=== PATIENT | female | born 1940 | race Caucasian/White ===

== ENCOUNTER 2020-02-19 06:33 | Emergency (ER) | payer MEDICARE, SELFPAY ==
[2020-02-19 06:40] VITALS: BP 156/68; PULSE 92; RESP 18; TEMP 37.4; O2SAT 95
[2020-02-19 07:46] LABS: Add Urine Microscopic? YES; Appearance Urine Cloudy (Clear); Bilirubin Urine Negative (Negative); Blood Urine 2+ (Negative); Color Urine Yellow (Yellow); Glucose Urine UA Negative (Negative); Ketones Urine Trace (Negative); Leukocyte Esterase Ur 3+ LEU/UL (Negative); Nitrate Urine Positive (Negative); Protein Urine 2+ (Negative); Urobilinogen Urine 0.2 mg/dL (0.2-1.0); pH Urine 5.5 (5.0-8.0)
[2020-02-19 07:52] LABS: Bacteria Urine 1+ /hpf; Squamous Epithelial Cell Urine Occasional /hpf (Few); WBC Urine 31-50 /hpf (0-3)
[2020-02-19] MEDS: cefTRIAXone 1 GM VIAL IM (08:19)
[2020-02-19] MEDS: LIDOCAINE HCL 1% LOCAL INJ 20 ML VIAL 2.1 ML INFILTRATE (08:19)
--- NOTE | 2020-02-19 08:55 | ED.FEMALEGU ---
HPI - Female Genitourinary General Chief complaint: Urogenital-Female Stated complaint: Bladder infection since tuesday Time Seen by Provider: 02/19/20 07:30 Source: patient Mode of arrival: ambulatory Limitations: no limitations History of Present Illness HPI Narrative: She comes in after having complaints of dysuria for the past 5 days. Two days ago she had a fever. Today she comes in because she is not feeling well with muscle aches as well. MD elicited complaint: dysuria and UTI Pertinent past history: recurrent UTIs Quality of pain: burning Consistency: intermittent Urinary symptoms: Dysuria Exacerbating factors: urination Relieving factors: other (not urinating) Associated symptoms: denies other symptoms Treatment prior to arrival: none Related Data Allergies Allergy/AdvReac Type Severity Reaction Status Date / Time No Known Allergies Allergy Verified 06/25/19 13:12 Review of Systems Review of Systems: Narrative: Headache, body aches, feeling run down All systems reviewed & are unremarkable except as noted in HPI and below Genitourinary: Comments: dysuria, and increased frequency PMFSH Past Medical History Medical History (Updated 02/19/20 @ 09:09 by Saul Barraza MD) Hypertension Surgical History Surgical History History of appendectomy Social History Social History Smoking status: Never smoker Exam Const: General: no acute distress HENMT: Head: normal to inspection Eyes: General: appearance normal, both eyes and all related structures Neck: Other: supple, negative Kernig's Negative Brudzinski's sign. Resp: Effort & Inspection: normal respiratory effort Auscultation: clear to auscultation bilaterally Cardio: Rate: regular rate Rhythm: regular rhythm GI: GI Palp: Yes Soft to palpation Course Course Emergency Course: She was given ceftriaxone 1gm IM. We did a urine and sent a Covid test, which she will be called with results. Vital Signs Vital signs: Vital Signs Temperature 37.4 C 02/19/20 06:40 Pulse Rate 92 02/19/20 06:40 Respiratory Rate 18 02/19/20 06:40 Blood Pressure 156/68 H 02/19/20 06:40 Pulse Oximetry 95 02/19/20 06:40 Temperature 37.4 C 02/19/20 06:40 Pulse Rate 92 02/19/20 06:40 Respiratory Rate 18 02/19/20 06:40 Blood Pressure 156/68 H 02/19/20 06:40 Pulse Oximetry 95 02/19/20 06:40 MDM - Female Genitourinary Lab Data Attestation: I reviewed the patient's lab results. Labs: Lab Results 02/19/20 02/19/20 Range/Units 07:26 07:32 Urine Color Yellow (Yellow) Urine Appearance Cloudy A (Clear) Urine pH 5.5 (5.0-8.0) Ur Specific [place] 1.020 (1.010-1.020) Urine Protein 2+ H (Negative) Urine Glucose (UA) Negative (Negative) Urine Ketones Trace H (Negative) Ur Blood (Man) 2+ H (Negative) Urine Nitrate Positive H (Negative) Urine Bilirubin Negative (Negative) Urine Urobilinogen 0.2 (0.2-1.0) mg/dL Leukocyte Esterase Rfl 3+ H (Negative) ARACELIS/UL Urine RBC 6-10 H (0-2) /hpf Urine WBC 31-50 H (0-3) /hpf Ur Squamous Epith Cells Occasional (Few) /hpf Urine Bacteria 1+ H (None) /hpf SARS-CoV-2 RNA (RT-PCR) Pending Urine Characteristics Cloudy Discharge Plan Discharge Clinical Impression: Pyelonephritis Patient Disposition: Home, Self-Care Condition: Stable Instructions: Antibiotic Form Prescriptions: New levofloxacin 250 mg tablet 250 mg PO DAILY Qty: 30 RF: 0 No Action hydrochlorothiazide 25 mg tablet 25 mg PO DAILY Qty: 30 RF: 5 losartan 25 mg tablet 25 mg PO DAILY Qty: 30 RF: 5 Follow-up/Referrals: Duke Mejia MD [Primary Care Provider] - Time of Disposition: 09:19
[2020-02-19 09:20] VITALS: BP 150/75; PULSE 84; RESP 18; TEMP 37.2; O2SAT 99
[2020-02-20 18:20] LABS: SARS-CoV-2 RNA PCR Negative
== END 2020-02-19 09:28 | disposition home or self-care (01) ==
PROVIDERS: Emergency Provider Emergency Medicine; PCP Family Medicine
DX: N12 Tubulo-interstitial nephritis, not specified as acute or chronic (principal); I10 Essential (primary) hypertension; Z20.828 Contact with and (suspected) exposure to other viral communicable diseases
CPT/HCPCS: 81001; 87077; 87086; 87088; 87186; 87635; 96372; 99283; C9803; J0696; U0003

== ENCOUNTER 2020-07-30 09:37 | Outpatient (CLI) | payer MEDICARE, SELFPAY ==
[2020-07-30 09:50] LABS: Basophils Absolute Auto 0.03 K/mm3 (0.00-0.10); Basophils Percent Auto 0.7 % (0.0-1.0); Eosinophils Absolute Auto 0.13 K/mm3 (0.02-0.50); Hematocrit 44.6 % (35.0-42.0); Hemoglobin 15.1 g/dL (11.7-13.8); Immature Granulocyte Absolute 0.01 K/mm3 (0.00-0.00); Immature Granulocyte Percent A 0.2 % (0.0-0.0); Lymphocytes Absolute Auto 1.09 K/mm3 (1.10-4.50); Mean Corpuscular HGB Conc 33.9 g/dL (32.0-36.0); Mean Corpuscular Hemoglobin 29.3 pg (27.0-31.0); Mean Corpuscular Volume 86.6 fL (78.0-102.0); Mean Platelet Volume 9.8 fl (9.2-11.8); Monocytes Absolute Auto 0.39 K/mm3 (0.10-0.90); Monocytes Percent Auto 8.9 % (2.0-11.0); Neutrophils Absolute Auto 2.7 K/mm3 (1.7-7.2); Neutrophils Percent Auto 62.2 % (50.0-70.0); Platelet Count Result 198 K/mm3 (150-420); Red Blood Count 5.15 M/mm3 (4.20-5.40); Red Cell Distribution Width 13.4 % (11.6-14.4); White Blood Count 4.4 K/mm3 (4.8-10.8)
[2020-07-30 10:42] LABS: Alanine Aminotransferase 35 U/L (14-59); Albumin Level 4.1 g/dL (3.4-5.0); Alkaline Phosphatase 68 U/L (46-116); Anion Gap 7 mmol/L (8-16); Aspartate Amino Transferase 14 U/L (15-37); Bilirubin,Total 0.8 mg/dL (0.00-1.00); Blood Urea Nitrogen 20 mg/dL (7-18); Calcium 9.5 mg/dL (8.5-10.1); Carbon Dioxide 32 mmol/L (21-32); Chloride 99 mmol/L (98-108); Cholesterol 189 mg/dL (0-200); Estimated Glomerular Filt Rate 53; Glucose 94 mg/dL (70-99); HDL Direct 58 mg/dL (40-60); LDL Cholesterol Calculated 112 mg/dL (<130); Osmolality Calculated 288 mOsm/kg (285-295); Potassium 4.1 mmol/L (3.5-5.1); Sodium 138 mmol/L (136-145); Total Protein 7.7 g/dL (6.4-8.2); Triglycerides 95 mg/dL (0-150)
[2020-07-30 10:48] LABS: Thyroid Stimulating Hormone Reflex 1.64 u/IU/mL (0.36-3.74)
== END 2020-07-30 09:38 | disposition home or self-care (01) ==
LOC: CHSLAB 09:39
PROVIDERS: PCP Family Medicine; Visit Provider Family Medicine
DX: I10 Essential (primary) hypertension (principal)
CPT/HCPCS: 36415; 80053; 80061; 84443; 85025

== ENCOUNTER 2021-08-13 13:06 | Outpatient (CLI) | payer MEDICARE, SELFPAY ==
--- NOTE | ~2021-08-13 | DEXA_ITS ---
Bone Density Report Name: RAFA FIELDS Age: 81 Sex: Female Ethnicity: White Date of : 1940 Indication: postmenopausal; screening for osteoporosis; parental hip fracture; height loss; rheumatoid arthritis; Referring Provider: Kuldip Watt Study: Bone densitometry was performed. Exam Date: August 13, 2021 Accession number: [id number] Bone Density: Region BMD T-score Z-score Classification AP Spine(L1-L4) 0.978 -0.6 2.0 Normal Femoral Neck (Left) 0.708 -1.3 1.0 Osteopenia Total Hip (Left) 0.833 -0.9 1.1 Normal Femoral Neck (Right) 0.696 -1.4 0.9 Osteopenia Total Hip (Right) 0.818 -1.0 1.0 Normal Femoral Neck Mean 0.702 -1.3 0.9 Osteopenia Total Hip Mean 0.826 -1.0 1.1 Normal World Health Organization criteria for BMD impression classify patients as: Normal (T-score at or above -1.0), Osteopenia (T-score between -1.0 and -2.5), or Osteoporosis (T-score at or below -2.5). 10-year Fracture Risk(1): Major Osteoporotic Fracture 26% Hip Fracture 15% Reported Risk Factors: [place] (), Neck BMD=0.696, BMI=30.7, parental fracture, rheumatoid arthritis (1) FRAX(R) Version 3.08. Fracture probability calculated for an untreated patient. Fracture probability may be lower if the patient has received treatment. Clinical Information Provided by Patient: Parent has had a hip fracture Has rheumatoid arthritis Has used the following medications: Vitamin D, Calcium, multi vit Patient maximum height was 63 Menopause Age: 52 No regular weight bearing exercise Drinks caffeinated beverages Onset of menses at age 13 Number of children 3 Impression: The patient has low bone mass, based on the Right Femoral Neck T-score. The patient has risk factors, including: parental hip fracture. Discussion: BONE DENSITY IS LOW AT ONE OR MORE SKELETAL SITES. This patient's lowest T-score is low at one or more skeletal sites. It meets the World Health Organization's (WHO) criteria for ?low bone mass? (T-score between -1.0 and -2.5). The patient's 10-year risk of fracture as calculated by FRAX is less than the threshold where pharmacological therapy is recommended by the National Osteoporosis Foundation (NOF). However, all treatment decisions require clinical judgment and consideration of individual patient factors, including patient preferences, comorbidities, previous drug use, risk factors not captured in the FRAX model (e.g., frailty, falls, vitamin D deficiency, increased bone turnover, interval significant decline in bone density) and possible under or overestimation of fracture risk by FRAX. The patient should follow a healthful lifestyle (good nutrition with adequate calcium and vitamin D, and appropriate weight-bearing exercise). Follow-Up: Consider repeating th
== END 2021-08-13 13:07 | disposition home or self-care (01) ==
LOC: CHSIMG 13:08
PROVIDERS: PCP Family Medicine; Visit Provider Family Medicine
DX: Z78.0 Asymptomatic menopausal state (principal)
CPT/HCPCS: 77080

== ENCOUNTER 2022-02-26 10:51 | Outpatient (CLI) | payer MEDICARE, SELFPAY ==
--- NOTE | 2022-02-26 10:52 | ECG_ITS ---
Measurements Intervals [place] Rate: 88 P: 67 MN: 157 QRS: 68 QRSD: 129 T: 73 QT: 375 QTc: 456 Interpretive Statements SINUS RHYTHM ATRIAL PREMATURE COMPLEX RIGHT BUNDLE BRANCH BLOCK ABNORMAL ECG NO PREVIOUS ECG AVAILABLE FOR COMPARISON Electronically Signed On 02-26-2022 11:57:01 CLIPPING MARKER by Mohan Garrison D.O.
== END 2022-02-26 10:52 | disposition home or self-care (01) ==
LOC: CHSCARD 10:52
PROVIDERS: PCP Family Medicine; Visit Provider Family Medicine
DX: Z01.810 Encounter for preprocedural cardiovascular examination (principal)
CPT/HCPCS: 93005

== ENCOUNTER 2022-03-03 12:19 | Outpatient (CLI) | payer MEDICARE, SELFPAY ==
--- NOTE | 2022-03-03 12:37 | ECHO_ITS ---
Patient Info Name: Christy Taylor Age: 81 years : 1940 Gender: Female Ht: 59 in Wt: 142 lbs BSA: 1.66 m2 HR: 66 bpm BP: 158 / 86 mmHg Technical Quality: Good Exam Date: 03/03/2022 12:58 PM Exam Location: [facility] Patient Status: Outpatient Admit Date: 03/03/2022 Staff Ordering Physician: Kuldip Watt DO Termite Control Technician: Marie Suh RCS Attending Provider: Kuldip Watt DO Referring Physician: Alysa BRUMFIELD; Exam Type: CA echo doppler color flow Study Info Indications I10 - Essential (primary) hypertension Complete two-dimensional, color flow and Doppler transthoracic echocardiogram is performed. Summary 1. Complete two-dimensional, color flow and Doppler transthoracic echocardiogram is performed. 2. Left ventricular chamber dimension is normal. 3. Left ventricular systolic function is normal, estimated at 60-65%. 4. The left ventricular diastolic function is grade I diastolic dysfunction. 5. E/e' 11 is mildly elevated. 6. Global longitudinal strain is normal at -23.7%. 7. Left atrial chamber dimension is mildly enlarged. 8. Right atrial chamber dimension is mildly enlarged. 9. There is mild mitral valve regurgitation. 10. There is mild tricuspid valve regurgitation. 11. Mild pulmonary hypertension, estimated pulmonary arterial systolic pressure is 43 mmHg. 12. There is trace pulmonic regurgitation. 13. Dilated inferior vena cava with >50% collapse upon inspiration consistent with elevated right atrial pressure, 10 mmHg. Left Ventricle E/e' 11 is mildly elevated. Global longitudinal strain is normal at -23.7%. Left ventricular chamber dimension is normal. Left ventricular systolic function is normal, estimated at 60-65%. The left ventricular diastolic function is grade I diastolic dysfunction. Right Ventricle Right ventricular chamber dimension is normal. Right ventricular systolic function is normal. Left Atria Left atrial chamber dimension is mildly enlarged. Right Atria Right atrial chamber dimension is mildly enlarged. Aortic Valve The aortic valve is trileaflet. There is no aortic valve stenosis. There is no aortic valve regurgitation. Pulmonic Valve There is trace pulmonic regurgitation. Mitral Valve There is no mitral valve stenosis. There is mild mitral valve regurgitation. Tricuspid Valve There is mild tricuspid valve regurgitation. Mild pulmonary hypertension, estimated pulmonary arterial systolic pressure is 43 mmHg. Pericardium/Pleural There is no pericardial effusion. Inferior Vena Cava Dilated inferior vena cava with >50% collapse upon inspiration consistent with elevated right atrial pressure, 10 mmHg. Aorta The aortic root size at the sinus of Valsalva is normal. Left Ventricular Outflow Tract Name Value Normal LVOT 2D LVOT Diameter 2.0 cm LVOT Doppler LVOT Peak Gradient 8 mmHg LVOT Mean Gradient 4 mmHg LVOT VTI 25 cm LVOT VTI/AV VTI Ratio 1.0 LVOT Stroke Volume
== END 2022-03-03 12:20 | disposition home or self-care (01) ==
PROVIDERS: PCP Family Medicine; Visit Provider Family Medicine
DX: I10 Essential (primary) hypertension (principal); I08.3 Combined rheumatic disorders of mitral, aortic and tricuspid valves
CPT/HCPCS: 93306

== ENCOUNTER 2022-05-10 13:49 | Outpatient (CLI) | payer MEDICARE, SELFPAY ==
[2022-05-10 14:03] LABS: Hematocrit 35.9 % (35.0-42.0); Mean Corpuscular HGB Conc 33.4 g/dL (32.0-36.0); Mean Corpuscular Hemoglobin 27.3 pg (27.0-31.0); Mean Corpuscular Volume 81.6 fL (78.0-102.0); Mean Platelet Volume 10.4 fl (9.2-11.8); Platelet Count Result 216 K/mm3 (150-420); Red Cell Distribution Width 14.5 % (11.6-14.4)
[2022-05-10 14:30] LABS: Alanine Aminotransferase 31 U/L (14-59); Albumin Level 3.7 g/dL (3.4-5.0); Alkaline Phosphatase 90 U/L (46-116); Anion Gap 8 mmol/L (8-16); Aspartate Amino Transferase 19 U/L (15-37); Bilirubin,Total 0.4 mg/dL (0.00-1.00); Blood Urea Nitrogen 11 mg/dL (7-18); Calcium 9.6 mg/dL (8.5-10.1); Carbon Dioxide 31 mmol/L (21-32); Chloride 103 mmol/L (98-108); Estimated Glomerular Filt Rate > 60; Glucose 97 mg/dL (70-99); Osmolality Calculated 293 mOsm/kg (285-295); Potassium 3.2 mmol/L (3.5-5.1); Sodium 142 mmol/L (136-145); Total Protein 7.3 g/dL (6.4-8.2)
[2022-05-10 14:38] LABS: CRP < 0.5 mg/dL (0.0-0.9)
== END 2022-05-10 13:50 | disposition home or self-care (01) ==
LOC: CHSLAB 13:53
PROVIDERS: PCP Family Medicine; Visit Provider Family Medicine
DX: R22.0 Localized swelling, mass and lump, head (principal)
CPT/HCPCS: 36415; 80053; 85027; 86140

== ENCOUNTER 2022-05-13 12:39 | Outpatient (CLI) | payer MEDICARE, SELFPAY ==
--- NOTE | ~2022-05-13 | US_ITS ---
EXAMINATION: US soft tissue head and neck DATE: 05/13/2022 13:20 INDICATION: Localized swelling, mass and lump, head. Right neck lump. TECHNIQUE: Multiple grayscale and Doppler ultrasound images of the head and neck were obtained. COMPARISON: None FINDINGS: There are normal lymph nodes in right neck in the patient's area of concern. IMPRESSION: 1. No abnormal neck mass or lymphadenopathy. Reviewed, dictated and finalized at location A. [facility]
== END 2022-05-13 12:40 | disposition home or self-care (01) ==
LOC: CHSIMG 12:40
PROVIDERS: PCP Family Medicine; Visit Provider Family Medicine
DX: R22.0 Localized swelling, mass and lump, head (principal)
CPT/HCPCS: 76536

== ENCOUNTER 2024-06-25 12:26 | Outpatient (CLI) | payer MEDICARE, SELFPAY ==
--- NOTE | ~2024-06-25 | DEXA_ITS ---
Bone Density Report Name: RAFA FIELDS Age: 84 Sex: Female Ethnicity: White Date of : 1940 Indication: postmenopausal; screening for osteoporosis; height loss; Referring Provider: UNKNOWN, UNKNOWN Study: Bone densitometry was performed. Exam Date: June 25, 2024 Accession number: [id number] Bone Density: Region BMD T-score Z-score Classification AP Spine(L1-L4) 0.856 -1.7 1.0 Osteopenia Femoral Neck (Left) 0.677 -1.6 0.8 Osteopenia Total Hip (Left) 0.725 -1.8 0.4 Osteopenia Femoral Neck (Right) 0.708 -1.3 1.1 Osteopenia Total Hip (Right) 0.713 -1.9 0.3 Osteopenia Femoral Neck Mean 0.692 -1.4 1.0 Osteopenia Total Hip Mean 0.719 -1.8 0.3 Osteopenia World Health Organization criteria for BMD impression classify patients as: Normal (T-score at or above -1.0), Osteopenia (T-score between -1.0 and -2.5), or Osteoporosis (T-score at or below -2.5). 10-year Fracture Risk(1): Major Osteoporotic Fracture 14% Hip Fracture 5.6% Reported Risk Factors: [place] (), Neck BMD=0.677, BMI=24.3, smoking (1) FRAX(R) Version 3.08. Fracture probability calculated for an untreated patient. Fracture probability may be lower if the patient has received treatment. Previous Exams: Region Exam Age BMD T-score BMD Change BMD Change Date g/cm2 vs Baseline vs Previous AP Spine (L1-L4) 06/25/2024 84 0.856 -1.7 -0.122 (-12.5% -0.122 (-12.5% 08/13/2021 81 0.978 -0.6 Total Hip(Left) 06/25/2024 84 0.725 -1.8 -0.108 (-13.0% -0.108 (-13.0% 08/13/2021 81 0.833 -0.9 Total Hip(Right) 06/25/2024 84 0.713 -1.9 -0.105 (-12.9% -0.105 (-12.9% 08/13/2021 81 0.818 -1.0 *Denotes significance at 95% confidence level, LSC for AP Spine = 0.022 g/cm2, LSC for Total Hip = 0.027 g/cm2 Clinical Information Provided by Patient: Smokes Patient maximum height was 60 Menopause Age: 52 Does not regularly consume dairy products Drinks caffeinated beverages Onset of menses at age 13 Number of children 3 Impression: The patient has low bone mass, based on the Right Total Hip T-score. The patient has risk factors, including: smoking. The BMD for the AP Spine (L1-L4) decreased, changing by -12.5% since the last DXA exam. The BMD for the Total Hip(Left) decreased, changing by -13.0% since the last DXA exam. The BMD for the Total Hip(Right) decreased, changing by -12.9% since the last DXA exam. Discussion: BONE DENSITY IS LOW AT ONE OR MORE SKELETAL SITES. This patient's lowest T-score is low at one or more skeletal sites. It meets the World Health Organization's (WHO) criteria for ?low bone mass? (T-score between -1.0 and -2.5). The patient's 10-year risk of fracture as calculated by FRAX is less than the threshold where pharmacological therapy is recommended by the National Osteoporosis Foundation (NOF). However, all treatment decisions require clinical judgment and consideration of individual patient factors, including patient preferences, comorbidities, previous drug use, risk factors not captured in the FRAX model (e.g., frailty, falls, vitamin D deficiency, increased bone turnover, interval significant decline in bone density) and possible under or overestimation of fracture risk by FRAX. The patient should follow a healthful lifestyle (good nutrition with adequate calcium and vitamin D, and appropriate weight-bearing exercise). Follow-Up: Consider repeating this study in 2 years to reassess this patient's status, or sooner if there is some new clinical indication. Reported by: ALVARO on 06/25/2024 12:54:00 PM. Reviewed, dictated and finalized at location A.
--- OUTSIDE RECORDS SUMMARY | 2024-06-25 14:21 | XMS_ITS | Clinical Summary ---
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 Name Role Phone Kuldip Watt DO Primary Care Provider Aurda Berry RN Unavailable [phone] Allergies Active Allergy Reactions Criticality Noted Date Comments Amoxicillin Vomiting Low 05/26/2024 Medications losartan-hydro CHLOROthiazide (HYZAAR) 100-12.5 mg per tablet Take 1 tablet by mouth daily 06/08/19 23 Active CHOLECALCIFERO L, VITAMIN D3, ORAL Take 1 tablet by mouth daily Active CYANOCOBALAMIN , VITAMIN B-12, ORAL Take 1 tablet by mouth daily Active amLODIPine (NORVASC) 5 mg tablet Take 1 tablet (5 mg total) by mouth daily Active TURMERIC ORAL Take 1 tablet by mouth daily Active vit C/vit E ac/selenium/gi nkgo (MEMORY COMPLEX ORAL) Take 1 tablet by mouth 2 (two) times a day Active VITAMIN C, ASCORBATE CALCIUM, ORAL Take 1 tablet by mouth daily Active chlorhexidine (PERIDEX) 0.12 % oral rinse Swish and spit 15 mL 4 (four) times a day 120 mL 05/29/19 25 Active apixaban (ELIQUIS) 5 mg tablet Take 1 tablet (5 mg total) by mouth 2 (two) times a day 60 tablet 1 05/29/19 25 025 Active methIMAzole (TAPAZOLE) 10 mg tabletIndicati ons:Graves disease Take 1 tablet (10 mg total) by mouth daily 90 tablet 3 02 026 Active metoprolol XL (TOPROL-XL) 50 mg extended release tabletIndicati ons:Graves disease Take 1 tablet (50 mg total) by mouth daily 90 tablet 3 06/15/19 026 Active azithromycin (ZITHROMAX) 250 mg tablet TAKE 2 TABLETS BY MOUTH TODAY, THEN TAKE 1 TABLET DAYS 2 THRU 5 05/21/19 25 025 Discontinued(Er ror) CALCIUM CARBONATE ORAL Take 1 tablet by mouth daily 025 Discontinued(St op Taking at Discharge) apixaban (ELIQUIS) 5 mg tablet Take 1 tablet (5 mg total) by mouth 2 (two) times a day 60 tablet 1 05/29/19 25 025 Discontinued clindamycin (CLEOCIN) 300 mg capsuleIndicat ions:Skin/Soft Tissue Infection Take 1 capsule (300 mg total) by mouth 4 (four) times a day for 16 doses 16 capsule 05/29/19 25 025 methIMAzole (TAPAZOLE) 10 mg tablet Take 0.5 tablets (5 mg total) by mouth daily 15 tablet 11 05/30/19 025 Discontinued(Re order) metoprolol XL (TOPROL-XL) 25 mg extended release tablet Take 1 tablet (25 mg total) by mouth daily 30 tablet 05/29/19 025 Discontinued(Re order) metoprolol XL (TOPROL-XL) 50 mg extended release tabletIndicati ons:Graves disease Take 1 tablet (50 mg total) by mouth daily 90 tablet 3 06/15/19 025 Discontinued methIMAzole (TAPAZOLE) 10 mg tabletIndicati ons:Graves disease Take 1 tablet (10 mg total) by mouth daily 90 tablet 3 06/15/19 025 Discontinued Active Problems Problem Noted Date Diagnosed Date Low TSH level 05/27/2024 Assessment & Plan (05/29/2024 12:05 PM CLERICAL STOCK INSPECTOR): - in workup for Afib noted TSH <0.01 and FT4 elevated 2.83. Some cf hyperthyroidism with new dx uncontrolled afib - CT neck w/o nodules >1cm - FT3 6.2, FT4 2.83, and Anti-TPO Abs 105 (elevated) - Endo c/s today - requested starting PTU 200 mg Q6H in the meantime --> transitioned to methimazole 10 mg daily to decrease to 5 mg daily on discharge - Will need follow up thyroid labs in 2-3 weeks Submandibular abscess 05/26/2024 Assessment & Plan (05/29/2024 12:01 PM CLERICAL STOCK INSPECTOR): - ENT was consulted from ED and evaluated patient. Per discussion with ENT, there was a little crusting and small opening with serous fluid drainage. There was no pustular drainage to send for culture. Recommend OMFS consult as feel that periapical lucency noted on CT could be cause of infection. - Unasyn per ENT recs (05/25-05/28) pending OMFS evaluation. Transitioned to augmentin (05/28) --> clindamycin (05/29 - 06/01) - OMFS consulted. Extracted tooth #31. - Soft diet - Peridex QID - Supportive care Hypertension, essential 05/26/2024 Assessment & Plan (05/26/2024 11:19 AM CLERICAL STOCK INSPECTOR): -continue home losartan hctz -ctm Atrial fibrillation 05/26/2024 Assessment & Plan (05/29/2024 12:03 PM CLERICAL STOCK INSPECTOR): - EKG with AF w rate 114 - Per daughter at bedside 05/26, this is not a new diagnosis but pt denies. On clarification 05/27, daughter says that it was another family member and the patient has not had prior dx of afib Patient has not been on anticoagulation in the past. Is agreeable to [facility] AC. No sig bleeding hx or hx falls. Chadsvasc score 4 for age, sex, hx htn. - TTE pending - TSH low and elevated T4. See other problem. - can paiz check/start DOAC closer to dc - Eliquis ~$150 for 1 month - Continue telemetry monitoring - Metoprolol low dose Q6h and titrate for HR - will transition to XL daily on d/c - monitor electrolytes, goal mag> 2, K>4 Pulmonary nodules 05/26/2024 Assessment & Plan (05/26/2024 11:20 AM CLERICAL STOCK INSPECTOR): Pulmonary nodules, for example right upper lobe lateral margin 0.2 cm (series 3, image 79) and left upper lobe 0.2 cm (series 2, image 69) noted on CT report. Per radiology report, According to recent guidelines by the Fleischner Society, no follow up is required for incidental nodules less than 6 mm found on incomplete thoracic imaging on the basis of estimated low risk of malignancy. -recommend follow up and further discussion with PCP Status post total left knee replacement 03/08/20 22 Primary osteoarthritis of left knee 02/19/2022 Overview (05/26/2024): Added automatically from request for surgery [id number] Bilateral knee pain 02/04/2022 Encounters Date Type Department Care Team Description 06/19/2024 SHOP/CHAP Subsequent Outreach [facility]NAG[facility] [address] [place] [address] Audra Berry RN 06/15/2024 10:40 AM CLERICAL STOCK INSPECTOR Office Visit [facility] Endocrinology Metabolism and Lipid [address] 13[address] [place] [address] [place] [address] Kika Goodman MD PhD Graves disease (Primary Dx); Other osteoporosis without current pathological fracture 06/15/2024 8:20 AM CLERICAL STOCK INSPECTOR Lab [facility] [address] [place] [address] Low TSH level 06/11/2024 SHOP/CHAP Subsequent Outreach [facility] [address] [place] [address] Audra Berry, RN 06/05/2024 SHOP/CHAP Subsequent Outreach [facility]NAG[facility] [address] [place] [address] Audra Berry, RN 05/30/2024 SHOP/CHAP Initial Outreach [facility]NAG[facility] [address] [place] [address] Audra Berry RN 05/30/2024 SHOP/CHAP Initial Eligibility Review [facility] OP CASE MANAGEMENT [address] [place] [address] Audra Berry RN 05/26/2024 6:57 AM CLERICAL STOCK INSPECTOR - 05/29/2024 2:45 PM CLERICAL STOCK INSPECTOR Hospital Encounter [facility] [address] [place] [address] Audra Espinoza MD Dao, MD Calos Steel [place] Jeffrey, MD Pinkerton, MD Ayan Morin, Zaki Rich MD Submandibular abscess (Primary Dx); Chronic atrial fibrillation (HCC); Low TSH level Discharge Disposition: Discharge to home or self care 05/25/2024 9:22 PM CLERICAL STOCK INSPECTOR - 05/26/2024 4:37 AM CLERICAL STOCK INSPECTOR Emergency [facility] Emergency Department [address] [place] [address] Tash Fink MD Wala, Brown Acuña MD Dental abscess (Primary Dx); Submandibular abscess Discharge Disposition: Discharge to not defined facility from Last 3 Months Immunizations Immunization Administration Dates Next Due ZOSTER LIVE 04/17/2013 Surgical History Surgery Date Site/Laterality Comments REPLACEMENT TOTAL KNEE 04/18/2021 - 04/17/2022 Left Family History Medical History Relation Name Comments Hyperthyroidism Daughter Carlene s/p MARTIN Relation Name Status Comments Daughter Carlene Alive Social History Tobacco Use Types Packs/Day Years Used Date Smoking Tobacco: Unknown Tobacco Cessation:Counseling Given: Not Answered [facility] Utilities Answer Date Recorded In the past 12 months has [employer], [employer], oil, or water [employer] threatened to shut off services in your home? No 05/30/2024 Social Connection and Isolat ion Panel [NHANES] Answer Date Recorded In a typical week, how many times do you talk on the phone with family, friends, or neighbors? Twice a week 05/30/2024 How often do you get togethe r with friends or relatives? More than three times a week 05/30/2024 How often do you attend chur or presybeterian services? More than 4 times per year 05/30/2024 Do you belong to any clubs o r organizations such as advent groups, unions, fraternal or athletic groups, or school groups? Yes 05/30/2024 How often do you attend meet ings of the clubs or organizations you belong to? More than 4 times per year 05/30/2024 Are you , , di vorced, , never , or living with a partner? 05/30/2024 Overall Financial Resource Strain (CARDIA) Answe r Date Recorded How hard is it for you to pa y for the very basics like food, housing, medical care, and heating? Not hard at all 05/30/2024 Hunger Vital Sign Answer Date Recorded Within the past 12 months, y ou worried that your food would run out before you got the money to buy more. Never true 05/30/19 25 Within the past 12 months, t he food you bought just didn't last and you didn't have money to get more. Never true 05/30/2024 PRAPARE - Transportation Answer Date Re corded In the past 12 months, has l ack of transportation kept you from medical appointments or from getting medications? No 05/19 In the past 12 months, has l ack of transportation kept you from meetings, work, or from getting things needed for daily living? No 05/30/2024 Housing Stability Vital Sign Answer Alonso e Recorded In the last 12 months, was t here a time when you were not able to pay the mortgage or rent on time? No 05/30/2024 In the past 12 months, how m any times have you moved where you were living? 0 05/30/2024 At any time in the past 12 m [facility], were you homeless or living in a assisted (including now)? No 05/30/2024 Personal Safety Answer Date Recorded Have you ever been in or are you currently in a harmful physical or emotional relationship or is someone making you feel afraid or unsafe? Denies 05/26/2024 Comments Unknown Sex and Gender Information Value Date Recorded Sex Assigned at Not on file Legal Sex Female 5:17 PM CLERICAL STOCK INSPECTOR Gender Identity Not on file Sexual Orientation Not on file Obstetrics History Last Filed Vital Signs Vital Sign Reading Time Taken Comments Blood Pressure 130/77 06/15/2024 10:17 AM CLERICAL STOCK INSPECTOR Pulse 107 06/15/2024 10:17 AM CLERICAL STOCK INSPECTOR Temperature 37 C (98.6 F) 06/15/2024 10:17 AM CLERICAL STOCK INSPECTOR Respiratory Rate 16 05/29/2024 2:25 PM CLERICAL STOCK INSPECTOR Oxygen Saturation 100% 05/29/2024 2:25 PM CLERICAL STOCK INSPECTOR Inhaled Oxygen Concentration - - Weight 54.3 kg (119 lb 12.8 oz) 025 10:17 AM CLERICAL STOCK INSPECTOR Height 149.9 cm (4' 11 ) 06/15/2024 10: 17 AM CLERICAL STOCK INSPECTOR Body Mass Index 24.2 06/15/2024 10:17 AM CLERICAL STOCK INSPECTOR Plan of Treatment Health Maintenance Due Date Last Done Comments Depression Screening 1940 Osteoporosis Screening-Bone Density Scan 1940 DTaP/Tdap/Td Vaccine (1 - Tdap) 1953 Hepatitis B Screening 1960 Pneumococcal vaccine 65+ (1 of 2 - PCV) 1961 Well Visit 65+ 2007 Zoster Vaccine (2 of 3) 06/12/2013 04/17/2013 Influenza Vaccine (#1) 2023 Fall Risk Assessment 05/29/2025 05/29/2024 Goals Goal Patient Goal Type Associated Problems Recent Progress Patient-Stated? Author Patient will have kept initial appointment and will show signs of improvement to baseline Care Plan Initial Follow-Up Appointment Audra Motta, ALEJANDRO Note: Pt has appointment with PCP on 06/07 and is able to drive herself to local appointments and errands. Patient will have access to medications needed for healthy outcomes Care Plan Barriers to Medication Adherence Audra Motta, director of mechanical engineering Procedure Name Priority Date/Time Associated Diagnosis Comments T4, FREE Routine 06/15/2024 8:15 AM CLERICAL STOCK INSPECTOR Low TSH level THYROID FUNCTION CASCADE Routine 06/15/2024 8:15 AM CLERICAL STOCK INSPECTOR Low TSH level TRANSTHORACIC ECHO (TTE) COMPLETE W DOPPLER/CF WO CONTRAST Routine 05/29/2024 2:08 PM CLERICAL STOCK INSPECTOR EGFR Routine 05/29/2024 12:08 AM CLERICAL STOCK INSPECTOR DIFFERENTIAL AUTO Routine 05/29/2024 12: 08 AM CLERICAL STOCK INSPECTOR HEPATIC FUNCTION PANEL Routine 12:08 AM CLERICAL STOCK INSPECTOR MAGNESIUM Routine 05/29/2024 12:08 AM CLERICAL STOCK INSPECTOR CBC WITH AUTO DIFFERENTIAL Routine 05/29/2024 12:08 AM CLERICAL STOCK INSPECTOR BASIC METABOLIC PANEL Routine 05/29/2024 12:08 AM CLERICAL STOCK INSPECTOR TSH RECEPTOR ANTIBODY Routine 05/27/2024 8:59 PM CLERICAL STOCK INSPECTOR EGFR Routine 05/27/2024 8:58 PM CLERICAL STOCK INSPECTOR DIFFERENTIAL AUTO Routine 05/27/2024 8:5 8 PM CLERICAL STOCK INSPECTOR THYROID STIMULATING IMMUNOGLOBULIN Routine 05/27/2024 8:58 PM CLERICAL STOCK INSPECTOR THYROID PEROXIDASE ANTIBODY Routine 05/27/2024 8:58 PM CLERICAL STOCK INSPECTOR MAGNESIUM Routine 05/27/2024 8:58 PM CLERICAL STOCK INSPECTOR CBC WITH AUTO DIFFERENTIAL Routine 05/27/2024 8:58 PM CLERICAL STOCK INSPECTOR BASIC METABOLIC PANEL Routine 05/27/2024 8:58 PM CLERICAL STOCK INSPECTOR T3, FREE Routine 05/27/2024 5:05 AM CLERICAL STOCK INSPECTOR THYROID FUNCTION CASCADE Routine 05/27/2024 5:05 AM CLERICAL STOCK INSPECTOR T4, FREE Routine 05/27/2024 5:05 AM CLERICAL STOCK INSPECTOR MAGNESIUM Routine 05/27/2024 5:05 AM CLERICAL STOCK INSPECTOR EGFR Routine 05/27/2024 5:05 AM CLERICAL STOCK INSPECTOR RENAL FUNCTION PANEL Routine 05/27/2024 5:05 AM CLERICAL STOCK INSPECTOR CBC WITHOUT DIFFERENTIAL Routine 05/27/2024 5:05 AM CLERICAL STOCK INSPECTOR XR ORTHOPANTOGRAM/PANOREX IP Routine 05/26/2024 5:44 PM CLERICAL STOCK INSPECTOR EGFR STAT 05/26/2024 11:50 AM CLERICAL STOCK INSPECTOR CREATININE STAT 05/26/2024 11:50 AM CLERICAL STOCK INSPECTOR APTT STAT 05/26/2024 11:50 AM CLERICAL STOCK INSPECTOR CBC WITHOUT DIFFERENTIAL STAT 05/26/2024 11:50 AM CLERICAL STOCK INSPECTOR PROTIME-INR STAT 05/26/2024 11:50 AM CLERICAL STOCK INSPECTOR B CHECK SAMPLE STAT 05/26/2024 8:40 AM CLERICAL STOCK INSPECTOR APTT STAT 05/26/2024 8:09 AM CLERICAL STOCK INSPECTOR PROTIME-INR STAT 05/26/2024 8:09 AM CLERICAL STOCK INSPECTOR TYPE AND SCREEN STAT 05/26/2024 8:09 AM CLERICAL STOCK INSPECTOR ECG 12-LEAD Routine 05/26/2024 7:31 AM CLERICAL STOCK INSPECTOR PROTIME-INR STAT 05/25/2024 11:18 PM CLERICAL STOCK INSPECTOR SEPSIS LACTATE WITH REFLEX STAT 05/25/2024 11:18 PM CLERICAL STOCK INSPECTOR BLOOD CULTURE STAT 05/25/2024 10:52 PM CLERICAL STOCK INSPECTOR BLOOD CULTURE STAT 05/25/2024 10:52 [address] SOFT TISSUE NECK W CONTRAST ED 05/25/2024 8:28 PM CLERICAL STOCK INSPECTOR EGFR STAT 05/25/2024 6:52 PM CLERICAL STOCK INSPECTOR DIFFERENTIAL AUTO STAT 05/25/2024 6: 52 PM CLERICAL STOCK INSPECTOR COMPREHENSIVE METABOLIC PANEL STAT 05/25/2024 6:52 PM CLERICAL STOCK INSPECTOR CBC WITH AUTO DIFFERENTIAL STAT 05/25/2024 6:52 PM CLERICAL STOCK INSPECTOR from Last 3 Months Results * (ABNORMAL) Thyroid Function [place] (06/15/2024 8:15 AM CLERICAL STOCK INSPECTOR) Pathologist [facility] TSH <0.01(L) 0.30 - 4.20 mcIUnit/mL Blood 06/15/2024 8:15 AM CLERICAL STOCK INSPECTOR 06/15/2024 8:31 AM CLERICAL STOCK INSPECTOR Zaki Botello MD LAB BLOOD ORDERABLES F inal Result Performing Organization Address [facility] Co de Phone Number [facility] Department [place] [address] * (ABNORMAL) T4, free (06/15/2024 8:15 AM CLERICAL STOCK INSPECTOR) [facility] Free T4 1.99(H) 0.90 - 1.70 ng/dL Blood 06/15/2024 8:15 AM CLERICAL STOCK INSPECTOR 06/15/2024 8:36 AM CLERICAL STOCK INSPECTOR Narrative [facility]CARLOS [facility] - 06/15/2024 9:35 AM CLERICAL STOCK INSPECTOR This test was reflexed from a TSH result. Zaki Botello MD LAB BLOOD ORDERABLES F inal Result Performing Organization Address [facility] Co de Phone Number [facility] Department [place] [address] * TRANSTHORACIC ECHO (TTE) COMPLETE W DOPPLER/CF WO CONTRAST (05/29/2024 2:08 PM CLERICAL STOCK INSPECTOR) Pathologist [facility] LV EF % CONS SCIMAGE Anatomical Region Laterality Modality Ultrasound 05/29/2024 12:5 5 PM CLERICAL STOCK INSPECTOR Narrative 05/29/2024 5:33 PM CLERICAL STOCK INSPECTOR [facility] Cardiac [place] [address] [place] [address] Transthoracic Echocardiographic Report Patient Name: RAFA FIELDS : 1940 (84y ) Gender: F Study Date: 05/29/2024 12:55:15 PM Ht(Inch): 59 Wt(Lb): 134.92 BSA: 1.6 Nurse Prn: Cony Solomon [facility] Location: [id number] Order Provider: MARK CLAYTON Heart Rate: 79 BMI: 27.25 BP: 133/90 Quality: The study images were of technically good quality. Ref Provider: MARK CLAYTON PROCEDURES: Echocardiographic Report: [id number]) Transthoracic complete echo with strain imaging, 2D, spectral and tissue Doppler, color flow Doppler, M-mode. Contrast: Unable to obtain IV access. INDICATIONS: New dx Afib, evaulate valves. FINDINGS: Left Ventricle: Mildly dilated left ventricle based on volume index. Normal LV wall thickness. Normal left ventricular systolic function. The Ejection Fraction (Costa's) is measured at 55 %. The average global longitudinal strain rate is abnormal. The LV global strain is: -11.6 %. Right Ventricle: Right ventricular dilatation. Moderate right ventricular hypokinesis. Left Atrium: Mildly dilated left atrium. Right Atrium: Right atrial dilatation. Atrial Septum: The interatrial septum is normal in appearance. Mitral Valve: There is mild mitral valve regurgitation. No stenosis present. MV Structure Abnormalities: Mitral valve leaflets appear mildly thickened. Aortic Valve: Trileaflet aortic valve. The aortic cusps appear mildly thickened. Mild aortic valve regurgitation. No aortic valve stenosis. Tricuspid Valve: The tricuspid valve demonstrates normal leaflet structure. There is moderate tricuspid regurgitation. The estimated pulmonary artery systolic pressure is 45 mmHg. Pulmonic Valve: The pulmonic valve demonstrates normal leaflet structure. There is moderate pulmonic regurgitation. Pericardium: Normal pericardium without evidence of pericardial effusion. No pericardial effusion. Aorta: The aortic root is normal in size. The aortic root is normal in size when indexed. There is dilation of the ascending aorta when indexed. IVC: The IVC (inferior vena cava) was >2.1 cm and collapsibility <50%. Rhythm: The rhythm during the study was atrial fibrillation. CONCLUSIONS: 1. The rhythm during the study was atrial fibrillation. 2. Mildly dilated left ventricle based on volume index. Normal LV wall thickness. Normal left ventricular systolic function. The Ejection Fraction (Costa's) is measured at 55 %. The average global longitudinal strain rate is abnormal. 3. Right ventricular dilatation. Moderate right ventricular hypokinesis. 4. Mildly dilated left atrium. 5. There is mild mitral valve regurgitation. Mitral valve leaflets appear mildly thickened. 6. The aortic cusps appear mildly thickened. Mild aortic valve regurgitation. No aortic valve stenosis. 7. There is moderate tricuspid regurgitation. The estimated pulmonary artery systolic pressure is 45 mmHg. 8. The pulmonic valve demonstrates normal leaflet structure. There is moderate pulmonic regurgitation. MEASUREMENTS: 2D/MM Value Range Doppler Value Range LVIDd 2D 4.76 cm [ 3.80 - 5.20 ] AV Peak Campos 1.49 m/s [ 1.00 - 1.70 ] LVIDs 2D 3.27 cm [ 2.20 - 3.50 ] AV Peak PG 8.88 IVSd 2D 0.89 cm [ 0.60 - 0.90 ] AV Mean PG 4.64 mmHg LVPWd 2D 0.82 cm [ 0.60 - 0.90 ] AV VTI 26.32 cm LV Thickness Ratio 1.09 LVOT Peak Campos 1.11 m/s [ 0.70 - 1.10 ] LV FS 2D 31.28 % [ 27.00 - 45.00 ] LVOT Peak PG 4.93 LV Mass 2D 139.66 g LVOT Mean PG 2.56 mmHg LV Mass Index 2D 87.29 g/m2 LVOT VTI 18.55 cm RWT 0.34 LVOT Diam 1.97 cm EDV Mod BP 108.55 ml [ 46.00 - 106.00 ] JOANNA VTI 2.15 cm2 LV EDV Index 67.84 ml/m2 LVOT/AV VTI 0.70 - Dimensionless index (DVI) ESV Mod BP 48.91 ml [ 14.00 - 42.00 ] MV Peak Campos 0.58 m/s EF Mod BP 55 % [ 54 - 74 ] MV Peak PG 1.35 LV GLS -11.6 % [ -18.0 - -16.0 ] MV Mean PG 0.38 mmHg LA Length 2C 5.36 cm MV VTI 9.49 cm LA Length 4C 5.76 cm Med E` Campos 4.98 cm/sec [ 8.00 - 15.00 ] LA Volume BP 64.00 ml Lat E` Campos 9.00 cm/sec [ 10.00 - 15.00 ] LA Volume Index 40.00 ml/m2 [ 16.00 - 34.00 ] MR Peak Campos 0.05 m/s MV Annulus 2D 2.70 cm MR Peak PG 0.01 RV Base Dimen 2D 4.9 cm [ 2.5 - 4.2 ] MR VTI 137.8 cm TAPSE 1.18 cm [ 1.71 - 5.00 ] RV S` 0.10 cm/sec RA Volume 79.15 ml TR Peak Campos 0.03 m/s [ 1.00 - 2.80 ] RA Volume Index 49.47 ml/m2 TR Peak PG 0.0 IVC Diam 2.44 cm PV Peak Campos 0.72 m/s [ 0.40 - 0.80 ] AoR Diam 2D 3.17 cm [ 2.70 - 3.70 ] PV Peak PG 2.07 Ao Root Index 1.98 cm/m2 [ 1.00 - 2.00 ] PI Peak Campos 0.02 m/s Asc Ao Diam 2D 3.25 cm PI Peak PG 17.36 mmHg Asc Ao Index 2.03 cm/m2 PI PHT 324.10 sec - COMPARISONS: There was no previous study available for comparison. ATTESTATION: I have reviewed and interpreted the pertinent images and measurements of this study. I attest to the conclusions in the final report that is provided above. DISCLAIMER: The study images and the final report will be retained in the patient chart by the Echo Laboratory for the legally required time period. This chart constitutes the legal record of any testing performed. Electronically Signed By: Rony Arroyo MD 05/29/2024 3:43:24 PM CLERICAL STOCK INSPECTOR Electronically Signed By: Jorge Zavaleta MD 05/29/2024 5:32:47 PM CLERICAL STOCK INSPECTOR Procedure Note Jorge Zavaleta MD - 05/29/2024 [facility] Cardiac [place] [address] [place] [address] Transthoracic Echocardiographic Report Patient Name: RAFA FIELDS : 1940 (84y ) Gender: F Study Date: 05/29/2024 12:55:15 PM Ht(Inch): 59 Wt(Lb): 134.92 BSA: 1.6 Nurse Prn: Cony Solomon [facility] Location: [id number] Order Provider:MARK CLAYTON Heart Rate: 79 BMI: 27.25 BP: 133/90 Quality: The study images were oftechnically good quality. Ref Provider: MARK CLAYTON PROCEDURES: Echocardiographic Report: ([id number]) Transthoracic complete echo withstrain imaging, 2D, spectral and tissue Doppler, color flow Doppler, M-mode. Contrast: Unable to obtain IV access. INDICATIONS: New dx Afib, evaulate valves. FINDINGS: Left Ventricle: Mildly dilated left ventricle based on volume index.Normal LV wall thickness. Normal left ventricular systolic function. The EjectionFraction (Costa's) is measured at 55 %. The average global longitudinal strain rate isabnormal. The LV global strain is: -11.6 %. Right Ventricle: Right ventricular dilatation. Moderate right ventricularhypokinesis. Left Atrium: Mildly dilated left atrium. Right Atrium: Right atrial dilatation. Atrial Septum: The interatrial septum is normal in appearance. Mitral Valve: There is mild mitral valve regurgitation. No stenosispresent. MV Structure Abnormalities: Mitral valve leaflets appear mildly thickened. Aortic Valve: Trileaflet aortic valve. The aortic cusps appear mildlythickened. Mild aortic valve regurgitation. No aortic valve stenosis. Tricuspid Valve: The tricuspid valve demonstrates normal leafletstructure. There is moderate tricuspid regurgitation. The estimated pulmonary artery systolicpressure is 45 mmHg. Pulmonic Valve: The pulmonic valve demonstrates normal leaflet structure.There is moderate pulmonic regurgitation. Pericardium: Normal pericardium without evidence of pericardial effusion.No pericardial effusion. Aorta: The aortic root is normal in size. The aortic root is normal insize when indexed. There is dilation of the ascending aorta when indexed. IVC: The IVC (inferior vena cava) was >2.1 cm and collapsibility <50%. Rhythm: The rhythm during the study was atrial fibrillation. CONCLUSIONS: 1. The rhythm during the study was atrial fibrillation. 2. Mildly dilated left ventricle based on volume index. Normal LV wallthickness. Normal left ventricular systolic function. The Ejection Fraction (Costa's) ismeasured at 55 %. The average global longitudinal strain rate is abnormal. 3. Right ventricular dilatation. Moderate right ventricular hypokinesis. 4. Mildly dilated left atrium. 5. There is mild mitral valve regurgitation. Mitral valve leaflets appearmildly thickened. 6. The aortic cusps appear mildly thickened. Mild aortic valveregurgitation. No aortic valve stenosis. 7. There is moderate tricuspid regurgitation. The estimated pulmonaryartery systolic pressure is 45 mmHg. 8. The pulmonic valve demonstrates normal leaflet structure. There ismoderate pulmonic regurgitation. MEASUREMENTS: 2D/MM Value Range DopplerValue Range LVIDd 2D 4.76 cm [ 3.80 - 5.20 ] AV Peak Vel1.49 m/s [ 1.00 - 1.70 ] LVIDs 2D 3.27 cm [ 2.20 - 3.50 ] AV Peak PG8.88 IVSd 2D 0.89 cm [ 0.60 - 0.90 ] AV Mean PG4.64 mmHg LVPWd 2D 0.82 cm [ 0.60 - 0.90 ] AV VTI26.32 cm LV Thickness Ratio 1.09 LVOT Peak Vel1.11 m/s [ 0.70 - 1.10 ] LV FS 2D 31.28 % [ 27.00 - 45.00 ] LVOT Peak PG4.93 LV Mass 2D 139.66 g LVOT Mean PG2.56 mmHg LV Mass Index 2D 87.29 g/m2 LVOT VTI18.55 cm RWT 0.34 LVOT Diam1.97 cm EDV Mod BP 108.55 ml [ 46.00 - 106.00 ] JOANNA VTI2.15 cm2 LV EDV Index 67.84 ml/m2 LVOT/AV VTI0.70 - Dimensionless index (DVI) ESV Mod BP 48.91 ml [ 14.00 - 42.00 ] MV Peak Vel0.58 m/s EF Mod BP 55 % [ 54 - 74 ] MV Peak PG1.35 LV GLS -11.6 % [ -18.0 - -16.0 ] MV Mean PG0.38 mmHg LA Length 2C 5.36 cm MV VTI9.49 cm LA Length 4C 5.76 cm Med E` Vel4.98 cm/sec [ 8.00 - 15.00 ] LA Volume BP 64.00 ml Lat E` Vel9.00 cm/sec [ 10.00 - 15.00 ] LA Volume Index 40.00 ml/m2 [ 16.00 - 34.00 ] MR Peak Vel0.05 m/s MV Annulus 2D 2.70 cm MR Peak PG0.01 RV Base Dimen 2D 4.9 cm [ 2.5 - 4.2 ] MR LLO680.8 cm TAPSE 1.18 cm [ 1.71 - 5.00 ] RV S`0.10 cm/sec RA Volume 79.15 ml TR Peak Vel0.03 m/s [ 1.00 - 2.80 ] RA Volume Index 49.47 ml/m2 TR Peak PG0.0 IVC Diam 2.44 cm PV Peak Vel0.72 m/s [ 0.40 - 0.80 ] AoR Diam 2D 3.17 cm [ 2.70 - 3.70 ] PV Peak PG2.07 Ao Root Index 1.98 cm/m2 [ 1.00 - 2.00 ] PI Peak Vel0.02 m/s Asc Ao Diam 2D 3.25 cm PI Peak PG17.36 mmHg Asc Ao Index 2.03 cm/m2 PI GAI190.10 sec - COMPARISONS: There was no previous study available for comparison. ATTESTATION: I have reviewed and interpreted the pertinent images and measurements ofthis study. I attest to the conclusions in the final report that is provided above. DISCLAIMER: The study images and the final report will be retained in the patientchart by the [facility] for the legally required time period. This chart constitutesthe legal record of any testing performed. Electronically Signed By: Rony Arroyo MD 05/29/2024 3:43:24 PM CLERICAL STOCK INSPECTOR Electronically Signed By: Jorge Zavaleta MD 05/29/2024 5:32:47 PM CLERICAL STOCK INSPECTOR us Mark Clayton MD CV ECHO PROCEDURES Final Result * eGFR (05/29/2024 12:08 AM CLERICAL STOCK INSPECTOR) eGFR 74 >=60 mL/min/1. 73 m2 Comment: Interpretive Data Reference Interval Normal >/= 90 mL/min/1.73m2 Mildly decreased* 60 - 89 mL/min/1.73m2 Mildly to moderately decreased 45 - 59 mL/min/1.73m2 Moderately to severely decreased 30 - 44 mL/min/1.73m2 Severely decreased 15 - 29 mL/min/1.73m2 Kidney Failure < 15 mL/min/1.73m2 *Relative to young adult level Estimated glomerular filtration rate is determined by the 2020 CKD-EPI equation recommended by the National Kidney Foundation (A Unifying Approach to GFR Estimation: Recommendations of the NKF-ASK Task Force on Reassessing the Inclusion of Race in Diagnosing Kidney Disease, JASN 202). The CKD-EPI equation should not be used for patients with unstable renal function and has not been validated in children and those over 70. Current interpretive data was last reviewed 2021. Blood 05/29/2024 12:0 8 AM CLERICAL STOCK INSPECTOR 05/29/2024 12:51 AM CLERICAL STOCK INSPECTOR us Mark Clatyon MD LAB BLOOD ORDERABLES Abbi vesna Result [facility] Department [place] [address] * Differential, auto (05/29/2024 12:08 AM CLERICAL STOCK INSPECTOR) Neutrophil abs 5.3 1.5 - 6.5 K/cumm Imm gran abs 0.0 0.0 - 0.1 K/cumm [facility] Lymphocyte abs 2.0 0.8 - 3.3 K/cumm [facility] Monocyte abs 0.5 0.2 - 0.8 K/cumm [facility] Eosinophil abs 0.1 0.0 - 0.5 K/cumm [facility] Basophil abs 0.0 0.0 - 0.1 K/cumm [facility] Neutrophil pct 65.9 % [facility] Comment: Interpretive Data Percent cell count reference ranges are not reported, since discordance with absolute values may lead to misinterpretation of CBC data. Current Interpretive Data was last revised on 2017. Imm gran pct 0.4 % [facility] Comment: Interpretive Data Percent cell count reference ranges are not reported, since discordance with absolute values may lead to misinterpretation of CBC data. Current Interpretive Data was last revised on 2017. Lymphocyte pct 25.3 % [facility] Comment: Interpretive Data Percent cell count reference ranges are not reported, since discordance with absolute values may lead to misinterpretation of CBC data. Current Interpretive Data was last revised on 2017. Monocyte pct 6.4 % [facility] Comment: Interpretive Data Percent cell count reference ranges are not reported, since discordance with absolute values may lead to misinterpretation of CBC data. Current Interpretive Data was last revised on 2017. Eosinophil pct 1.5 % [facility] Comment: Interpretive Data Percent cell count reference ranges are not reported, since discordance with absolute values may lead to misinterpretation of CBC data. Current Interpretive Data was last revised on 2017. Basophil pct 0.5 % [facility] Comment: Interpretive Data Percent cell count reference ranges are not reported, since discordance with absolute values may lead to misinterpretation of CBC data. Current Interpretive Data was last revised on 2017. Blood 05/29/2024 12:0 8 AM CLERICAL STOCK INSPECTOR 05/29/2024 12:51 AM CLERICAL STOCK INSPECTOR us Mark Clayton MD LAB BLOOD ORDERABLES Abbi l Result Performing Organization Address City/[facility] Co de Phone Number [facility] Department [place] [address] * (ABNORMAL) CBC with auto differential (05/29/2024 12:08 AM CLERICAL STOCK INSPECTOR) WBC 8.0 3.8 - 9.9 K/cumm Hgb 13.9 11.9 - 15.5 g/dL [facility] Hct 41.4 35.6 - 45.5 % [facility] Plt 246 150 - 400 K/cumm [facility] MPV 10.5 9.1 - 12.3 fL [facility] RBC 5.11 3.90 - 5.20 M/cumm [facility] MCV 81.0(L) 81.3 - 96.4 fL [facility] MCH 27.2 27.1 - 33.3 pg [facility] MCHC 33.6 32.3 - 35.7 g/dL [facility] RDW CV 13.8 11.1 - 14.9 % [facility] RDW SD 40.7 35.7 - 48.1 fL [facility] NRBC abs 0.00 0.00 - 0.01 K/cumm [facility] Blood 05/29/2024 12:0 8 AM CLERICAL STOCK INSPECTOR 05/29/2024 12:51 AM CLERICAL STOCK INSPECTOR Mark Clayton MD LAB BLOOD ORDERABLES Abbi l Result Performing Organization Address City/State/[facility] Co de Phone Number [facility] [place] [place] [address] * Magnesium (05/29/2024 12:08 AM CLERICAL STOCK INSPECTOR) [facility] Magnesium 1.9 1.4 - 2.5 mg/dL Blood 05/29/2024 12:0 8 AM CLERICAL STOCK INSPECTOR 05/29/2024 12:51 AM CLERICAL STOCK INSPECTOR Mark Clayton MD LAB BLOOD ORDERABLES Abbi l Result Performing Organization Address [facility] Co de Phone Number [facility] [place] [address] * Hepatic function panel (05/29/2024 12:08 AM CLERICAL STOCK INSPECTOR) [facility] Bilirubin, total 0.5 0.1 - 1.2 mg/dL Bilirubin, direct 0.2 0.1 - 0.3 mg/dL [facility] Protein, pl 7.7 6.5 - 8.5 g/dL [facility] Albumin 3.7 3.5 - 5.0 g/dL [facility] Alk phos 129 40 - 130 Units/L [facility] ALT 34 7 - 45 Units/L [facility] AST 42 10 - 45 Units/L [facility] Blood 05/29/2024 12:0 8 AM CLERICAL STOCK INSPECTOR 05/29/2024 12:51 AM CLERICAL STOCK INSPECTOR Mark Clayton MD LAB BLOOD ORDERABLES Abbi l Result Performing Organization Address City/[facility]/ZIP Co de Phone Number [facility] [place] [address] * Basic metabolic panel (05/29/2024 12:08 AM CLERICAL STOCK INSPECTOR) Pathologist [facility] Sodium 141 135 - 145 mmol/L Potassium, pl 4.1 3.3 - 4.9 mmol/L [facility] Chloride 101 97 - 110 mmol/L [facility] CO2 30 22 - 32 mmol/L [facility] Anion gap 10 2 - 15 mmol/L [facility] BUN 9 6 - 25 mg/dL [facility] Creatinine 0.80 0.60 - 1.10 mg/dL [facility] Glucose 107 70 - 199 mg/dL [facility] Comment: Interpretive Data Fasting glucose >/= 126 mg/dl is diagnostic for diabetes. Fasting is defined as no caloric intake for at least 8 hours. Fasting glucose between 100 mg/dl to 125 mg/dl is diagnostic of prediabetes. In a patient with classic symptoms of hyperglycemia or hyperglycemic crisis, a random glucose >/= 200 mg/dl is diagnostic for diabetes. In the absence of unequivocal hyperglycemia, results should be confirmed by repeat testing. The classification and Diagnosis of Diabetes Diabetes Care 202; 46: S19-S40. Current interpretive data was last revised 2022. Calcium 9.8 8.5 - 10.3 mg/dL [facility] Blood 05/29/2024 12:0 8 AM CLERICAL STOCK INSPECTOR 05/29/2024 12:51 AM CLERICAL STOCK INSPECTOR us Mark Clayton MD LAB BLOOD ORDERABLES Abbi malagon Result [facility] Department [place] [address] * (ABNORMAL) TSH receptor antibody (05/27/2024 8:59 PM CLERICAL STOCK INSPECTOR) TSH receptor ab 8.08(H) 0.00 - 1.75 IUnits/L [facility] Comment: ADDITIONAL INFORMATION At a decision limit of 1.75 IU/L, this assay has 97% sensitivity and 99% specificity for detection of Graves' disease. In healthy individuals and in patients with thyroid disease without diagnosis of Graves' disease, the upper limit of anti-TSHR values are 1.22 IU/L and 1.58 IU/L, respectively (97.5th percentiles). Test Performed by: [facility] [address] [place] [address] Lna: Martínez Andre Ph.D.; CLIA# [id number] Blood 05/27/2024 8:59 PM CLERICAL STOCK INSPECTOR 05/28/2024 5:20 PM CLERICAL STOCK INSPECTOR Mark Clayton MD LAB BLOOD ORDERABLES Abbi l Result Performing Organization Address City/[facility] Co de Phone Number [facility] [place] [place] [address] [facility] * eGFR (05/27/2024 8:58 PM CLERICAL STOCK INSPECTOR) eGFR >90 >=60 mL/min/1. 73 m2 Comment: Interpretive Data Reference Interval Normal >/= 90 mL/min/1.73m2 Mildly decreased* 60 - 89 mL/min/1.73m2 Mildly to moderately decreased 45 - 59 mL/min/1.73m2 Moderately to severely decreased 30 - 44 mL/min/1.73m2 Severely decreased 15 - 29 mL/min/1.73m2 Kidney Failure < 15 mL/min/1.73m2 *Relative to young adult level Estimated glomerular filtration rate is determined by the 2020 CKD-EPI equation recommended by the National Kidney Foundation (A Unifying Approach to GFR Estimation: Recommendations of the NKF-ASK Task Force on Reassessing the Inclusion of Race in Diagnosing Kidney Disease, JASN 2020). The CKD-EPI equation should not be used for patients with unstable renal function and has not been validated in children and those over 70. Current interpretive data was last reviewed 2021. Blood 05/27/2024 8:58 PM CLERICAL STOCK INSPECTOR 05/27/2024 9:49 PM CLERICAL STOCK INSPECTOR us Mark Clayton MD LAB BLOOD ORDERABLES Abbi l Result [facility] [place] [place] [address] * Differential, auto (05/27/2024 8:58 PM CLERICAL STOCK INSPECTOR) Pathologist [facility] Neutrophil abs 2.6 1.5 - 6.5 K/cumm Imm gran abs 0.0 0.0 - 0.1 K/cumm [facility] Lymphocyte abs 2.0 0.8 - 3.3 K/cumm [facility] Monocyte abs 0.5 0.2 - 0.8 K/cumm [facility] Eosinophil abs 0.2 0.0 - 0.5 K/cumm [facility] Basophil abs 0.1 0.0 - 0.1 K/cumm [facility] Neutrophil pct 49.1 % [facility] Comment: Interpretive Data Percent cell count reference ranges are not reported, since discordance with absolute values may lead to misinterpretation of CBC data. Current Interpretive Data was last revised on 2017. Imm gran pct 0.4 % [facility] Comment: Interpretive Data Percent cell count reference ranges are not reported, since discordance with absolute values may lead to misinterpretation of CBC data. Current Interpretive Data was last revised on 2017. Lymphocyte pct 37.8 % [facility] Comment: Interpretive Data Percent cell count reference ranges are not reported, since discordance with absolute values may lead to misinterpretation of CBC data. Current Interpretive Data was last revised on 2017. Monocyte pct 8.6 % [facility] Comment: Interpretive Data Percent cell count reference ranges are not reported, since discordance with absolute values may lead to misinterpretation of CBC data. Current Interpretive Data was last revised on 2017. Eosinophil pct 3.1 % [facility] Comment: Interpretive Data Percent cell count reference ranges are not reported, since discordance with absolute values may lead to misinterpretation of CBC data. Current Interpretive Data was last revised on 2017. Basophil pct 1.0 % [facility] Comment: Interpretive Data Percent cell count reference ranges are not reported, since discordance with absolute values may lead to misinterpretation of CBC data. Current Interpretive Data was last revised on 2017. Blood 05/27/2024 8:58 PM CLERICAL STOCK INSPECTOR 05/27/2024 9:50 PM CLERICAL STOCK INSPECTOR Mark Clayton MD LAB BLOOD ORDERABLES Abbi l Result Performing Organization Address [facility] Co de Phone Number [facility] Department [place] [address] * (ABNORMAL) CBC with auto differential (05/27/2024 8:58 PM CLERICAL STOCK INSPECTOR) [facility] WBC 5.2 3.8 - 9.9 K/cumm Hgb 13.2 11.9 - 15.5 g/dL [facility] Hct 38.7 35.6 - 45.5 % [facility] Plt 241 150 - 400 K/cumm [facility] MPV 10.7 9.1 - 12.3 fL [facility] RBC 4.85 3.90 - 5.20 M/cumm [facility] MCV 79.8(L) 81.3 - 96.4 fL [facility] MCH 27.2 27.1 - 33.3 pg [facility] MCHC 34.1 32.3 - 35.7 g/dL [facility] RDW CV 14.0 11.1 - 14.9 % [facility] RDW SD 40.8 35.7 - 48.1 fL [facility] NRBC abs 0.00 0.00 - 0.01 K/cumm [facility] Blood 05/27/2024 8:58 PM CLERICAL STOCK INSPECTOR 05/27/2024 9:50 PM CLERICAL STOCK INSPECTOR Mark Clayton MD LAB BLOOD ORDERABLES Abbi l Result Performing Organization Address [facility] Co de Phone Number [facility] Department [place] [address] * (ABNORMAL) Thyroid peroxidase antibody (TPO) (05/27/2024 8:58 PM CLERICAL STOCK INSPECTOR) [facility] Anti Thyroid Peroxidase 105(H) <=34 IUnits/mL Comment: ATPO Interpretive Data Results may be up to 28% higher in patients receiving Itraconazole. Current interpretive data was last revised 2020. Blood 05/27/2024 8:58 PM CLERICAL STOCK INSPECTOR 05/27/2024 9:49 PM CLERICAL STOCK INSPECTOR us Mark Clayton MD LAB BLOOD ORDERABLES Abbi l Result Performing Organization Address City/[facility]/ZIP Co de Phone Number [facility] [place] [address] * (ABNORMAL) Thyroid stimulating immunoglobulin (05/27/2024 8:58 PM CLERICAL STOCK INSPECTOR) [facility] TSIG 2.5(H) <=1.3 [place] [facility] Lab Comment: Test Performed by: [facility] [address] [place] [address] Lna: Martínez Andre Ph.D.; CLIA# [id number] Blood 05/27/2024 8:58 PM CLERICAL STOCK INSPECTOR 05/28/2024 4:58 PM CLERICAL STOCK INSPECTOR us Mark Clayton MD LAB BLOOD ORDERABLES Abbi l Result Performing Organization Address [facility] Co de Phone Number [facility] [place] [address] [place] ref [facility] * Magnesium (05/27/2024 8:58 PM CLERICAL STOCK INSPECTOR) [facility] Magnesium 1.7 1.4 - 2.5 mg/dL Blood 05/27/2024 8:58 PM CLERICAL STOCK INSPECTOR 05/27/2024 9:49 PM CLERICAL STOCK INSPECTOR us Mark Clayton MD LAB BLOOD ORDERABLES Abbi l Result [facility] [place] [address] * (ABNORMAL) Basic metabolic panel (05/27/2024 8:58 PM CLERICAL STOCK INSPECTOR) [facility] Sodium 142 135 - 145 mmol/L Potassium, pl 3.9 3.3 - 4.9 mmol/L [facility] Chloride 104 97 - 110 mmol/L [facility] CO2 28 22 - 32 mmol/L [facility] Anion gap 10 2 - 15 mmol/L [facility] BUN 9 6 - 25 mg/dL [facility] Creatinine 0.56(L) 0.60 - 1.10 mg/dL [facility] Glucose 152 70 - 199 mg/dL [facility] Comment: Interpretive Data Fasting glucose >/= 126 mg/dl is diagnostic for diabetes. Fasting is defined as no caloric intake for at least 8 hours. Fasting glucose between 100 mg/dl to 125 mg/dl is diagnostic of prediabetes. In a patient with classic symptoms of hyperglycemia or hyperglycemic crisis, a random glucose >/= 200 mg/dl is diagnostic for diabetes. In the absence of unequivocal hyperglycemia, results should be confirmed by repeat testing. The classification and Diagnosis of Diabetes Diabetes Care 2021; 46: S19-S40. Current interpretive data was last revised 2022. Calcium 9.4 8.5 - 10.3 mg/dL [facility] Blood 05/27/2024 8:58 PM CLERICAL STOCK INSPECTOR 05/27/2024 9:49 PM CLERICAL STOCK INSPECTOR us Mark Clayton MD LAB BLOOD ORDERABLES Abbi malagon Result [facility] Department [place] [address] * eGFR (05/27/2024 5:05 AM CLERICAL STOCK INSPECTOR) eGFR 88 >=60 mL/min/1. 73 m2 Comment: Interpretive Data Reference Interval Normal >/= 90 mL/min/1.73m2 Mildly decreased* 60 - 89 mL/min/1.73m2 Mildly to moderately decreased 45 - 59 mL/min/1.73m2 Moderately to severely decreased 30 - 44 mL/min/1.73m2 Severely decreased 15 - 29 mL/min/1.73m2 Kidney Failure < 15 mL/min/1.73m2 *Relative to young adult level Estimated glomerular filtration rate is determined by the 2020 CKD-EPI equation recommended by the National Kidney Foundation (A Unifying Approach to GFR Estimation: Recommendations of the NKF-ASK Task Force on Reassessing the Inclusion of Race in Diagnosing Kidney Disease, JASN 2020). The CKD-EPI equation should not be used for patients with unstable renal function and has not been validated in children and those over 70. Current interpretive data was last reviewed 2021. Blood 05/27/2024 5:05 AM CLERICAL STOCK INSPECTOR 05/27/2024 5:56 AM CLERICAL STOCK INSPECTOR us Claribel SHARMA LAB BLOOD ORDERABL ES Final Result Performing Organization Address City/[facility]/ZIP Co de Phone Number [facility] of Laboratories [place], [place] [id number] * (ABNORMAL) Thyroid Function [place] (05/27/2024 5:05 AM CLERICAL STOCK INSPECTOR) TSH <0.01(L) 0.30 - 4.20 mcIUnit/mL Blood 05/27/2024 5:05 AM CLERICAL STOCK INSPECTOR 05/27/2024 5:56 AM CLERICAL STOCK INSPECTOR us Mark Clayton MD LAB BLOOD ORDERABLES Abbi l Result Performing Organization Address City/[facility] Co de Phone Number [facility] [place] [place] [address] * (ABNORMAL) CBC without differential (05/27/2024 5:05 AM CLERICAL STOCK INSPECTOR) WBC 4.5 3.8 - 9.9 K/cumm Hgb 12.4 11.9 - 15.5 g/dL [facility] Hct 36.6 35.6 - 45.5 % [facility] Plt 232 150 - 400 K/cumm [facility] MPV 10.4 9.1 - 12.3 fL [facility] RBC 4.55 3.90 - 5.20 M/cumm [facility] MCV 80.4(L) 81.3 - 96.4 fL [facility] MCH 27.3 27.1 - 33.3 pg [facility] MCHC 33.9 32.3 - 35.7 g/dL [facility] RDW CV 14.0 11.1 - 14.9 % [facility] RDW SD 40.8 35.7 - 48.1 fL [facility] NRBC abs 0.00 0.00 - 0.01 K/cumm [facility] Blood 05/27/2024 5:05 AM CLERICAL STOCK INSPECTOR 05/27/2024 5:56 AM CLERICAL STOCK INSPECTOR us Claribel SHARMA LAB BLOOD ORDERABL ES Final Result Performing Organization Address [facility] Co de Phone Number [facility] [place] [address] * (ABNORMAL) T3, free (05/27/2024 5:05 AM CLERICAL STOCK INSPECTOR) Free T3 6.2(H) 2.0 - 4.4 pg/mL Blood 05/27/2024 5:05 AM CLERICAL STOCK INSPECTOR 05/27/2024 5:56 AM CLERICAL STOCK INSPECTOR us Mark Clayton MD LAB BLOOD ORDERABLES Abbi l Result Performing Organization Address [facility] de Phone Number [facility] [place] [address] * (ABNORMAL) T4, free (05/27/2024 5:05 AM CLERICAL STOCK INSPECTOR) Free T4 2.83(H) 0.90 - 1.70 ng/dL Blood 05/27/2024 5:05 AM CLERICAL STOCK INSPECTOR 05/27/2024 5:56 AM CLERICAL STOCK INSPECTOR Narrative [facility] - 05/27/2024 9:51 AM CLERICAL STOCK INSPECTOR This test was reflexed from a TSH result. us Mark Clayton MD LAB BLOOD ORDERABLES Edit ed Result - Final Performing Organization Address [facility] Co de Phone Number [facility] [place] [place] [address] * Magnesium (05/27/2024 5:05 AM CLERICAL STOCK INSPECTOR) Magnesium 1.8 1.4 - 2.5 mg/dL Blood 05/27/2024 5:05 AM CLERICAL STOCK INSPECTOR 05/27/2024 5:56 AM CLERICAL STOCK INSPECTOR us Mark Clayton MD LAB BLOOD ORDERABLES Abbi l Result [facility] Department [place] [address] * (ABNORMAL) Renal function panel (05/27/2024 5:05 AM CLERICAL STOCK INSPECTOR) Sodium 144 135 - 145 mmol/L Potassium, pl 3.8 3.3 - 4.9 mmol/L [facility] Chloride 108 97 - 110 mmol/L [facility] CO2 29 22 - 32 mmol/L [facility] Anion gap 7 2 - 15 mmol/L [facility] BUN 7 6 - 25 mg/dL [facility] Creatinine 0.65 0.60 - 1.10 mg/dL [facility] Glucose 119 70 - 199 mg/dL [facility] Comment: Interpretive Data Fasting glucose >/= 126 mg/dl is diagnostic for diabetes. Fasting is defined as no caloric intake for at least 8 hours. Fasting glucose between 100 mg/dl to 125 mg/dl is diagnostic of prediabetes. In a patient with classic symptoms of hyperglycemia or hyperglycemic crisis, a random glucose >/= 200 mg/dl is diagnostic for diabetes. In the absence of unequivocal hyperglycemia, results should be confirmed by repeat testing. The classification and Diagnosis of Diabetes Diabetes Care 2021; 46: S19-S40. Current interpretive data was last revised 2022. Calcium 9.6 8.5 - 10.3 mg/dL [facility] Phosphorus, pl 3.3 2.3 - 4.5 mg/dL [facility] Albumin 3.1(L) 3.5 - 5.0 g/dL [facility] Blood 05/27/2024 5:05 AM CLERICAL STOCK INSPECTOR 05/27/2024 5:56 AM CLERICAL STOCK INSPECTOR us Claribel SHARMA LAB BLOOD ORDERABL ES Final Result [facility] [place] [address] * XR Orthopantogram Panorex (05/26/2024 5:44 PM CLERICAL STOCK INSPECTOR) Anatomical Region Laterality Modality Head and Neck N/A Panoramic X-Ray 05/26/2024 6:49 PM CLERICAL STOCK INSPECTOR Impressions 05/26/2024 6:49 PM CLERICAL STOCK INSPECTOR 1. Periapical lucencies involving the 2 left most maxillary teeth and the right most maxillary tooth. Electronically signed by: Nathan Barrow D.O. Narrative 05/26/2024 6:49 PM CLERICAL STOCK INSPECTOR EXAMINATION: XR ORTHOPANTOGRAM/PANOREX HISTORY: dental pain/ abscess COMPARISON: None FINDINGS: Multiple dental restorations are noted and multiple teeth are missing. Periapical lucencies involving the 2 leftmost maxillary teeth and the right most maxillary tooth. No acute fractures. Procedure Note Nathan Barrow, - 05/26/2024 EXAMINATION: XR ORTHOPANTOGRAM/PANOREX HISTORY: dental pain/ abscess COMPARISON: None FINDINGS: Multiple dental restorations are noted and multiple teeth are missing. Periapical lucencies involving the 2 leftmost maxillary teeth and the right most maxillary tooth. No acute fractures. IMPRESSION: 1. Periapical lucencies involving the 2 left most maxillary teeth and the right most maxillary tooth. Electronically signed by: Nathan Barrow D.O. us Claribel SHARMA IMG XR PROCEDURES Final Result * eGFR (05/26/2024 11:50 AM CLERICAL STOCK INSPECTOR) eGFR >90 >=60 mL/min/1. 73 m2 Comment: Interpretive Data Reference Interval Normal >/= 90 mL/min/1.73m2 Mildly decreased* 60 - 89 mL/min/1.73m2 Mildly to moderately decreased 45 - 59 mL/min/1.73m2 Moderately to severely decreased 30 - 44 mL/min/1.73m2 Severely decreased 15 - 29 mL/min/1.73m2 Kidney Failure < 15 mL/min/1.73m2 *Relative to young adult level Estimated glomerular filtration rate is determined by the 2020 CKD-EPI equation recommended by the National Kidney Foundation (A Unifying Approach to GFR Estimation: Recommendations of the NKF-ASK Task Force on Reassessing the Inclusion of Race in Diagnosing Kidney Disease, JASN 2020). The CKD-EPI equation should not be used for patients with unstable renal function and has not been validated in children and those over 70. Current interpretive data was last reviewed 2021. Blood 05/26/2024 11:5 0 AM CLERICAL STOCK INSPECTOR 05/26/2024 12:05 PM CLERICAL STOCK INSPECTOR Claribel SHARMA LAB BLOOD ORDERABL ES Final Result Performing Organization Address [facility] Co de Phone Number [facility] Department [place] [employer] [place] [address] * aPTT (05/26/2024 11:50 AM CLERICAL STOCK INSPECTOR) [facility] Signature aPTT 28 28 - 38 sec Comment: Interpretive Data Heparin therapeutic range: 66.0 - 100.0 seconds. Range based on correlation with therapeutic heparin activity range of 0.3 - 0.7 Units/mL. Current interpretive data was last revised on 2023. Blood 05/26/2024 11:5 0 AM CLERICAL STOCK INSPECTOR 05/26/2024 11:57 AM CLERICAL STOCK INSPECTOR Narrative [facility] - 05/26/2024 12:27 PM CLERICAL STOCK INSPECTOR Baseline prior to enoxaparin initiation. Claribel SHARMA LAB BLOOD ORDERABL ES Final Result Performing Organization Address City/[facility]/ZIP Co de Phone Number [facility] [place] [address] * (ABNORMAL) Protime-INR (05/26/2024 11:50 AM CLERICAL STOCK INSPECTOR) Pathologist [facility] PT 15.8(H) 9.7 - 13.0 sec INR 1.45(H) 0.90 - 1.20 [facility] Comment: Interpretive data Oral anticoagulant therapeutic ranges: Venous thromboembolism prophylaxis or treatment: 2.0-3.0 CARDIOLOGY Standard range: 2.0-3.0 High-intensity range: 2.5-3.5 Refer to indication-specific guidelines for appropriate target ranges for prosthetic heart valve replacement. Current interpretive data was last revised on 2019. Blood 05/26/2024 11:5 0 AM CLERICAL STOCK INSPECTOR 05/26/2024 11:57 AM CLERICAL STOCK INSPECTOR Narrative [facility] - 05/26/2024 12:27 PM CLERICAL STOCK INSPECTOR Baseline prior to enoxaparin initiation. us Claribel SHARMA LAB BLOOD ORDERABL ES Final Result [facility] Department [place] [address] * (ABNORMAL) CBC without differential (05/26/2024 11:50 AM CLERICAL STOCK INSPECTOR) [facility] WBC 4.5 3.8 - 9.9 K/cumm Hgb 13.1 11.9 - 15.5 g/dL [facility] Hct 38.3 35.6 - 45.5 % [facility] Plt 248 150 - 400 K/cumm [facility] MPV 10.5 9.1 - 12.3 fL [facility] RBC 4.84 3.90 - 5.20 M/cumm [facility] MCV 79.1(L) 81.3 - 96.4 fL [facility] MCH 27.1 27.1 - 33.3 pg [facility] MCHC 34.2 32.3 - 35.7 g/dL [facility] RDW CV 14.1 11.1 - 14.9 % [facility] RDW SD 40.5 35.7 - 48.1 fL [facility] NRBC abs 0.00 0.00 - 0.01 K/cumm [facility] Blood 05/26/2024 11:5 0 AM CLERICAL STOCK INSPECTOR 05/26/2024 12:05 PM CLERICAL STOCK INSPECTOR Narrative [facility] - 05/26/2024 12:12 PM CLERICAL STOCK INSPECTOR Baseline prior to enoxaparin initiation. us Claribel SHARMA LAB BLOOD ORDERABL ES Final Result Performing Organization Address City/[facility]/ZIP Co de Phone Number [facility] [place] [address] * (ABNORMAL) Creatinine (05/26/2024 11:50 AM CLERICAL STOCK INSPECTOR) Creatinine 0.57(L) 0.60 - 1.10 mg/dL Blood 05/26/2024 11:5 0 AM CLERICAL STOCK INSPECTOR 05/26/2024 12:05 PM CLERICAL STOCK INSPECTOR Narrative [facility] - 05/26/2024 12:35 PM CLERICAL STOCK INSPECTOR Baseline prior to enoxaparin initiation. us Claribel SHARMA LAB BLOOD ORDERABL ES Final Result Performing Organization Address City/[facility] Co de Phone Number [facility] [place] [address] * Check Sample (05/26/2024 8:40 AM CLERICAL STOCK INSPECTOR) ABO Rh A Positive [facility] HCLL OTHER 05/26/2024 8:40 AM CLERICAL STOCK INSPECTOR 05/26/2024 8:56 AM CLERICAL STOCK INSPECTOR us Audra Espinoza MD LAB BLOOD ORDERABLES Final Result Performing Organization Address City/[facility]/ZIP Co de Phone Number [facility] [place] [address] [facility] * (ABNORMAL) aPTT (05/26/2024 8:09 AM CLERICAL STOCK INSPECTOR) aPTT 27(L) 28 - 38 sec Comment: Interpretive Data Heparin therapeutic range: 66.0 - 100.0 seconds. Range based on correlation with therapeutic heparin activity range of 0.3 - 0.7 Units/mL. Current interpretive data was last revised on 2023. Blood 05/26/2024 8:09 AM CLERICAL STOCK INSPECTOR 05/26/2024 8:18 AM CLERICAL STOCK INSPECTOR Audra Espinoza MD LAB BLOOD ORDERABLES Final Result Performing Organization Address City/[facility] Co de Phone Number [facility] Department [place] [address] * (ABNORMAL) Protime-INR (05/26/2024 8:09 AM CLERICAL STOCK INSPECTOR) PT 15.4(H) 9.7 - 13.0 sec INR 1.42(H) 0.90 - 1.20 [facility] Comment: Interpretive data Oral anticoagulant therapeutic ranges: Venous thromboembolism prophylaxis or treatment: 2.0-3.0 CARDIOLOGY Standard range: 2.0-3.0 High-intensity range: 2.5-3.5 Refer to indication-specific guidelines for appropriate target ranges for prosthetic heart valve replacement. Current interpretive data was last revised on 2019. Blood 05/26/2024 8:09 AM CLERICAL STOCK INSPECTOR 05/26/2024 8:18 AM CLERICAL STOCK INSPECTOR Audra Espinoza MD LAB BLOOD ORDERABLES Final Result Performing Organization Address [facility] Co de Phone Number [facility] Department [place] [address] * Type and screen (05/26/2024 8:09 AM CLERICAL STOCK INSPECTOR) Jennifer, indirect Negative ABO Rh A Positive [facility] Blood 05/26/2024 8:09 AM CLERICAL STOCK INSPECTOR 05/26/2024 8:19 AM CLERICAL STOCK INSPECTOR Narrative JCARLOS [facility] - 05/26/2024 9:03 AM CLERICAL STOCK INSPECTOR Has the patient had Daratumumab or Isatuximab in the past 6 months?->Unknown us Audra Espinoza MD LAB BLOOD BANK TEST ORDERAB LES Final Result Performing Organization Address City/[facility]/ZIP Co de Phone Number JCARLOS SANDHU [facility] Department [place] [address] * (ABNORMAL) ECG 12-LEAD (05/26/2024 7:31 AM CLERICAL STOCK INSPECTOR) Narrative [facility] - 05/26/2024 7:31 AM CLERICAL STOCK INSPECTOR Audra Espinoza MD 05/26/2024 7:32 AM ECG 12 lead Date/Time: 05/26/2024 7:31 AM Performed by: Audra Espinoza MD Authorized by: Kaley Lechuga MD Rate: ECG rate: 114 ECG rate assessment: tachycardic Rhythm: Rhythm: atrial fibrillation Ectopy: Ectopy: none QRS: QRS axis: Normal QRS intervals: Wide Conduction: Conduction: abnormal Abnormal conduction: complete RBBB ST segments: ST segments: Non-specific T waves: T waves: inverted Inverted: V1, V2, V3, III and V4 Previous ECG: Previous ECG: Unavailable Interpretation: Interpretation: abnormal Recommended Follow-up: Recommended follow up: further workup in the ED Procedure Note Audra Espinoza MD - 05/26/2024 7:31 AM CST Procedure ECG 12 lead Date/Time: 05/26/2024 7:31 AM Performed by: Audra Espinoza MD Authorized by: Kaley Lechuga MD Rate: ECG rate: 114 ECG rate assessment: tachycardic Rhythm: Rhythm: atrial fibrillation Ectopy: Ectopy: none QRS: QRS axis: Normal QRS intervals: Wide Conduction: Conduction: abnormal Abnormal conduction: complete RBBB ST segments: ST segments: Non-specific T waves: T waves: inverted Inverted: V1, V2, V3, III and V4 Previous ECG: Previous ECG: Unavailable Interpretation: Interpretation: abnormal Recommended Follow-up: Recommended follow up: further workup in the ED Audra Espinoza MD 05/26/24 0732 us Kaley Lechuga MD ECG ORDERABLES Final Res ult [facility] * Sepsis Lactate w/ Reflex (05/25/2024 11:18 PM CLERICAL STOCK INSPECTOR) Sepsis Lactate 0.9 0.7 - 2.0 mmol/L Blood 05/25/2024 11:1 8 PM CLERICAL STOCK INSPECTOR 05/25/2024 11:22 PM CLERICAL STOCK INSPECTOR Tash Fink MD LAB BLOOD ORDERABLES Abbi l Result [facility] ([facility]) [facility] [place] [address] * (ABNORMAL) Protime-INR (05/25/2024 11:18 PM CLERICAL STOCK INSPECTOR) PT 15.7(H) 9.7 - 13.0 sec JCARLOS RAMIREZ ([facility]) INR 1.44(H) 0.90 - 1.20 [facility] RAMIRE[facility] ([facility]) Comment: Interpretive data Oral anticoagulant therapeutic ranges: Venous thromboembolism prophylaxis or treatment: 2.0-3.0 CARDIOLOGY Standard range: 2.0-3.0 High-intensity range: 2.5-3.5 Refer to indication-specific guidelines for appropriate target ranges for prosthetic heart valve replacement. Current interpretive data was last revised on 2019. Blood 05/25/2024 11:1 8 PM CLERICAL STOCK INSPECTOR 05/25/2024 11:22 PM CLERICAL STOCK INSPECTOR Tash Fink MD LAB BLOOD ORDERABLES Abbi l Result [facility] ([facility]) [facility] [place] [address] * Blood culture Blood Peripheral (05/25/2024 10:52 PM CLERICAL STOCK INSPECTOR) Report Final Report: No growth Comment:Testing performed by : [facility], [address] [facility], [place]., [address] Blood (Peripheral) 05/25/2024 10:52 PM CLERICAL STOCK INSPECTOR 05/26/2024 2:42 AM CLERICAL STOCK INSPECTOR Narrative JCARLOS HOPPER) - 05/30/2024 7:01 AM CLERICAL STOCK INSPECTOR From a different site than #1. Draw Blood cultures before administration of Antibiotics Collection->Peripheral 1. Blood cultures are incubated for 4 days on a continuously monitored blood culture system. The first report of a negative culture is issued within 24 hours of receipt of the specimen in the laboratory. 2. Positive culture results are reported as soon as they are detected. 3. The most important factor for detection of microbes in the setting of bloodstream infection is the volume of blood submitted for culture. Failure to collect an optimal blood volume can result in false negative blood cultures. 4. For pediatric patients, the recommended blood volume to collect follows a weight based strategy. See the electronic test catalog for collection instructions. 5. For positive blood cultures, a rapid molecular test may be performed for organism identification using the tone ePlex blood culture identification panel for gram positive (BCID-GP) and gram negative (BCID-GN) organisms. This nucleic acid amplification test detects microbial DNA in positive blood culture broth. This assay has been cleared by the [place] Food and Drug Administration and its performance characteristics have been verified by the [facility]. For questions about this culture, contact the Microbiology Laboratory at [phone]. Interpretive data was last revised on 24. us Tash Fink MD LAB MICROBIOLOGY - GENERA L ORDERABLES Final Result JCARLOS HOPPER) 1 [facility] Department [place] [address] * Blood culture Blood Peripheral (05/25/2024 10:52 PM CLERICAL STOCK INSPECTOR) Report Final Report: No growth Comment:Testing performed by : [facility], [address] [facility], [place]., [address] Blood (Peripheral) 05/25/2024 10:52 PM CLERICAL STOCK INSPECTOR 05/26/2024 2:42 AM CLERICAL STOCK INSPECTOR Narrative JCARLOS JAMES ([facility]) - 05/30/2024 7:01 AM CLERICAL STOCK INSPECTOR Draw Blood cultures before administration of Antibiotics Collection->Peripheral 1. Blood cultures are incubated for 4 days on a continuously monitored blood culture system. The first report of a negative culture is issued within 24 hours of receipt of the specimen in the laboratory. 2. Positive culture results are reported as soon as they are detected. 3. The most important factor for detection of microbes in the setting of bloodstream infection is the volume of blood submitted for culture. Failure to collect an optimal blood volume can result in false negative blood cultures. 4. For pediatric patients, the recommended blood volume to collect follows a weight based strategy. See the electronic test catalog for collection instructions. 5. For positive blood cultures, a rapid molecular test may be performed for organism identification using the tone ePlex blood culture identification panel for gram positive (BCID-GP) and gram negative (BCID-GN) organisms. This nucleic acid amplification test detects microbial DNA in positive blood culture broth. This assay has been cleared by the [place] Food and Drug Administration and its performance characteristics have been verified by the [facility]. For questions about this culture, contact the Microbiology Laboratory at [phone]. Interpretive data was last revised on 24. us Tash Fink MD LAB MICROBIOLOGY - GENERA L ORDERABLES Final Result JCARLOS RAMIREZ [place]) 6 [facility] Department [place] [address] * CT Neck Soft Tissue W Contrast (05/25/2024 8:28 PM CLERICAL STOCK INSPECTOR) Anatomical Region Laterality Modality Head and Neck N/A Computed Tomogra phy 05/25/2024 9:19 PM CLERICAL STOCK INSPECTOR Narrative 05/25/2024 9:30 PM CLERICAL STOCK INSPECTOR EXAM DESCRIPTION: CT SOFT TISSUE NECK W CONTRAST REASON FOR STUDY: include teeth please - sent in by dentist Patient complains of right lower dental pain. Per ordering evaluate for abscess. TECHNIQUE: Post IV contrast scanning from skull base through lung apices. Reconstructed MPR images reviewed. All images stored on PACS. Automated exposure control was used as a dose optimization technique for this examination. CONTRAST TYPE/DOSE: 75mL of IOVERSOL 350 MG IODINE/ML INTRAVENOUS SYRINGE injected via intravenous COMPARISON: None available. FINDINGS: The bilateral globes are symmetric. The imaged paranasal sinuses are predominantly clear. The nasal septum is bowed towards the right. The bilateral mastoid air cells are predominantly clear. Temporomandibular joints are symmetrically placed. The zygomatic arches are intact. Portions of the bilateral parotid glands are obscured by severe dental scientology related artifact. The bilateral submandibular glands enhance symmetrically. The dental amalgam related streak artifact limits the assessment of the adjacent structures including the oral cavity and oropharynx. Periapical lucency about the last remaining right mandibular molar with adjacent soft tissue thickening in the submandibular space. Additional asymmetric fullness along the right submandibular space when compared to the contralateral side with a heterogeneous enhancement (series 3, image 36-39). Uncertain if this reflects additional infectious process underlying mass. Just anterior inferior to the right submandibular gland is a peripherally enhancing, centrally cystic 1 x 1 x 0.7 cm focus with adjacent skin thickening (series 3, image 42-43 and series 6, image 40). This could be an abscess or a cystic/necrotic adenopathy. There are bilateral palatine tonsilliths. The remainder of the airway is midline and patent. The bilateral internal jugular veins are contrast filled. A few scattered cervical chain lymph nodes, for example submental 0.5 cm, right level 20.9 x 0.8 cm and right level 30.6 x 0.5 cm. No thyroid nodule greater than 1 cm in size. Lung apices without a focal pneumonic consolidation. Pulmonary nodules, for example right upper lobe lateral margin 0.2 cm (series 3, image 79) and left upper lobe 0.2 cm (series 2, image 69). Cervical disc degeneration ranging up to moderate to severe at C5-C6. Osseous fusion across the bilateral C2-C3 facet joints and right C4-C5 facet joint. IMPRESSION: 1. Periapical lucency about the last remaining right mandibular molar. Adjacent soft tissue thickening would be compatible with an infectious process. 2. More diffuse heterogeneous enhancement in the right submandibular space is nonspecific and could be additional infectious process. Underlying mass would be difficult to exclude. 3. Just anterior to the right submandibular gland is a 1 cm rim enhancing centrally cystic focus, presumed to be an abscess. A cystic/necrotic adenopathy could also have similar appearance. 4. Recommend ENT consultation and attention on follow-up. 5. Elsewhere in the neck there are a few subcentimeter lymph nodes on both sides. Attention on follow-up. 6. Small pulmonary nodules. The need for follow-up as discussed below. According to recent guidelines by the Fleischner Society, no follow up is required for incidental nodules less than 6 mm found on incomplete thoracic imaging on the basis of estimated low risk of malignancy. Note: These recommendations do not apply to patients with immunosuppression, or patients with known primary cancer. http://pubs.rsna.org/doi/pdf/10.1148/radiol.3252612475 THIS IS AN ELECTRONICALLY VERIFIED FINAL REPORT 05/25/2024 9:30 PM - Electronically signed by Isaiah Mcneil D.O. AP: AP Report ID: [id number] Reading Location: [place] [address] Procedure Note Isaiah Mcneil, DO - 05/25/2024 EXAM DESCRIPTION: CT SOFT TISSUE NECK W CONTRAST REASON FOR STUDY: include teeth please - sent in by dentist Patient complains of right lower dental pain. Per ordering evaluate for abscess. TECHNIQUE: Post IV contrast scanning from skull base through lung apices. Reconstructed MPR images reviewed. All images stored on PACS. Automated exposure control was used as a dose optimization technique for this examination. CONTRAST TYPE/DOSE: 75mL of IOVERSOL 350 MG IODINE/ML INTRAVENOUSSYRINGE injected via intravenous COMPARISON: None available. FINDINGS: The bilateral globes are symmetric. The imaged paranasal sinuses are predominantly clear. The nasal septum is bowed towards the right. The bilateral mastoid air cells are predominantly clear.Temporomandibular joints are symmetrically placed. The zygomatic arches are intact. Portions of the bilateral parotid glands are obscured by severe dental scientology related artifact. The bilateral submandibular glands enhance symmetrically. The dental amalgam related streak artifact limits the assessment of the adjacent structures including the oral cavity and oropharynx. Periapical lucency about the last remaining right mandibular molar with adjacent soft tissue thickening in the submandibular space. Additional asymmetricfullness along the right submandibular space when compared to the contralateralside with a heterogeneous enhancement (series 3, image 36-39). Uncertain ifthis reflects additional infectious process underlying mass. Just anterior inferior to the right submandibular gland is a peripherally enhancing, centrally cystic 1 x 1 x 0.7 cm focus with adjacent skin thickening(series 3, image 42-43 and series 6, image 40). This could be an abscess or a cystic/necrotic adenopathy. There are bilateral palatine tonsilliths. The remainder of the airway is midline and patent. The bilateral internal jugular veins are contrast filled. A few scattered cervical chain lymph nodes, for example submental 0.5 cm, right level 20.9 x 0.8 cm and right level 30.6 x 0.5 cm. No thyroid nodule greater than 1 cm in size. Lung apices without a focal pneumonic consolidation. Pulmonary nodules,for example right upper lobe lateral margin 0.2 cm (series 3, image 79) andleft upper lobe 0.2 cm (series 2, image 69). Cervical disc degeneration ranging up to moderate to severe at C5-C6.Osseous fusion across the bilateral C2-C3 facet joints and right C4-C5 facetjoint. IMPRESSION: 1. Periapical lucency about the last remaining right mandibular molar. Adjacent soft tissue thickening would be compatible with an infectious process. 2. More diffuse heterogeneous enhancement in the right submandibularspace is nonspecific and could be additional infectious process. Underlyingmass would be difficult to exclude. 3. Just anterior to the right submandibular gland is a 1 cm rimenhancing centrally cystic focus, presumed to be an abscess. A cystic/necrotic adenopathy could also have similar appearance. 4. Recommend ENT consultation and attention on follow-up. 5. Elsewhere in the neck there are a few subcentimeter lymph nodes onboth sides. Attention on follow-up. 6. Small pulmonary nodules. The need for follow-up as discussed below. According to recent guidelines by the Fleischner Society, no follow up is required for incidental nodules less than 6 mm found on incompletethoracic imaging on the basis of estimated low risk of malignancy. Note: These recommendations do not apply to patients withimmunosuppression, or patients with known primary cancer. http://pubs.rsna.org/doi/pdf/10.1148/radiol.8905745834 THIS IS AN ELECTRONICALLY VERIFIED FINAL REPORT 05/25/2024 9:30 PM - Electronically signed by Isaiahsaritha Mcneil D.O. AP: LIBIA Report ID: [id number] Reading Location: [id number] Tash Fink MD IMG CT PROCEDURES Final R esult * eGFR (05/25/2024 6:52 PM CLERICAL STOCK INSPECTOR) eGFR 82 >=60 mL/min/1. 73 m2 Comment: Interpretive Data Reference Interval Normal >/= 90 mL/min/1.73m2 Mildly decreased* 60 - 89 mL/min/1.73m2 Mildly to moderately decreased 45 - 59 mL/min/1.73m2 Moderately to severely decreased 30 - 44 mL/min/1.73m2 Severely decreased 15 - 29 mL/min/1.73m2 Kidney Failure < 15 mL/min/1.73m2 *Relative to young adult level Estimated glomerular filtration rate is determined by the 2020 CKD-EPI equation recommended by the National Kidney Foundation (A Unifying Approach to GFR Estimation: Recommendations of the NKF-ASK Task Force on Reassessing the Inclusion of Race in Diagnosing Kidney Disease, JASN 2020). The CKD-EPI equation should not be used for patients with unstable renal function and has not been validated in children and those over 70. Current interpretive data was last reviewed 2021. Blood 05/25/2024 6:52 PM CLERICAL STOCK INSPECTOR 05/25/2024 6:55 PM CLERICAL STOCK INSPECTOR Tash Fink MD LAB BLOOD ORDERABLES Abbi l Result [facility] Department [place] [address] * Differential, auto (05/25/2024 6:52 PM CLERICAL STOCK INSPECTOR) Neutrophil abs 3.1 1.5 - 6.5 K/cumm Imm gran abs 0.0 0.0 - 0.1 K/cumm [facility] ([place]) Lymphocyte abs 1.7 0.8 - 3.3 K/cumm [facility] ([place]) Monocyte abs 0.5 0.2 - 0.8 K/cumm [facility]) Eosinophil abs 0.1 0.0 - 0.5 K/cumm [facility] ([place]) Basophil abs 0.0 0.0 - 0.1 K/cumm [facility]) Neutrophil pct 56.8 % [facility] ([place] Comment: Interpretive Data Percent cell count reference ranges are not reported, since discordance with absolute values may lead to misinterpretation of CBC data. Current Interpretive Data was last revised on 2017. Imm gran pct 0.4 % [facility] ([place] Comment: Interpretive Data Percent cell count reference ranges are not reported, since discordance with absolute values may lead to misinterpretation of CBC data. Current Interpretive Data was last revised on 2017. Lymphocyte pct 30.5 % [facility] ([place] Comment: Interpretive Data Percent cell count reference ranges are not reported, since discordance with absolute values may lead to misinterpretation of CBC data. Current Interpretive Data was last revised on 2017. Monocyte pct 9.4 % [facility] ([place] Comment: Interpretive Data Percent cell count reference ranges are not reported, since discordance with absolute values may lead to misinterpretation of CBC data. Current Interpretive Data was last revised on 2017. Eosinophil pct 2.2 % [facility] ([place] Comment: Interpretive Data Percent cell count reference ranges are not reported, since discordance with absolute values may lead to misinterpretation of CBC data. Current Interpretive Data was last revised on 2017. Basophil pct 0.7 % [facility] ([place] Comment: Interpretive Data Percent cell count reference ranges are not reported, since discordance with absolute values may lead to misinterpretation of CBC data. Current Interpretive Data was last revised on 2017. Blood 05/25/2024 6:52 PM CLERICAL STOCK INSPECTOR 05/25/2024 6:55 PM CLERICAL STOCK INSPECTOR us Tash Fink MD LAB BLOOD ORDERABLES Abbi malagon Result [facility] ([place] Department [place] [address] * (ABNORMAL) CBC with auto differential (05/25/2024 6:52 PM CLERICAL STOCK INSPECTOR) [facility] WBC 5.4 3.8 - 9.9 K/cumm Hgb 13.0 11.9 - 15.5 g/dL [facility] Hct 38.3 35.6 - 45.5 % [facility] Plt 258 150 - 400 K/cumm [facility] ([place]) MPV 10.1 9.1 - 12.3 fL [facility] RBC 4.75 3.90 - 5.20 M/cumm [facility] MCV 80.6(L) 81.3 - 96.4 fL [facility] MCH 27.4 27.1 - 33.3 pg [facility] MCHC 33.9 32.3 - 35.7 g/dL [facility] RDW CV 13.9 11.1 - 14.9 % [facility] RDW SD 41.2 35.7 - 48.1 fL [facility] NRBC abs 0.00 0.00 - 0.01 K/cumm [facility] Blood 05/25/2024 6:52 PM CLERICAL STOCK INSPECTOR 05/25/2024 6:55 PM CLERICAL STOCK INSPECTOR Tash Fink MD LAB BLOOD ORDERABLES Abbi l Result [facility] Department [place] [address] * Comprehensive metabolic panel (05/25/2024 6:52 PM CLERICAL STOCK INSPECTOR) [facility] Sodium 136 135 - 145 mmol/L Potassium, pl 3.8 3.3 - 4.9 mmol/L [facility] Chloride 100 97 - 110 mmol/L [facility] CO2 27 22 - 32 mmol/L [facility] Anion gap 9 2 - 15 mmol/L [facility] BUN 18 6 - 25 mg/dL [facility]) Creatinine 0.73 0.60 - 1.10 mg/dL [facility] Glucose 98 70 - 199 mg/dL [facility] Comment: Interpretive Data Fasting glucose >/= 126 mg/dl is diagnostic for diabetes. Fasting is defined as no caloric intake for at least 8 hours. Fasting glucose between 100 mg/dl to 125 mg/dl is diagnostic of prediabetes. In a patient with classic symptoms of hyperglycemia or hyperglycemic crisis, a random glucose >/= 200 mg/dl is diagnostic for diabetes. In the absence of unequivocal hyperglycemia, results should be confirmed by repeat testing. The classification and Diagnosis of Diabetes Diabetes Care 202; 46: S19-S40. Current interpretive data was last revised 2022. Calcium 9.5 8.5 - 10.3 mg/dL [facility] Bilirubin, total 0.4 0.1 - 1.2 mg/dL [facility]) Protein, pl 7.2 6.5 - 8.5 g/dL [facility]) Albumin 3.7 3.5 - 5.0 g/dL [facility]) Alk phos 125 40 - 130 Units/L [facility] ALT 22 7 - 45 Units/L [facility] AST 23 10 - 45 Units/L [facility]) Blood 05/25/2024 6:52 PM CLERICAL STOCK INSPECTOR 05/25/2024 6:55 PM CLERICAL STOCK INSPECTOR Tash Fink MD LAB BLOOD ORDERABLES Abbi malagon Result [facility] [facility] ([place]) [facility] Department [place] [address] from Last 3 Months Additional Health Concerns Active Problems Noted Date Diagnosed Date Initial Follow-Up Appointment 05/30/2024 Note: Pt hospitalized for oral abscess, A.Fib, and hyperthyroidism. Hx HTN. Epic risk 11 Barriers to Medication Adherence 05/30/2024 Insurance [facility] MEDICARE [facility] MEDIC[facility] Advance Directives For more information, please contact: [phone] * LIMITED - No CPR (Latest Code Status on File) Date Activated Date Inactivated Comments 05/26/2024 11:11 AM 05/29/2024 6:50 PM Question Answer Comments Provide aggressive medical m anagement before a full cardiopulmonary arrest occurs. Use antibiotics, IV Fluids, and medical treatment unless specifically selected below: No intubation Care Teams Concrete Block Maker Relationship Specialty Start Date End Date Kuldip Watt DO [address] [place] [address] PCP - General Family Medicine 05/25/24 Audra Berry, RN [address] [facility] [address] [place] [id number] [facility] Outpatient Load Checker 05/30/24
--- OUTSIDE RECORDS SUMMARY | 2024-06-25 14:21 | XMS_ITS ---
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 Name Role Phone Kuldip Watth Primary Care Provider Audra Berry RN Unavailable [phone] Active Problems Problem Noted Date Diagnosed Date Low TSH level 05/27/2024 Assessment & Plan (05/29/2024 12:05 PM PULP BLEACHER): - in workup for Afib noted TSH [...] 05/26/2024 Assessment & Plan (05/29/2024 12:01 PM PULP BLEACHER): - ENT was consulted from ED and [...] 05/26/2024 Assessment & Plan (05/26/2024 11:19 AM PULP BLEACHER): -continue home losartan hctz -ctm Atrial fibrillation 05/26/2024 Assessment & Plan (05/29/2024 12:03 PM PULP BLEACHER): - EKG with AF w rate 114 - Per daughter at bedside 05/26, this is not a new diagnosis but pt denies. On clarification 05/27, daughter says that it was another family member and the patient has not had prior dx of afib Patient has not been on anticoagulation in the past. Is agreeable to custodial AC. No sig bleeding hx or hx [...] 05/26/2024 Assessment & Plan (05/26/2024 11:20 AM PULP BLEACHER): Pulmonary nodules, for example right upper lobe [...] (05/26/2024): Added automatically from request for surgery [id number] Bilateral knee pain 02/04/2022 Additional Health Concerns Active Problems Noted Date Diagnosed Date Initial Follow-Up Appointment 05/30/2024 Note: Pt hospitalized for oral abscess, A.Fib, and hyperthyroidism. Hx HTN. Epic risk 11 Barriers to Medication Adherence 05/30/2024 Goals Goal Patient Goal Type Associated Problems Recent Progress Patient-Stated? Author Patient will have kept initial appointment and will show signs of improvement to baseline Care Plan Initial Follow-Up Appointment Audra Motta, RN Note: Pt has appointment with PCP on 06/07 and is able to drive herself to local appointments and errands. Patient will have access to medications needed for healthy outcomes Care Plan Barriers to Medication Adherence Audra Motta, RN Interventions Care Plan Interventions Intervention Entry Date Outcome Contact prescriber to request an alternative medication/prescription assistance plan if pt cannot afford medication, is not covered by insurance, or patient did not receive prescription 05/30/2024 Ensure that prescriptions are transferred to pt s home pharmacy as needed 05/30/2024 Transfer prescriptions to pharmacy that delivers to patient s home as needed 05/30/2024 Review when to call their physician for potential medication refills or complications 05/30/2024 Coordinate with [facility] pharmacist to assist with identified concerns or educational needs 05/30/2024 Voucher medication as needed 05/30/2024 Ensure Pt has follow-up scheduled within 7 days of discharge 05/30/2024 Related Goals and Interventions Goal Associated Intervent ions Patient will have kept initi al appointment and will show signs of improvement to baseline Ensure Pt has follow-up scheduled within 7 days of discharge Patient will have access to medications needed for healthy outcomes Contact prescriber to request an alternative medication/prescription assistance plan if pt cannot afford medication, is not covered by insurance, or patient did not receive prescription; Ensure that prescriptions are transferred to pt s home pharmacy as needed; Transfer prescriptions to pharmacy that delivers to patient s home as needed; Review when to call their physician for potential medication refills or complications; Coordinate with [facility] pharmacist to assist with identified concerns or educational needs; Voucher medication as needed
--- OUTSIDE RECORDS SUMMARY | 2024-06-25 14:21 | XMS_ITS | Referral Summary ---
Author Organization [facility] Address [address] [place] [address] Care Team Providers Care Museum Curator Name Role Phone Kuldip Watt Primary Care Provider Audra Berry RN Unavailable [phone] Encounters Date Type Department Care Team Description 06/19/2024 SHOP/CHAP Subsequent Outreach [facility] OP CASE MANAGEMENT [address] [place] [address] Audra Berry, ALEJANDRO 06/15/2024 8:20 AM COMPUTER AIDED DESIGN DESIGNER Lab [facility] [address] [place] [address] Low TSH level 06/15/2024 10:40 AM COMPUTER AIDED DESIGN DESIGNER Office Visit [facility] Endocrinology Metabolism and Lipid [address] 13[address] [place] [address] [place] [address] Kika Goodman MD PhD Graves disease (Primary Dx); Other osteoporosis without current pathological fracture 06/11/2024 SHOP/CHAP Subsequent Outreach [facility] OP CASE MANAGEMENT [address] [place] [address] Audra Berry, RN 06/05/2024 SHOP/CHAP Subsequent Outreach [facility] OP CASE MANAGEMENT [address] [place] [address] Audra Berry, RN 05/30/2024 SHOP/CHAP Initial Outreach [facility] OP CASE MANAGEMENT [address] [place] [address] Audra Berry RN 05/30/2024 SHOP/CHAP Initial Eligibility Review [facility] OP CASE MANAGEMENT [address] [place] [address] Audra Berry RN 05/26/2024 6:57 AM COMPUTER AIDED DESIGN DESIGNER - 05/29/2024 2:45 PM COMPUTER AIDED DESIGN DESIGNER Hospital Encounter [facility] [address] [facility] [place] [address] Audra Espinoza MD Dao, MD Calos Steel, MD Matilde Madrigal, MD Ayan Morin, Zaki Rich MD Submandibular abscess (Primary Dx); Chronic atrial fibrillation (HCC); Low TSH level Discharge Disposition: Discharge to home or self care 05/25/2024 9:22 PM COMPUTER AIDED DESIGN DESIGNER - 05/26/2024 4:37 AM COMPUTER AIDED DESIGN DESIGNER Emergency [facility] Emergency Department [address] [place] [id number] Tash Fink MD Wala, Brown Acuña MD Dental abscess (Primary Dx); Submandibular abscess Discharge Disposition: Discharge to not defined facility from Last 3 Months Allergies Active Allergy Reactions Criticality Noted Date [...] 4 (four) times a day 120 mL 02/11/20 25 Active apixaban (ELIQUIS) 5 mg tablet Take 1 tablet (5 mg total) by mouth 2 (two) times a day 60 tablet 1 05/29/19 25 025 Active methIMAzole (TAPAZOLE) 10 mg tabletIndicati ons:Graves disease Take 1 tablet (10 mg total) by mouth daily 90 tablet 3 06/15/19 25 026 Active metoprolol XL (TOPROL-XL) 50 mg extended release tabletIndicati ons:Graves disease Take 1 tablet (50 mg total) by mouth daily 90 tablet 3 06/15/19 25 026 Active azithromycin (ZITHROMAX) 250 mg tablet [...] mg total) by mouth daily 15 tablet 05/30/19 025 Discontinued(Re order) metoprolol XL (TOPROL-XL) 25 mg extended release tablet Take 1 tablet (25 mg total) by mouth daily 30 tablet 05/29/19 25 025 Discontinued(Re order) metoprolol XL (TOPROL-XL) 50 mg extended release tabletIndicati ons:Graves disease Take 1 tablet (50 mg total) by mouth daily 90 tablet 3 06/15/19 25 025 Discontinued methIMAzole (TAPAZOLE) 10 mg tabletIndicati ons:Graves disease Take 1 tablet (10 mg total) by mouth daily 90 tablet 3 06/15/19 25 025 Discontinued Active Problems Problem Noted Date Diagnosed Date Low TSH level 05/27/2024 Assessment & Plan (05/29/2024 12:05 PM COMPUTER AIDED DESIGN DESIGNER): - in workup for Afib noted TSH [...] 05/26/2024 Assessment & Plan (05/29/2024 12:01 PM COMPUTER AIDED DESIGN DESIGNER): - ENT was consulted from ED and [...] 05/26/2024 Assessment & Plan (05/26/2024 11:19 AM COMPUTER AIDED DESIGN DESIGNER): -continue home losartan hctz -ctm Atrial fibrillation 05/26/2024 Assessment & Plan (05/29/2024 12:03 PM COMPUTER AIDED DESIGN DESIGNER): - EKG with AF w rate 114 - Per daughter at bedside 05/26, this is not a new diagnosis but pt denies. On clarification 05/27, daughter says that it was another family member and the patient has not had prior dx of afib Patient has not been on anticoagulation in the past. Is agreeable to assisted AC. No sig bleeding hx or hx falls. Chadsvasc score 4 for age, sex, hx htn. - TTE pending - TSH low and elevated T4. See other problem. - can paiz check/start DOAC closer to dc - Jessicais ~$150 for 1 month - Continue telemetry monitoring - Metoprolol low dose Q6h and titrate for HR - will transition to XL daily on d/c - monitor electrolytes, goal mag> 2, K>4 Pulmonary nodules 05/26/2024 Assessment & Plan (05/26/2024 11:20 AM COMPUTER AIDED DESIGN DESIGNER): Pulmonary nodules, for example right upper lobe [...] Status post total left knee replacement 03/08/20 Primary osteoarthritis of left knee 02/19/2022 Overview (05/26/2024): Added automatically from request for surgery [id number] Bilateral knee pain 02/04/2022 Immunizations Immunization Administration Dates Next Due ZOSTER LIVE 04/17/2013 Social History Tobacco Use Types Packs/Day Years Used Date Smoking Tobacco: Unknown Tobacco Cessation:Counseling Given: Not Answered [facility] Utilities Answer Date Recorded In the past 12 months has [employer], gas, oil, or water [employer] threatened to shut off services in your [...] 05/30/2024 How often do you attend chur ch or taoism services? More than 4 times per year 05/30/2024 Do you belong to any clubs o r organizations such as mandaeism groups, unions, fraternal or athletic groups, or [...] any time in the past 12 m [facility], were you homeless or living in a [place] health care facility (including now)? No 05/30/2024 Personal Safety Answer Date Recorded Have you ever been in or are you currently in a harmful physical or emotional relationship or is someone making you feel afraid or unsafe? Denies 05/26/2024 Comments Unknown Sex and Gender Information Value Date Recorded Sex Assigned at Not on file Legal Sex Female 5:17 PM COMPUTER AIDED DESIGN DESIGNER Gender Identity Not on file Sexual Orientation Not on file Last Filed Vital Signs Vital Sign Reading Time Taken Comments Blood Pressure 130/77 06/15/2024 10:17 AM COMPUTER AIDED DESIGN DESIGNER Pulse 107 06/15/2024 10:17 AM COMPUTER AIDED DESIGN DESIGNER Temperature 37 C (98.6 F) 06/15/2024 10:17 AM COMPUTER AIDED DESIGN DESIGNER Respiratory Rate 16 05/29/2024 2:25 PM COMPUTER AIDED DESIGN DESIGNER Oxygen Saturation 100% 05/29/2024 2:25 PM COMPUTER AIDED DESIGN DESIGNER Inhaled Oxygen Concentration - - Weight 54.3 kg (119 lb 12.8 oz) 025 10:17 AM COMPUTER AIDED DESIGN DESIGNER Height 149.9 cm (4' 11 ) 06/15/2024 10: 17 AM COMPUTER AIDED DESIGN DESIGNER Body Mass Index 24.2 06/15/2024 10:17 AM COMPUTER AIDED DESIGN DESIGNER Plan of Treatment Not on file Goals Goal Patient Goal Type Associated Problems [...] Plan Barriers to Medication Adherence Audra Motta, doubling machine operator Procedure Name Priority Date/Time Associated Diagnosis Comments T4, FREE Routine 06/15/2024 8:15 AM COMPUTER AIDED DESIGN DESIGNER Low TSH level THYROID FUNCTION CASCADE Routine 06/15/2024 8:15 AM COMPUTER AIDED DESIGN DESIGNER Low TSH level TRANSTHORACIC ECHO (TTE) COMPLETE W DOPPLER/CF WO CONTRAST Routine 05/29/2024 2:08 PM COMPUTER AIDED DESIGN DESIGNER EGFR Routine 05/29/2024 12:08 AM COMPUTER AIDED DESIGN DESIGNER DIFFERENTIAL AUTO Routine 05/29/2024 12: 08 AM COMPUTER AIDED DESIGN DESIGNER HEPATIC FUNCTION PANEL Routine 12:08 AM COMPUTER AIDED DESIGN DESIGNER MAGNESIUM Routine 05/29/2024 12:08 AM COMPUTER AIDED DESIGN DESIGNER CBC WITH AUTO DIFFERENTIAL Routine 05/29/2024 12:08 AM COMPUTER AIDED DESIGN DESIGNER BASIC METABOLIC PANEL Routine 05/29/2024 12:08 AM COMPUTER AIDED DESIGN DESIGNER TSH RECEPTOR ANTIBODY Routine 05/27/2024 8:59 PM COMPUTER AIDED DESIGN DESIGNER EGFR Routine 05/27/2024 8:58 PM COMPUTER AIDED DESIGN DESIGNER DIFFERENTIAL AUTO Routine 05/27/2024 8:5 8 PM COMPUTER AIDED DESIGN DESIGNER THYROID STIMULATING IMMUNOGLOBULIN Routine 05/27/2024 8:58 PM COMPUTER AIDED DESIGN DESIGNER THYROID PEROXIDASE ANTIBODY Routine 05/27/2024 8:58 PM COMPUTER AIDED DESIGN DESIGNER MAGNESIUM Routine 05/27/2024 8:58 PM COMPUTER AIDED DESIGN DESIGNER CBC WITH AUTO DIFFERENTIAL Routine 05/27/2024 8:58 PM COMPUTER AIDED DESIGN DESIGNER BASIC METABOLIC PANEL Routine 05/27/2024 8:58 PM COMPUTER AIDED DESIGN DESIGNER T3, FREE Routine 05/27/2024 5:05 AM COMPUTER AIDED DESIGN DESIGNER THYROID FUNCTION CASCADE Routine 05/27/2024 5:05 AM COMPUTER AIDED DESIGN DESIGNER T4, FREE Routine 05/27/2024 5:05 AM COMPUTER AIDED DESIGN DESIGNER MAGNESIUM Routine 05/27/2024 5:05 AM COMPUTER AIDED DESIGN DESIGNER EGFR Routine 05/27/2024 5:05 AM COMPUTER AIDED DESIGN DESIGNER RENAL FUNCTION PANEL Routine 05/27/2024 5:05 AM COMPUTER AIDED DESIGN DESIGNER CBC WITHOUT DIFFERENTIAL Routine 05/27/2024 5:05 AM COMPUTER AIDED DESIGN DESIGNER XR ORTHOPANTOGRAM/PANOREX IP Routine 05/26/2024 5:44 PM COMPUTER AIDED DESIGN DESIGNER EGFR STAT 05/26/2024 11:50 AM COMPUTER AIDED DESIGN DESIGNER CREATININE STAT 05/26/2024 11:50 AM COMPUTER AIDED DESIGN DESIGNER APTT STAT 05/26/2024 11:50 AM COMPUTER AIDED DESIGN DESIGNER CBC WITHOUT DIFFERENTIAL STAT 05/26/2024 11:50 AM COMPUTER AIDED DESIGN DESIGNER PROTIME-INR STAT 05/26/2024 11:50 AM COMPUTER AIDED DESIGN DESIGNER B CHECK SAMPLE STAT 05/26/2024 8:40 AM COMPUTER AIDED DESIGN DESIGNER APTT STAT 05/26/2024 8:09 AM COMPUTER AIDED DESIGN DESIGNER PROTIME-INR STAT 05/26/2024 8:09 AM COMPUTER AIDED DESIGN DESIGNER TYPE AND SCREEN STAT 05/26/2024 8:09 AM COMPUTER AIDED DESIGN DESIGNER ECG 12-LEAD Routine 05/26/2024 7:31 AM COMPUTER AIDED DESIGN DESIGNER PROTIME-INR STAT 05/25/2024 11:18 PM COMPUTER AIDED DESIGN DESIGNER SEPSIS LACTATE WITH REFLEX STAT 05/25/2024 11:18 PM COMPUTER AIDED DESIGN DESIGNER BLOOD CULTURE STAT 05/25/2024 10:52 PM COMPUTER AIDED DESIGN DESIGNER BLOOD CULTURE STAT 05/25/2024 10:52 PM COMPUTER AIDED DESIGN DESIGNER CT SOFT TISSUE NECK W CONTRAST ED 05/25/2024 8:28 PM COMPUTER AIDED DESIGN DESIGNER EGFR STAT 05/25/2024 6:52 PM COMPUTER AIDED DESIGN DESIGNER DIFFERENTIAL AUTO STAT 05/25/2024 6:5 2 PM COMPUTER AIDED DESIGN DESIGNER COMPREHENSIVE METABOLIC PANEL STAT 05/25/2024 6:52 PM COMPUTER AIDED DESIGN DESIGNER CBC WITH AUTO DIFFERENTIAL STAT 05/25/2024 6:52 PM COMPUTER AIDED DESIGN DESIGNER from Last 3 Months Results * (ABNORMAL) Thyroid Function Evangeline (06/15/2024 8:15 AM COMPUTER AIDED DESIGN DESIGNER) TSH <0.01(L) 0.30 - 4.20 mcIUnit/mL Blood 06/15/2024 8:15 AM COMPUTER AIDED DESIGN DESIGNER 06/15/2024 8:31 AM COMPUTER AIDED DESIGN DESIGNER us Zaki Botello MD LAB BLOOD ORDERABLES F inal Result Performing Organization Address [facility] Co de Phone Number [facility] [place] [address] * (ABNORMAL) T4, free (06/15/2024 8:15 AM COMPUTER AIDED DESIGN DESIGNER) Free T4 1.99(H) 0.90 - 1.70 ng/dL Blood 06/15/2024 8:15 AM COMPUTER AIDED DESIGN DESIGNER 06/15/2024 8:36 AM COMPUTER AIDED DESIGN DESIGNER Narrative [facility] - 06/15/2024 9:35 AM COMPUTER AIDED DESIGN DESIGNER This test was reflexed from a TSH result. Zaki Botello MD LAB BLOOD ORDERABLES F inal Result Performing Organization Address [facility] de Phone Number [facility] [place] [address] * TRANSTHORACIC ECHO (TTE) COMPLETE W DOPPLER/CF WO CONTRAST (05/29/2024 2:08 PM COMPUTER AIDED DESIGN DESIGNER) [facility] LV EF % CONS SCIMAGE Anatomical Region Laterality Modality Ultrasound 05/29/2024 12:5 5 PM COMPUTER AIDED DESIGN DESIGNER Narrative 05/29/2024 5:33 PM COMPUTER AIDED DESIGN DESIGNER [facility] [place] [address] Transthoracic Echocardiographic Report Patient Name: RAFA FIELDS : 1940 (84y ) Gender: F Study Date: 05/29/2024 12:55:15 PM Ht(Inch): 59 Wt(Lb): 134.92 BSA: 1.6 Parole Or Probation Officer: Cony Solomon RDCS Location: [id number] Order Provider: MARK CLAYTON Heart Rate: 79 BMI: 27.25 BP: 133/90 Quality: The study images were of technically good quality. Ref Provider: MARK CLAYTON PROCEDURES: Echocardiographic Report: ([id number]) Transthoracic complete echo with strain imaging, 2D, [...] By: Rony Arroyo MD 05/29/2024 3:43:24 PM COMPUTER AIDED DESIGN DESIGNER Electronically Signed By: Jorge Zavaleta MD 05/29/2024 5:32:47 PM COMPUTER AIDED DESIGN DESIGNER Procedure Note Jorge Zavaleta MD - 05/29/2024 [facility] [place] [address] Transthoracic Echocardiographic Report Patient Name: RAFA FIELDS : 1940 (84y ) Gender: F Study Date: 05/29/2024 12:55:15 PM Ht(Inch): 59 Wt(Lb): 134.92 BSA: 1.6 Parole Or Probation Officer: Cony Solomon RDCS Location: [id number] Order Provider:MATILDEMARK Heart Rate: 79 BMI: 27.25 BP: 133/90 Quality: The study images were oftechnically good quality. Ref Provider: MARK CLAYTON PROCEDURES: Echocardiographic Report: ([id number], [id number]) Transthoracic complete echo withstrain imaging, 2D, spectral [...] cm [ 2.5 - 4.2 ] MR YLH454.8 cm TAPSE 1.18 cm [ 1.71 - [...] mmHg Asc Ao Index 2.03 cm/m2 PI DDZ185.10 sec - COMPARISONS: There was no previous [...] By: Rony Arroyo MD 05/29/2024 3:43:24 PM COMPUTER AIDED DESIGN DESIGNER Electronically Signed By: Jorge Zavaleta MD 05/29/2024 5:32:47 PM COMPUTER AIDED DESIGN DESIGNER Mark Clayton MD CV ECHO PROCEDURES Final Result * eGFR (05/29/2024 12:08 AM COMPUTER AIDED DESIGN DESIGNER) eGFR 74 >=60 mL/min/1. 73 m2 Comment: [...] reviewed 2021. Blood 05/29/2024 12:0 8 AM COMPUTER AIDED DESIGN DESIGNER 05/29/2024 12:51 AM COMPUTER AIDED DESIGN DESIGNER us Mark Clayton MD LAB BLOOD ORDERABLES Abbi l Result JCARLOS [facility] Department of Laboratories [place], [place] [id number] * Differential, auto (05/29/2024 12:08 AM COMPUTER AIDED DESIGN DESIGNER) Neutrophil abs 5.3 1.5 - 6.5 K/cumm Imm gran abs 0.0 0.0 - 0.1 K/cumm [facility] Lymphocyte abs 2.0 0.8 - 3.3 K/cumm [facility] Monocyte abs 0.5 0.2 - 0.8 K/cumm [facility] Eosinophil abs 0.1 0.0 - 0.5 K/cumm [facility] Basophil abs 0.0 0.0 - 0.1 K/cumm [facility] Neutrophil pct 65.9 % [facility] Comment: Interpretive Data Percent cell count reference ranges are not reported, since discordance with absolute values may lead to misinterpretation of CBC data. Current Interpretive Data was last revised on 2017. Imm gran pct 0.4 % [facility] Comment: Interpretive Data Percent cell count reference ranges are not reported, since discordance with absolute values may lead to misinterpretation of CBC data. Current Interpretive Data was last revised on 2017. Lymphocyte pct 25.3 % [facility] Comment: Interpretive Data Percent cell count reference ranges are not reported, since discordance with absolute values may lead to misinterpretation of CBC data. Current Interpretive Data was last revised on 2017. Monocyte pct 6.4 % [facility] Comment: Interpretive Data Percent cell count reference ranges are not reported, since discordance with absolute values may lead to misinterpretation of CBC data. Current Interpretive Data was last revised on 2017. Eosinophil pct 1.5 % [facility] Comment: Interpretive Data Percent cell count reference ranges are not reported, since discordance with absolute values may lead to misinterpretation of CBC data. Current Interpretive Data was last revised on 2017. Basophil pct 0.5 % [facility] Comment: Interpretive Data Percent cell count reference ranges are not reported, since discordance with absolute values may lead to misinterpretation of CBC data. Current Interpretive Data was last revised on 2017. Blood 05/29/2024 12:0 8 AM COMPUTER AIDED DESIGN DESIGNER 05/29/2024 12:51 AM COMPUTER AIDED DESIGN DESIGNER us Mark Clayton MD LAB BLOOD ORDERABLES Abbi malagon Result [facility] [place] [address] * (ABNORMAL) CBC with auto differential (05/29/2024 12:08 AM COMPUTER AIDED DESIGN DESIGNER) [facility] WBC 8.0 3.8 - 9.9 K/cumm Hgb 13.9 11.9 - 15.5 g/dL [facility] Hct 41.4 35.6 - 45.5 % [facility] Plt 246 150 - 400 K/cumm [facility] MPV 10.5 9.1 - 12.3 fL [facility] RBC 5.11 3.90 - 5.20 M/cumm [facility] MCV 81.0(L) 81.3 - 96.4 fL [facility] MCH 27.2 27.1 - 33.3 pg [facility] MCHC 33.6 32.3 - 35.7 g/dL [facility] RDW CV 13.8 11.1 - 14.9 % [facility] RDW SD 40.7 35.7 - 48.1 fL [facility] NRBC abs 0.00 0.00 - 0.01 K/cumm [facility] Blood 05/29/2024 12:0 8 AM COMPUTER AIDED DESIGN DESIGNER 05/29/2024 12:51 AM COMPUTER AIDED DESIGN DESIGNER us Mark Clayton MD LAB BLOOD ORDERABLES Abbi l Result Performing Organization Address [facility] Co de Phone Number [facility] [place] [address] * Magnesium (05/29/2024 12:08 AM COMPUTER AIDED DESIGN DESIGNER) [facility] Magnesium 1.9 1.4 - 2.5 mg/dL Blood 05/29/2024 12:0 8 AM COMPUTER AIDED DESIGN DESIGNER 05/29/2024 12:51 AM COMPUTER AIDED DESIGN DESIGNER Mark Clayton MD LAB BLOOD ORDERABLES Abbi l Result [facility] [place] [address] * Hepatic function panel (05/29/2024 12:08 AM COMPUTER AIDED DESIGN DESIGNER) Pathologist [facility] Bilirubin, total 0.5 0.1 - 1.2 mg/dL Bilirubin, direct 0.2 0.1 - 0.3 mg/dL [facility] Protein, pl 7.7 6.5 - 8.5 g/dL [facility] Albumin 3.7 3.5 - 5.0 g/dL [facility] Alk phos 129 40 - 130 Units/L [facility] ALT 34 7 - 45 Units/L [facility] AST 42 10 - 45 Units/L [facility] Blood 05/29/2024 12:0 8 AM COMPUTER AIDED DESIGN DESIGNER 05/29/2024 12:51 AM COMPUTER AIDED DESIGN DESIGNER Mark Clayton MD LAB BLOOD ORDERABLES Abbi l Result [facility] Department [place] [address] * Basic metabolic panel (05/29/2024 12:08 AM COMPUTER AIDED DESIGN DESIGNER) Pathologist [facility] Sodium 141 135 - 145 mmol/L Potassium, pl 4.1 3.3 - 4.9 mmol/L [facility] Chloride 101 97 - 110 mmol/L [facility] CO2 30 22 - 32 mmol/L [facility] Anion gap 10 2 - 15 mmol/L [facility] BUN 9 6 - 25 mg/dL [facility] Creatinine 0.80 0.60 - 1.10 mg/dL [facility] Glucose 107 70 - 199 mg/dL [facility] Comment: Interpretive Data Fasting glucose >/= 126 [...] 2022. Calcium 9.8 8.5 - 10.3 mg/dL [facility] Blood 05/29/2024 12:0 8 AM COMPUTER AIDED DESIGN DESIGNER 05/29/2024 12:51 AM COMPUTER AIDED DESIGN DESIGNER Mark Clayton MD LAB BLOOD ORDERABLES Abbi malagon Result Performing Organization Address [facility] Co de Phone Number [facility] [place] [address] * (ABNORMAL) TSH receptor antibody (05/27/2024 8:59 PM COMPUTER AIDED DESIGN DESIGNER) [facility] TSH receptor ab 8.08(H) 0.00 - 1.75 IUnits/L [facility] Comment: ADDITIONAL INFORMATION At a decision limit of 1.75 IU/L, this assay has 97% sensitivity and 99% specificity for detection of Graves' disease. In healthy individuals and in patients with thyroid disease without diagnosis of Graves' disease, the upper limit of anti-TSHR values are 1.22 IU/L and 1.58 IU/L, respectively (97.5th percentiles). Test Performed by: [place] [address] Cub Reporter: Martínez Andre Ph.D.; CLIA# [id number] Blood 05/27/2024 8:59 PM COMPUTER AIDED DESIGN DESIGNER 05/28/2024 5:20 PM COMPUTER AIDED DESIGN DESIGNER Mark Clayton MD LAB BLOOD ORDERABLES Abbi l Result Performing Organization Address [facility] Co de Phone Number [facility] Department [place] [address] [facility] * eGFR (05/27/2024 8:58 PM COMPUTER AIDED DESIGN DESIGNER) [facility] eGFR >90 >=60 mL/min/1. 73 m2 Comment: [...] last reviewed 2021. Blood 05/27/2024 8:58 PM COMPUTER AIDED DESIGN DESIGNER 05/27/2024 9:49 PM COMPUTER AIDED DESIGN DESIGNER us Mark Clayton MD LAB BLOOD ORDERABLES Abbi malagon Result [facility] Department [place] [address] * Differential, auto (05/27/2024 8:58 PM COMPUTER AIDED DESIGN DESIGNER) Pathologist [facility] Neutrophil abs 2.6 1.5 - 6.5 K/cumm Imm gran abs 0.0 0.0 - 0.1 K/cumm [facility] Lymphocyte abs 2.0 0.8 - 3.3 K/cumm [facility] Monocyte abs 0.5 0.2 - 0.8 K/cumm [facility] Eosinophil abs 0.2 0.0 - 0.5 K/cumm [facility] Basophil abs 0.1 0.0 - 0.1 K/cumm [facility] Neutrophil pct 49.1 % [facility] Comment: Interpretive Data Percent cell count reference ranges are not reported, since discordance with absolute values may lead to misinterpretation of CBC data. Current Interpretive Data was last revised on 2017. Imm gran pct 0.4 % [facility] Comment: Interpretive Data Percent cell count reference ranges are not reported, since discordance with absolute values may lead to misinterpretation of CBC data. Current Interpretive Data was last revised on 2017. Lymphocyte pct 37.8 % [facility] Comment: Interpretive Data Percent cell count reference ranges are not reported, since discordance with absolute values may lead to misinterpretation of CBC data. Current Interpretive Data was last revised on 2017. Monocyte pct 8.6 % [facility] Comment: Interpretive Data Percent cell count reference ranges are not reported, since discordance with absolute values may lead to misinterpretation of CBC data. Current Interpretive Data was last revised on 2017. Eosinophil pct 3.1 % [facility] Comment: Interpretive Data Percent cell count reference ranges are not reported, since discordance with absolute values may lead to misinterpretation of CBC data. Current Interpretive Data was last revised on 2017. Basophil pct 1.0 % [facility] Comment: Interpretive Data Percent cell count reference ranges are not reported, since discordance with absolute values may lead to misinterpretation of CBC data. Current Interpretive Data was last revised on 2017. Blood 05/27/2024 8:58 PM COMPUTER AIDED DESIGN DESIGNER 05/27/2024 9:50 PM COMPUTER AIDED DESIGN DESIGNER us Mark Clayton MD LAB BLOOD ORDERABLES Abbi malagon Result Performing Organization Address City/State/[facility] Co de Phone Number [facility] Department [place] [address] * (ABNORMAL) CBC with auto differential (05/27/2024 8:58 PM COMPUTER AIDED DESIGN DESIGNER) WBC 5.2 3.8 - 9.9 K/cumm Hgb 13.2 11.9 - 15.5 g/dL [facility] Hct 38.7 35.6 - 45.5 % [facility] Plt 241 150 - 400 K/cumm [facility] MPV 10.7 9.1 - 12.3 fL [facility] RBC 4.85 3.90 - 5.20 M/cumm [facility] MCV 79.8(L) 81.3 - 96.4 fL [facility] MCH 27.2 27.1 - 33.3 pg [facility] MCHC 34.1 32.3 - 35.7 g/dL [facility] RDW CV 14.0 11.1 - 14.9 % [facility] RDW SD 40.8 35.7 - 48.1 fL [facility] NRBC abs 0.00 0.00 - 0.01 K/cumm [facility] Blood 05/27/2024 8:58 PM COMPUTER AIDED DESIGN DESIGNER 05/27/2024 9:50 PM COMPUTER AIDED DESIGN DESIGNER Mark Clayton MD LAB BLOOD ORDERABLES Abbi l Result Performing Organization Address [facility]/ZIP Co de Phone Number [facility] Department [place] [address] * (ABNORMAL) Thyroid peroxidase antibody (TPO) (05/27/2024 8:58 PM COMPUTER AIDED DESIGN DESIGNER) Anti Thyroid Peroxidase 105(H) <=34 IUnits/mL Comment: ATPO Interpretive Data Results may be up to 28% higher in patients receiving Itraconazole. Current interpretive data was last revised 2020. Blood 05/27/2024 8:58 PM COMPUTER AIDED DESIGN DESIGNER 05/27/2024 9:49 PM COMPUTER AIDED DESIGN DESIGNER us Mark Clayton MD LAB BLOOD ORDERABLES Abbi l Result [facility] Department [place] [address] * (ABNORMAL) Thyroid stimulating immunoglobulin (05/27/2024 8:58 PM COMPUTER AIDED DESIGN DESIGNER) TSIG 2.5(H) <=1.3 [place] [facility] Comment: Test Performed by: [facility] [address] [place] [address] Cub Reporter: Martínez Andre Ph.D.; CLIA# [id number] Blood 05/27/2024 8:58 PM COMPUTER AIDED DESIGN DESIGNER 05/28/2024 4:58 PM COMPUTER AIDED DESIGN DESIGNER Mark Clayton MD LAB BLOOD ORDERABLES Abbi l Result Performing Organization Address City/[facility] Co de Phone Number [facility] [place] [address] [facility] * Magnesium (05/27/2024 8:58 PM COMPUTER AIDED DESIGN DESIGNER) [facility] Magnesium 1.7 1.4 - 2.5 mg/dL Blood 05/27/2024 8:58 PM COMPUTER AIDED DESIGN DESIGNER 05/27/2024 9:49 PM COMPUTER AIDED DESIGN DESIGNER Mark Clayton MD LAB BLOOD ORDERABLES Abbi l Result Performing Organization Address [facility] de Phone Number [facility] [place] [address] * (ABNORMAL) Basic metabolic panel (05/27/2024 8:58 PM COMPUTER AIDED DESIGN DESIGNER) [facility] Sodium 142 135 - 145 mmol/L Potassium, pl 3.9 3.3 - 4.9 mmol/L [facility] Chloride 104 97 - 110 mmol/L [facility] CO2 28 22 - 32 mmol/L [facility] Anion gap 10 2 - 15 mmol/L [facility] BUN 9 6 - 25 mg/dL [facility] Creatinine 0.56(L) 0.60 - 1.10 mg/dL [facility] Glucose 152 70 - 199 mg/dL [facility] Comment: Interpretive Data Fasting glucose >/= 126 [...] 2022. Calcium 9.4 8.5 - 10.3 mg/dL [facility] Blood 05/27/2024 8:58 PM COMPUTER AIDED DESIGN DESIGNER 05/27/2024 9:49 PM COMPUTER AIDED DESIGN DESIGNER us Mark Clayton MD LAB BLOOD ORDERABLES Abbi l Result Performing Organization Address City/[facility] Co de Phone Number [facility] Department [place] [address] * eGFR (05/27/2024 5:05 AM COMPUTER AIDED DESIGN DESIGNER) eGFR 88 >=60 mL/min/1. 73 m2 Comment: [...] last reviewed 2021. Blood 05/27/2024 5:05 AM COMPUTER AIDED DESIGN DESIGNER 05/27/2024 5:56 AM COMPUTER AIDED DESIGN DESIGNER us Claribel SHARMA LAB BLOOD ORDERABL ES Final Result Performing Organization Address [facility] Co de Phone Number [facility] Department [place] [address] * (ABNORMAL) Thyroid Function Evangeline (05/27/2024 5:05 AM COMPUTER AIDED DESIGN DESIGNER) [facility] TSH <0.01(L) 0.30 - 4.20 mcIUnit/mL Blood 05/27/2024 5:05 AM COMPUTER AIDED DESIGN DESIGNER 05/27/2024 5:56 AM COMPUTER AIDED DESIGN DESIGNER us Mark Clayton MD LAB BLOOD ORDERABLES Abbi l Result Performing Organization Address City/[facility]/ZIP Co de Phone Number [facility] [place] [address] * (ABNORMAL) CBC without differential (05/27/2024 5:05 AM COMPUTER AIDED DESIGN DESIGNER) [facility] WBC 4.5 3.8 - 9.9 K/cumm Hgb 12.4 11.9 - 15.5 g/dL [facility] Hct 36.6 35.6 - 45.5 % [facility] Plt 232 150 - 400 K/cumm [facility] MPV 10.4 9.1 - 12.3 fL [facility] RBC 4.55 3.90 - 5.20 M/cumm [facility] MCV 80.4(L) 81.3 - 96.4 fL [facility] MCH 27.3 27.1 - 33.3 pg [facility] MCHC 33.9 32.3 - 35.7 g/dL [facility] RDW CV 14.0 11.1 - 14.9 % [facility] RDW SD 40.8 35.7 - 48.1 fL [facility] NRBC abs 0.00 0.00 - 0.01 K/cumm [facility] Blood 05/27/2024 5:05 AM COMPUTER AIDED DESIGN DESIGNER 05/27/2024 5:56 AM COMPUTER AIDED DESIGN DESIGNER us Claribel SHARMA LAB BLOOD ORDERABL ES Final Result Performing Organization Address City/[facility]/ZIP Co de Phone Number [facility] [place] [address] * (ABNORMAL) T3, free (05/27/2024 5:05 AM COMPUTER AIDED DESIGN DESIGNER) Free T3 6.2(H) 2.0 - 4.4 pg/mL Blood 05/27/2024 5:05 AM COMPUTER AIDED DESIGN DESIGNER 05/27/2024 5:56 AM COMPUTER AIDED DESIGN DESIGNER Mark Clayton MD LAB BLOOD ORDERABLES Abbi l Result Performing Organization Address City/[facility] Co de Phone Number [facility] [place] [address] * (ABNORMAL) T4, free (05/27/2024 5:05 AM COMPUTER AIDED DESIGN DESIGNER) Free T4 2.83(H) 0.90 - 1.70 ng/dL Blood 05/27/2024 5:05 AM COMPUTER AIDED DESIGN DESIGNER 05/27/2024 5:56 AM COMPUTER AIDED DESIGN DESIGNER Narrative [facility] - 05/27/2024 9:51 AM COMPUTER AIDED DESIGN DESIGNER This test was reflexed from a TSH result. Mark Clayton MD LAB BLOOD ORDERABLES Edit ed Result - Final Performing Organization Address [facility] Co de Phone Number [facility] [place] [address] * Magnesium (05/27/2024 5:05 AM COMPUTER AIDED DESIGN DESIGNER) [facility] Magnesium 1.8 1.4 - 2.5 mg/dL Blood 05/27/2024 5:05 AM COMPUTER AIDED DESIGN DESIGNER 05/27/2024 5:56 AM COMPUTER AIDED DESIGN DESIGNER Mark Clayton MD LAB BLOOD ORDERABLES Abbi l Result Performing Organization Address [facility] Co de Phone Number [facility] [place] [address] * (ABNORMAL) Renal function panel (05/27/2024 5:05 AM COMPUTER AIDED DESIGN DESIGNER) Sodium 144 135 - 145 mmol/L Potassium, pl 3.8 3.3 - 4.9 mmol/L [facility] Chloride 108 97 - 110 mmol/L [facility] CO2 29 22 - 32 mmol/L [facility] Anion gap 7 2 - 15 mmol/L [facility] BUN 7 6 - 25 mg/dL [facility] Creatinine 0.65 0.60 - 1.10 mg/dL [facility] Glucose 119 70 - 199 mg/dL [facility] Comment: Interpretive Data Fasting glucose >/= 126 [...] 2022. Calcium 9.6 8.5 - 10.3 mg/dL [facility] Phosphorus, pl 3.3 2.3 - 4.5 mg/dL [facility] Albumin 3.1(L) 3.5 - 5.0 g/dL [facility] Blood 05/27/2024 5:05 AM COMPUTER AIDED DESIGN DESIGNER 05/27/2024 5:56 AM COMPUTER AIDED DESIGN DESIGNER Claribel SHARMA LAB BLOOD ORDERABL ES Final Result [facility] Department [place] [address] * XR Orthopantogram Panorex (05/26/2024 5:44 PM COMPUTER AIDED DESIGN DESIGNER) Anatomical Region Laterality Modality Head and Neck N/A Panoramic X-Ray 05/26/2024 6:49 PM COMPUTER AIDED DESIGN DESIGNER Impressions 05/26/2024 6:49 PM COMPUTER AIDED DESIGN DESIGNER 1. Periapical lucencies involving the 2 left most maxillary teeth and the right most maxillary tooth. Electronically signed by: Nathan Barrow D.O. Narrative 05/26/2024 6:49 PM COMPUTER AIDED DESIGN DESIGNER EXAMINATION: XR ORTHOPANTOGRAM/PANOREX HISTORY: dental pain/ abscess COMPARISON: None FINDINGS: Multiple dental restorations are noted and multiple teeth are missing. Periapical lucencies involving the 2 leftmost maxillary teeth and the right most maxillary tooth. No acute fractures. Procedure Note Nathan Barrow DO - 05/26/2024 EXAMINATION: XR ORTHOPANTOGRAM/PANOREX HISTORY: dental pain/ abscess COMPARISON: None FINDINGS: Multiple dental restorations are noted and multiple teeth are missing. Periapical lucencies involving the 2 leftmost maxillary teeth and the right most maxillary tooth. No acute fractures. IMPRESSION: 1. Periapical lucencies involving the 2 left most maxillary teeth and the right most maxillary tooth. Electronically signed by: Nathan Barrow D.O. Claribel SHARMA IMG XR PROCEDURES Final Result * eGFR (05/26/2024 11:50 AM COMPUTER AIDED DESIGN DESIGNER) eGFR >90 >=60 mL/min/1. 73 m2 Comment: [...] reviewed 2021. Blood 05/26/2024 11:5 0 AM COMPUTER AIDED DESIGN DESIGNER 05/26/2024 12:05 PM COMPUTER AIDED DESIGN DESIGNER Claribel SHARMA LAB BLOOD ORDERABL ES Final Result Performing Organization Address [facility] Co de Phone Number [facility] [place] [address] * aPTT (05/26/2024 11:50 AM COMPUTER AIDED DESIGN DESIGNER) aPTT 28 28 - 38 sec Comment: Interpretive Data Heparin therapeutic range: 66.0 - 100.0 seconds. Range based on correlation with therapeutic heparin activity range of 0.3 - 0.7 Units/mL. Current interpretive data was last revised on 2023. Blood 05/26/2024 11:5 0 AM COMPUTER AIDED DESIGN DESIGNER 05/26/2024 11:57 AM COMPUTER AIDED DESIGN DESIGNER Narrative [facility] - 05/26/2024 12:27 PM COMPUTER AIDED DESIGN DESIGNER Baseline prior to enoxaparin initiation. Claribel SHARMA LAB BLOOD ORDERABL ES Final Result Performing Organization Address [facility] Co de Phone Number [facility] [place] [address] * (ABNORMAL) Protime-INR (05/26/2024 11:50 AM COMPUTER AIDED DESIGN DESIGNER) PT 15.8(H) 9.7 - 13.0 sec INR 1.45(H) 0.90 - 1.20 [facility] Comment: Interpretive data Oral anticoagulant therapeutic ranges: Venous thromboembolism prophylaxis or treatment: 2.0-3.0 CARDIOLOGY Standard range: 2.0-3.0 High-intensity range: 2.5-3.5 Refer to indication-specific guidelines for appropriate target ranges for prosthetic heart valve replacement. Current interpretive data was last revised on 2019. Blood 05/26/2024 11:5 0 AM COMPUTER AIDED DESIGN DESIGNER 05/26/2024 11:57 AM COMPUTER AIDED DESIGN DESIGNER Narrative [facility] - 05/26/2024 12:27 PM COMPUTER AIDED DESIGN DESIGNER Baseline prior to enoxaparin initiation. us Claribel SHARMA LAB BLOOD ORDERABL ES Final Result [facility] Department [place] [address] * (ABNORMAL) CBC without differential (05/26/2024 11:50 AM COMPUTER AIDED DESIGN DESIGNER) WBC 4.5 3.8 - 9.9 K/cumm Hgb 13.1 11.9 - 15.5 g/dL [facility] Hct 38.3 35.6 - 45.5 % [facility] Plt 248 150 - 400 K/cumm [facility] MPV 10.5 9.1 - 12.3 fL [facility] RBC 4.84 3.90 - 5.20 M/cumm [facility] MCV 79.1(L) 81.3 - 96.4 fL [facility] MCH 27.1 27.1 - 33.3 pg [facility] MCHC 34.2 32.3 - 35.7 g/dL [facility] RDW CV 14.1 11.1 - 14.9 % [facility] RDW SD 40.5 35.7 - 48.1 fL [facility] NRBC abs 0.00 0.00 - 0.01 K/cumm [facility] Blood 05/26/2024 11:5 0 AM COMPUTER AIDED DESIGN DESIGNER 05/26/2024 12:05 PM COMPUTER AIDED DESIGN DESIGNER Narrative [facility] - 05/26/2024 12:12 PM COMPUTER AIDED DESIGN DESIGNER Baseline prior to enoxaparin initiation. us Claribel SHARMA LAB BLOOD ORDERABL ES Final Result [facility] Department [place] [address] * (ABNORMAL) Creatinine (05/26/2024 11:50 AM COMPUTER AIDED DESIGN DESIGNER) Creatinine 0.57(L) 0.60 - 1.10 mg/dL Blood 05/26/2024 11:5 0 AM COMPUTER AIDED DESIGN DESIGNER 05/26/2024 12:05 PM COMPUTER AIDED DESIGN DESIGNER Narrative [facility] - 05/26/2024 12:35 PM COMPUTER AIDED DESIGN DESIGNER Baseline prior to enoxaparin initiation. Claribel SHARMA LAB BLOOD ORDERABL ES Final Result Performing Organization Address [facility] Co de Phone Number [facility] [place] [address] * Check Sample (05/26/2024 8:40 AM COMPUTER AIDED DESIGN DESIGNER) ABO Rh A Positive [facility] HC[facility] OTHER 05/26/2024 8:40 AM COMPUTER AIDED DESIGN DESIGNER 05/26/2024 8:56 AM COMPUTER AIDED DESIGN DESIGNER Audra Espinoza MD LAB BLOOD ORDERABLES Final Result Performing Organization Address [facility] de Phone Number [facility] [place] [address] [facility] * (ABNORMAL) aPTT (05/26/2024 8:09 AM COMPUTER AIDED DESIGN DESIGNER) aPTT 27(L) 28 - 38 sec Comment: Interpretive Data Heparin therapeutic range: 66.0 - 100.0 seconds. Range based on correlation with therapeutic heparin activity range of 0.3 - 0.7 Units/mL. Current interpretive data was last revised on 2023. Blood 05/26/2024 8:09 AM COMPUTER AIDED DESIGN DESIGNER 05/26/2024 8:18 AM COMPUTER AIDED DESIGN DESIGNER Audra Espinoza MD LAB BLOOD ORDERABLES Final Result Performing Organization Address [facility] Co de Phone Number [facility] [place] [address] * (ABNORMAL) Protime-INR (05/26/2024 8:09 AM COMPUTER AIDED DESIGN DESIGNER) PT 15.4(H) 9.7 - 13.0 sec INR 1.42(H) 0.90 - 1.20 [facility] Comment: Interpretive data Oral anticoagulant therapeutic ranges: Venous thromboembolism prophylaxis or treatment: 2.0-3.0 CARDIOLOGY Standard range: 2.0-3.0 High-intensity range: 2.5-3.5 Refer to indication-specific guidelines for appropriate target ranges for prosthetic heart valve replacement. Current interpretive data was last revised on 2019. Blood 05/26/2024 8:09 AM COMPUTER AIDED DESIGN DESIGNER 05/26/2024 8:18 AM COMPUTER AIDED DESIGN DESIGNER Audra Espinoza MD LAB BLOOD ORDERABLES Final Result Performing Organization Address [facility] Co de Phone Number [facility] [place] [address] * Type and screen (05/26/2024 8:09 AM COMPUTER AIDED DESIGN DESIGNER) Jennifer, indirect Negative ABO Rh A Positive [facility] Blood 05/26/2024 8:09 AM COMPUTER AIDED DESIGN DESIGNER 05/26/2024 8:19 AM COMPUTER AIDED DESIGN DESIGNER Narrative [facility] - 05/26/2024 9:03 AM COMPUTER AIDED DESIGN DESIGNER Has the patient had Daratumumab or Isatuximab in the past 6 months?->Unknown us Audra Espinoza MD LAB BLOOD BANK TEST ORDERAB LES Final Result Performing Organization Address [facility]/ZIP Co de Phone Number [facility] Department [place] [address] * (ABNORMAL) ECG 12-LEAD (05/26/2024 7:31 AM COMPUTER AIDED DESIGN DESIGNER) Narrative [facility] - 05/26/2024 7:31 AM COMPUTER AIDED DESIGN DESIGNER Audra Espinoza MD 05/26/2024 7:32 AM ECG [...] Lechuga MD ECG ORDERABLES Final Res ult [facility] * Sepsis Lactate w/ Reflex (05/25/2024 11:18 PM COMPUTER AIDED DESIGN DESIGNER) Sepsis Lactate 0.9 0.7 - 2.0 mmol/L Blood 05/25/2024 11:1 8 PM COMPUTER AIDED DESIGN DESIGNER 05/25/2024 11:22 PM COMPUTER AIDED DESIGN DESIGNER us Tash Fink MD LAB BLOOD ORDERABLES Abbi l Result [facility] ([facility] 1 [facility] [place] [address] * (ABNORMAL) Protime-INR (05/25/2024 11:18 PM COMPUTER AIDED DESIGN DESIGNER) PT 15.7(H) 9.7 - 13.0 sec [facility] ([place]) INR 1.44(H) 0.90 - 1.20 [facility] ([place]) Comment: Interpretive data Oral anticoagulant therapeutic ranges: Venous thromboembolism prophylaxis or treatment: 2.0-3.0 CARDIOLOGY Standard range: 2.0-3.0 High-intensity range: 2.5-3.5 Refer to indication-specific guidelines for appropriate target ranges for prosthetic heart valve replacement. Current interpretive data was last revised on 2019. Blood 05/25/2024 11:1 8 PM COMPUTER AIDED DESIGN DESIGNER 05/25/2024 11:22 PM COMPUTER AIDED DESIGN DESIGNER Tash Fink MD LAB BLOOD ORDERABLES Abbi l Result [facility] ([place]) 1 [facility] [place] [address] * Blood culture Blood Peripheral (05/25/2024 10:52 PM COMPUTER AIDED DESIGN DESIGNER) Report Final Report: No growth Comment:Testing performed by : [facility], [address] [place] [address] Blood (Peripheral) 05/25/2024 10:52 PM COMPUTER AIDED DESIGN DESIGNER 05/26/2024 2:42 AM COMPUTER AIDED DESIGN DESIGNER Narrative [facility] RAMIRE[facility] ([place]) - 05/30/2024 7:01 AM COMPUTER AIDED DESIGN DESIGNER From a different site than #1. Draw [...] performance characteristics have been verified by the [facility]. For questions about this culture, contact the Microbiology Laboratory at [phone]. Interpretive data was last revised on 24. us Tash Fink MD LAB MICROBIOLOGY - GENERA L ORDERABLES Final Result [facility] ([place]) 1 [facility] Department [place] [address] * Blood culture Blood Peripheral (05/25/2024 10:52 PM COMPUTER AIDED DESIGN DESIGNER) Report Final Report: No growth Comment:Testing performed by : [facility], [address] [facility] [place]., [address] Blood (Peripheral) 05/25/2024 10:52 PM COMPUTER AIDED DESIGN DESIGNER 05/26/2024 2:42 AM COMPUTER AIDED DESIGN DESIGNER Narrative [facility] ([place]) - 05/30/2024 7:01 AM COMPUTER AIDED DESIGN DESIGNER Draw Blood cultures before administration of Antibiotics [...] performance characteristics have been verified by the [facility]. For questions about this culture, contact the Microbiology Laboratory at [phone]. Interpretive data was last revised on 24. us Tash Fink MD LAB MICROBIOLOGY - GENERA L ORDERABLES Final Result JCARLSO RMAIREZ [place]) 1 [facility] [place] [address] * CT Neck Soft Tissue W Contrast (05/25/2024 8:28 PM COMPUTER AIDED DESIGN DESIGNER) Anatomical Region Laterality Modality Head and Neck N/A Computed Tomogra phy 05/25/2024 9:19 PM COMPUTER AIDED DESIGN DESIGNER Narrative 05/25/2024 9:30 PM COMPUTER AIDED DESIGN DESIGNER EXAM DESCRIPTION: CT SOFT TISSUE NECK W [...] parotid glands are obscured by severe dental tenriism related artifact. The bilateral submandibular glands enhance [...] immunosuppression, or patients with known primary cancer. http://pubs.rsna.org/doi/pdf/10.1148/radiol.3339988159 THIS IS AN ELECTRONICALLY VERIFIED FINAL REPORT 05/25/2024 9:30 PM - Electronically signed by Isaiah Mcneil D.O. AP: AP Report ID: [id number] Reading Location: [id number] Procedure Note Isaiah Mcneil, DO - 05/25/2024 [...] parotid glands are obscured by severe dental tenriism related artifact. The bilateral submandibular glands enhance [...] withimmunosuppression, or patients with known primary cancer. http://pubs.rsna.org/doi/pdf/10.1148/radiol.2446726356 THIS IS AN ELECTRONICALLY VERIFIED FINAL REPORT 05/25/2024 9:30 PM - Electronically signed by Isaiah Mcneil D.O. AP: AP Report ID: [id number] Reading Location: [place] [address] us Tash Fink MD IMG CT PROCEDURES Final R esult * eGFR (05/25/2024 6:52 PM COMPUTER AIDED DESIGN DESIGNER) eGFR 82 >=60 mL/min/1. 73 m2 Comment: [...] last reviewed 2021. Blood 05/25/2024 6:52 PM COMPUTER AIDED DESIGN DESIGNER 05/25/2024 6:55 PM COMPUTER AIDED DESIGN DESIGNER us Tash Fink MD LAB BLOOD ORDERABLES Abbi malagon Result [facility] ([place]) 1 [facility] [place] [address] * Differential, auto (05/25/2024 6:52 PM COMPUTER AIDED DESIGN DESIGNER) Neutrophil abs 3.1 1.5 - 6.5 K/cumm Imm gran abs 0.0 0.0 - 0.1 K/cumm [facility] ([place]) Lymphocyte abs 1.7 0.8 - 3.3 K/cumm [...] revised on 2017. Blood 05/25/2024 6:52 PM COMPUTER AIDED DESIGN DESIGNER 05/25/2024 6:55 PM COMPUTER AIDED DESIGN DESIGNER Tash Fink MD LAB BLOOD ORDERABLES Abbi l Result [facility] ([place]) 1 [facility] Department of Laboratories [place], [place] [id number] * (ABNORMAL) CBC with auto differential (05/25/2024 6:52 PM COMPUTER AIDED DESIGN DESIGNER) WBC 5.4 3.8 - 9.9 K/cumm Hgb 13.0 11.9 - 15.5 g/dL [facility] ([place]) Hct 38.3 35.6 - 45.5 % [facility] ([place]) Plt 258 150 - 400 K/cumm [facility] ([place]) MPV 10.1 9.1 - 12.3 fL [facility] ([place]) RBC 4.75 3.90 - 5.20 M/cumm [facility] ([place]) MCV 80.6(L) 81.3 - 96.4 fL [facility] [facility] ([facility]) MCH 27.4 27.1 - 33.3 pg [facility] MCHC 33.9 32.3 - 35.7 g/dL [facility] RDW CV 13.9 11.1 - 14.9 % [facility] RDW SD 41.2 35.7 - 48.1 fL [facility] NRBC abs 0.00 0.00 - 0.01 K/cumm [facility] ([facility]) Blood 05/25/2024 6:52 PM COMPUTER AIDED DESIGN DESIGNER 05/25/2024 6:55 PM COMPUTER AIDED DESIGN DESIGNER Tash Fink MD LAB BLOOD ORDERABLES Abbi l Result [facility] ([facility]) 1 [facility] Department [place] [address] * Comprehensive metabolic panel (05/25/2024 6:52 PM COMPUTER AIDED DESIGN DESIGNER) Sodium 136 135 - 145 mmol/L Potassium, pl 3.8 3.3 - 4.9 mmol/L [facility] ([facility]) Chloride 100 97 - 110 mmol/L [facility]) CO2 27 22 - 32 mmol/L [facility] Anion gap 9 2 - 15 mmol/L [facility] ([facility]) BUN 18 6 - 25 mg/dL [facility] ([facility]) Creatinine 0.73 0.60 - 1.10 mg/dL [facility]) Glucose 98 70 - 199 mg/dL [facility] ([facility]) Comment: Interpretive Data Fasting glucose [...] [facility]) Blood 05/25/2024 6:52 PM COMPUTER AIDED DESIGN DESIGNER 05/25/2024 6:55 PM COMPUTER AIDED DESIGN DESIGNER Tash Fink MD LAB BLOOD ORDERABLES Abbi l Result [facility] ([facility] 1 [facility] Department [place] [address] from Last 3 Months Additional Health Concerns Active Problems Noted Date Diagnosed Date Initial Follow-Up Appointment 05/30/2024 Note: Pt hospitalized for oral abscess, A.Fib, and hyperthyroidism. Hx HTN. Epic risk 11 Barriers to Medication Adherence 05/30/2024 Insurance A[employer] MEDICARE AETNA MEDICARE Advance Directives For more information, please contact: [phone] * LIMITED - No CPR (Latest Code Status on File) Date Activated Date Inactivated Comments 05/26/2024 11:11 AM 05/29/2024 6:50 PM Question Answer Comments Provide aggressive medical m anagement before a full cardiopulmonary arrest occurs. Use antibiotics, IV Fluids, and medical treatment unless specifically selected below: No intubation Care Teams Museum Curator Relationship Specialty Start Date End Date Kuldip Watt DO [address] [place] [address] PCP - General Family Medicine 05/25/24 Audra Berry, RN [id number] [address] [facility] Outpatient Insurance Agency Sales Manager 05/30/24
--- OUTSIDE RECORDS SUMMARY | 2024-06-25 14:21 | XMS_ITS | Clinical Summary ---
Author Organization [facility] Address [facility] [place] [address] Care Team Providers Care Associate Java Developer Name Role Phone GeminiKuldip walsh Primary Care Provider [phone] Allergies Active Allergy Reactions Criticality Noted Date Comments Amlodipine Itching Medium 06/01/2022 Medications Cyanocobalamin (VITAMIN B-12) 50 MCG Tab Take 25 mcg by mouth daily. Active Cholecalciferol (VITAMIN D) 50 MCG (1999 UT) Tab Take 1 tablet (50 mcg total) by mouth daily. Active metoprolol tartrate (LOPRESSOR) 25 MG tablet Take 1 tablet (25 mg total) by mouth 2 (two) times daily. 02/26/2022 Active oyster shell calcium 500 mg, elemental, (OSCAL) 500 MG tablet Take 1 tablet (500 mg total) by mouth daily. Active losartan-hydroCH LOROthiazide (HYZAAR) 100-12.5 MG tablet Take 1 tablet by mouth daily. 06/08/2022 Active naproxen (NAPROSYN) 250 MG tablet Take 1 tablet (250 mg total) by mouth 2 (two) times daily as needed. Active Active Problems Problem Noted Date Diagnosed Date Aftercare following left knee joint replacement surgery 03/22/2022 Status post total left knee replacement 03/08/20 22 Primary osteoarthritis of left knee 02/19/2022 Overview (02/19/2022): Added automatically from request for surgery [id number] Bilateral knee pain 02/04/2022 Family History Medical History Relation Comments Cancer Father Relation Status Comments Father Mother Social History Tobacco Use Types Packs/Day Years Used Date Smoking Tobacco: Never Smokeless Tobacco: Never Tobacco Cessation:Counseling Given: Not Answered Alcohol Use Standard Drinks/Week Comments Never 0 (1 standard drink = 0.6 oz pur e alcohol) Comments No Sex and Gender Information Value Date Recorded Sex Assigned at Not on file Legal Sex Female 5:57 PM TREE TRIMMING SUPERVISOR Gender Identity Not on file Sexual Orientation Not on file Last Filed Vital Signs Vital Sign Reading Time Taken Comments Blood Pressure 136/71 03/09/2022 1:14 PM TREE TRIMMING SUPERVISOR Pulse 69 03/09/2022 1:14 PM TREE TRIMMING SUPERVISOR Temperature 36.3 C (97.3 F) 03/09/2022 1:14 PM TREE TRIMMING SUPERVISOR Respiratory Rate 16 03/09/2022 1:14 PM TREE TRIMMING SUPERVISOR Oxygen Saturation 96% 03/09/2022 1:14 PM TREE TRIMMING SUPERVISOR Inhaled Oxygen Concentration - - Weight 64.4 kg (142 lb) 11/30/2022 9:56 AM CDT Height 149.9 cm (4' 11 ) 11/30/2022 9:56 AM CDT Body Mass Index 28.68 11/30/2022 9:56 AM CDT Plan of Treatment Health Maintenance Due Date Last Done Comments DTaP, Tdap and Td Vaccines ( 1 - Tdap) 1959 Annual Medicare Wellness Visit 2007 Dexa Scan (General) 2007 Pneumococcal Vaccine: 65+ Ye ars (1 of 1 - PCV) 2007 Zoster Vaccines (2 of 3) 06/12/2013 04/17/2013 RSV Immunization or 60+ Years (1 - 1-dose 75+ series) 2017 COVID-19 Vaccine (2023-2 5 season) 2023 Influenza Adult (#1) 2024 Meningococcal B Vaccine Aged Out No l onger eligible based on patient's age to complete this topic Meningococcal Vaccine Aged Out No deedee shravan eligible based on patient's age to complete this topic RSV Immunizations Under 20 Months Aged Out No longer eligible based on patient's age to complete this topic Goals Goal Patient Goal Type Associated Problems Recent Progress Patient-Stated? Author Patient will return to prior living situation and remain independent in ADLs upon discharge from hospital Lifestyle No Karina Gong RN Medical Devices Implanted Type Area Smart Grid Engineer Device Identifier Shelf Expiration Date Model / Serial / Lot Cement Simplex Hv W/Gentamicin - [id number] Implanted:Qty: 1 on 03/08/2022 by Franky Layton MD at [facility] Cement Implant Left: Knee [employer] DIV [employer]US TY 07/17/2023 [id number] D Cement Simplex Hv W/Gentamicin - [id number] Implanted:Qty: 1 on 03/08/2022 by Franky Layton MD at [facility] Cement Implant Left: Knee [employer] 07/17/2023 [id number] D Attune Femoral Cruciate Retaining Implanted:Qty: 1 on 03/08/2022 by Franky Layton MD at [facility] Left: Knee [employer] 09/16/2031 1504-00-1 05 / / [id number] Attune Knee System Revision Tibial Base Fixed Bearing Implanted:Qty: 1 on 03/08/2022 by Franky Layton MD at [facility] Left: Knee [employer] [id number] 12/17/2031 1506-40-0 05 / / [id number] Attune Patella Medialized Dome Implanted:Qty: 1 on 03/08/2022 by Franky Layton MD at [facility] Left: Knee [employer] 06/15/2026 1518-20-0 32 / / [id number] Attune Knee System Tibial Insert Fixed Bearing Cruciate Retaining Implanted:Qty: 1 on 03/08/2022 by Franky Layton MD at [facility] Left: Knee 06/15/2026 1516-20-5 08 / / [id number] Insurance AETNA Advance Directives Documents on File Type Date Recorded Patient Loop Puller Expl anation Advance Directives and Living Will 03/10/2022 8:15 AM 06/25/2014 POA FOR HEALTH CARE Care Teams Associate Java Developer Relationship Specialty Start Date End Date Kuldip Watt DO [address] [place] [address] PCP - General FAMILY PRACTICE 02/22/22
== END 2024-06-25 12:27 | disposition home or self-care (01) ==
LOC: CHSIMG 12:28
PROVIDERS: PCP Family Medicine
DX: Z78.0 Asymptomatic menopausal state (principal); M85.89 Other specified disorders of bone density and structure, multiple sites
CPT/HCPCS: 77080

== ENCOUNTER 2024-08-06 08:09 | Outpatient (CLI) | payer MEDICARE, SELFPAY ==
--- OUTSIDE RECORDS SUMMARY | 2024-08-06 08:35 | XMS_ITS | Referral Summary ---
Author Organization [facility] Address [address] [place] [address] Care Team Providers Care Windows Software Engineer Name Role Phone Kuldip Watt DO Primary Care Provider Encounters Date Type Department Care Team Description 06/26/2024 SHOP/CHAP Subsequent Outreach [facility] OP CASE MANAGEMENT [address] [place] [address] Audra Berry, RN 06/19/2024 SHOP/CHAP Subsequent Outreach [facility] OP CASE MANAGEMENT [address] [place] [address] Audra Berry, RN 06/15/2024 8:20 AM INDUSTRIAL TECH INSTRUCTOR Lab [facility] [address] [place] [address] Low TSH level 06/15/2024 10:40 AM INDUSTRIAL TECH INSTRUCTOR Office Visit [facility] Endocrinology Metabolism and Lipid [address] [facility] 13[address] [place] [address] [place] [address] Kika Goodman MD PhD Graves disease (Primary Dx); Other osteoporosis without current pathological fracture 06/11/2024 SHOP/CHAP Subsequent Outreach [facility] OP CASE MANAGEMENT [address] [place] [address] Audra Berry, RN 06/05/2024 SHOP/CHAP Subsequent Outreach [facility] OP CASE MANAGEMENT [address] [place] [address] Audra Berry RN 05/30/2024 SHOP/CHAP Initial Outreach [facility] OP CASE MANAGEMENT [address] [place] [address] Audra Berry RN 05/30/2024 SHOP/CHAP Initial Eligibility Review [facility] OP CASE MANAGEMENT [address] [place] [address] Audra Berry RN 05/26/2024 6:57 AM INDUSTRIAL TECH INSTRUCTOR - 05/29/2024 2:45 PM INDUSTRIAL TECH INSTRUCTOR Hospital Encounter [facility] [address] [place] [address] Audra Espinoza MD Dao, MD Calos Steel, MD Matilde Madrigal, MD Ayan Morin, Zaki Rich MD Submandibular abscess (Primary Dx); Chronic atrial fibrillation (HCC); Low TSH level Discharge Disposition: Discharge to home or self care 05/25/2024 9:22 PM INDUSTRIAL TECH INSTRUCTOR - 05/26/2024 4:37 AM INDUSTRIAL TECH INSTRUCTOR Emergency [facility] Emergency Department [address] [place] [address] Tash Fink MD Wala, Brown Acuña MD Dental abscess (Primary Dx); Submandibular abscess Discharge Disposition: Discharge to not defined facility from Last 3 Months Allergies Active Allergy Reactions Criticality Noted Date Comments Amoxicillin Vomiting Low 05/26/2024 Medications losartan-hydroCH LOROthiazide (HYZAAR) 100-12.5 mg per tablet Take 1 tablet by mouth daily 06/08/2022 Active CHOLECALCIFEROL, VITAMIN D3, ORAL Take 1 tablet by mouth daily Active CYANOCOBALAMIN, VITAMIN B-12, ORAL Take 1 tablet by mouth daily Active amLODIPine (NORVASC) 5 mg tablet Take 1 tablet (5 mg total) by mouth daily Active TURMERIC ORAL Take 1 tablet by mouth daily Active vit C/vit E ac/selenium/gink go (MEMORY COMPLEX ORAL) Take 1 tablet by mouth 2 (two) times a day Active VITAMIN C, ASCORBATE CALCIUM, ORAL Take 1 tablet by mouth daily Active chlorhexidine (PERIDEX) 0.12 % oral rinse Swish and spit 15 mL 4 (four) times a day 120 mL 05/29/2024 Active apixaban (ELIQUIS) 5 mg tablet Take 1 tablet (5 mg total) by mouth 2 (two) times a day 60 tablet 1 05/29/2024 Active methIMAzole (TAPAZOLE) 10 mg tabletIndication s:Graves disease Take 1 tablet (10 mg total) by mouth daily 90 tablet 3 06/15/2024 Active metoprolol XL (TOPROL-XL) 50 mg extended release tabletIndication s:Graves disease Take 1 tablet (50 mg total) by mouth daily 90 tablet 3 06/15/2024 Active Active Problems Problem Noted Date Diagnosed Date Low TSH level 05/27/2024 Assessment & Plan (05/29/2024 12:05 PM INDUSTRIAL TECH INSTRUCTOR): - in workup for Afib noted TSH [...] 05/26/2024 Assessment & Plan (05/29/2024 12:01 PM INDUSTRIAL TECH INSTRUCTOR): - ENT was consulted from ED and [...] 05/26/2024 Assessment & Plan (05/26/2024 11:19 AM INDUSTRIAL TECH INSTRUCTOR): -continue home losartan hctz -ctm Atrial fibrillation 05/26/2024 Assessment & Plan (05/29/2024 12:03 PM INDUSTRIAL TECH INSTRUCTOR): - EKG with AF w rate 114 - Per daughter at bedside 05/26, this is not a new diagnosis but pt denies. On clarification 05/27, daughter says that it was another family member and the patient has not had prior dx of afib Patient has not been on anticoagulation in the past. 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 No sig bleeding hx or hx [...] 05/26/2024 Assessment & Plan (05/26/2024 11:20 AM INDUSTRIAL TECH INSTRUCTOR): Pulmonary nodules, for example right upper lobe [...] (05/26/2024): Added automatically from request for surgery [id number] Bilateral knee pain 02/04/2022 Immunizations Immunization Administration Dates Next Due ZOSTER LIVE 04/17/2013 Social History Tobacco Use Types Packs/Day Years Used Date Smoking Tobacco: Unknown Tobacco Cessation:Counseling Given: Not Answered [facility] Utilities Answer Date Recorded In the past 12 months has th e [employer], gas, oil, or water company threatened to shut off services in your [...] often do you attend chur ch or christianity services? More than 4 times per year 05/30/2024 Do you belong to any clubs o r organizations such as voodoo groups, unions, fraternal or athletic groups, or [...] time in the past [address] [facility], were you homeless or living in a longterm (including now)? No 05/30/2024 Personal Safety Answer Date Recorded Have you ever been in or are you currently in a harmful physical or emotional relationship or is someone making you feel afraid or unsafe? Denies 05/26/2024 Comments Unknown Sex and Gender Information Value Date Recorded Sex Assigned at Not on file Legal Sex Female 5:17 PM INDUSTRIAL TECH INSTRUCTOR Gender Identity Not on file Sexual Orientation Not on file Last Filed Vital Signs Vital Sign Reading Time Taken Comments Blood Pressure 130/77 06/15/2024 10:17 AM INDUSTRIAL TECH INSTRUCTOR Pulse 107 06/15/2024 10:17 AM INDUSTRIAL TECH INSTRUCTOR Temperature 37 C (98.6 F) 06/15/2024 10:17 AM INDUSTRIAL TECH INSTRUCTOR Respiratory Rate 16 05/29/2024 2:25 PM INDUSTRIAL TECH INSTRUCTOR Oxygen Saturation 100% 05/29/2024 2:25 PM INDUSTRIAL TECH INSTRUCTOR Inhaled Oxygen Concentration - - Weight 54.3 kg (119 lb 12.8 oz) 025 10:17 AM INDUSTRIAL TECH INSTRUCTOR Height 149.9 cm (4' 11 ) 06/15/2024 10: 17 AM INDUSTRIAL TECH INSTRUCTOR Body Mass Index 24.2 06/15/2024 10:17 AM INDUSTRIAL TECH INSTRUCTOR Plan of Treatment Not on file Procedures Procedure Name Priority Date/Time Associated Diagnosis Comments T4, FREE Routine 06/15/2024 8:15 AM INDUSTRIAL TECH INSTRUCTOR Low TSH level THYROID FUNCTION CASCADE Routine 06/15/2024 8:15 AM INDUSTRIAL TECH INSTRUCTOR Low TSH level TRANSTHORACIC ECHO (TTE) COMPLETE W DOPPLER/CF WO CONTRAST Routine 05/29/2024 2:08 PM INDUSTRIAL TECH INSTRUCTOR EGFR Routine 05/29/2024 12:08 AM INDUSTRIAL TECH INSTRUCTOR DIFFERENTIAL AUTO Routine 05/29/2024 12: 08 AM INDUSTRIAL TECH INSTRUCTOR HEPATIC FUNCTION PANEL Routine 12:08 AM INDUSTRIAL TECH INSTRUCTOR MAGNESIUM Routine 05/29/2024 12:08 AM INDUSTRIAL TECH INSTRUCTOR CBC WITH AUTO DIFFERENTIAL Routine 05/29/2024 12:08 AM INDUSTRIAL TECH INSTRUCTOR BASIC METABOLIC PANEL Routine 05/29/2024 12:08 AM INDUSTRIAL TECH INSTRUCTOR TSH RECEPTOR ANTIBODY Routine 05/27/2024 8:59 PM INDUSTRIAL TECH INSTRUCTOR EGFR Routine 05/27/2024 8:58 PM INDUSTRIAL TECH INSTRUCTOR DIFFERENTIAL AUTO Routine 05/27/2024 8:5 8 PM INDUSTRIAL TECH INSTRUCTOR THYROID STIMULATING IMMUNOGLOBULIN Routine 05/27/2024 8:58 PM INDUSTRIAL TECH INSTRUCTOR THYROID PEROXIDASE ANTIBODY Routine 05/27/2024 8:58 PM INDUSTRIAL TECH INSTRUCTOR MAGNESIUM Routine 05/27/2024 8:58 PM INDUSTRIAL TECH INSTRUCTOR CBC WITH AUTO DIFFERENTIAL Routine 05/27/2024 8:58 PM INDUSTRIAL TECH INSTRUCTOR BASIC METABOLIC PANEL Routine 05/27/2024 8:58 PM INDUSTRIAL TECH INSTRUCTOR T3, FREE Routine 05/27/2024 5:05 AM INDUSTRIAL TECH INSTRUCTOR THYROID FUNCTION CASCADE Routine 05/27/2024 5:05 AM INDUSTRIAL TECH INSTRUCTOR T4, FREE Routine 05/27/2024 5:05 AM INDUSTRIAL TECH INSTRUCTOR MAGNESIUM Routine 05/27/2024 5:05 AM INDUSTRIAL TECH INSTRUCTOR EGFR Routine 05/27/2024 5:05 AM INDUSTRIAL TECH INSTRUCTOR RENAL FUNCTION PANEL Routine 05/27/2024 5:05 AM INDUSTRIAL TECH INSTRUCTOR CBC WITHOUT DIFFERENTIAL Routine 05/27/2024 5:05 AM INDUSTRIAL TECH INSTRUCTOR XR ORTHOPANTOGRAM/PANOREX IP Routine 05/26/2024 5:44 PM INDUSTRIAL TECH INSTRUCTOR EGFR STAT 05/26/2024 11:50 AM INDUSTRIAL TECH INSTRUCTOR CREATININE STAT 05/26/2024 11:50 AM INDUSTRIAL TECH INSTRUCTOR APTT STAT 05/26/2024 11:50 AM INDUSTRIAL TECH INSTRUCTOR CBC WITHOUT DIFFERENTIAL STAT 05/26/2024 11:50 AM INDUSTRIAL TECH INSTRUCTOR PROTIME-INR STAT 05/26/2024 11:50 AM INDUSTRIAL TECH INSTRUCTOR B CHECK SAMPLE STAT 05/26/2024 8:40 AM INDUSTRIAL TECH INSTRUCTOR APTT STAT 05/26/2024 8:09 AM INDUSTRIAL TECH INSTRUCTOR PROTIME-INR STAT 05/26/2024 8:09 AM INDUSTRIAL TECH INSTRUCTOR TYPE AND SCREEN STAT 05/26/2024 8:09 AM INDUSTRIAL TECH INSTRUCTOR ECG 12-LEAD Routine 05/26/2024 7:31 AM INDUSTRIAL TECH INSTRUCTOR PROTIME-INR STAT 05/25/2024 11:18 PM INDUSTRIAL TECH INSTRUCTOR SEPSIS LACTATE WITH REFLEX STAT 05/25/2024 11:18 PM INDUSTRIAL TECH INSTRUCTOR BLOOD CULTURE STAT 05/25/2024 10:52 PM INDUSTRIAL TECH INSTRUCTOR BLOOD CULTURE STAT 05/25/2024 10:52 PM INDUSTRIAL TECH INSTRUCTOR CT SOFT TISSUE NECK W CONTRAST ED 05/25/2024 8:28 PM INDUSTRIAL TECH INSTRUCTOR EGFR STAT 05/25/2024 6:52 PM INDUSTRIAL TECH INSTRUCTOR DIFFERENTIAL AUTO STAT 05/25/2024 6:5 2 PM INDUSTRIAL TECH INSTRUCTOR COMPREHENSIVE METABOLIC PANEL STAT 05/25/2024 6:52 PM INDUSTRIAL TECH INSTRUCTOR CBC WITH AUTO DIFFERENTIAL STAT 05/25/2024 6:52 PM INDUSTRIAL TECH INSTRUCTOR from Last 3 Months Results * (ABNORMAL) Thyroid Function [place] (06/15/2024 8:15 AM INDUSTRIAL TECH INSTRUCTOR) [facility] Signature TSH <0.01(L) 0.30 - 4.20 mcIUnit/mL Blood 06/15/2024 8:15 AM INDUSTRIAL TECH INSTRUCTOR 06/15/2024 8:31 AM INDUSTRIAL TECH INSTRUCTOR Zaki Botello MD LAB BLOOD ORDERABLES F inal Result Performing Organization Address [facility] [place] [address] * (ABNORMAL) T4, free (06/15/2024 8:15 AM INDUSTRIAL TECH INSTRUCTOR) Pathologist [facility] Free T4 1.99(H) 0.90 - 1.70 ng/dL Blood 06/15/2024 8:15 AM INDUSTRIAL TECH INSTRUCTOR 06/15/2024 8:36 AM INDUSTRIAL TECH INSTRUCTOR Narrative [facility] - 06/15/2024 9:35 AM INDUSTRIAL TECH INSTRUCTOR This test was reflexed from a TSH result. Zaki Botello MD LAB BLOOD ORDERABLES F inal Result Performing Organization Address [facility] [place] [address] * TRANSTHORACIC ECHO (TTE) COMPLETE W DOPPLER/CF WO CONTRAST (05/29/2024 2:08 PM INDUSTRIAL TECH INSTRUCTOR) Pathologist [facility] LV EF % CONS SCIMAGE Anatomical Region Laterality Modality Ultrasound 05/29/2024 12:5 5 PM INDUSTRIAL TECH INSTRUCTOR Narrative 05/29/2024 5:33 PM INDUSTRIAL TECH INSTRUCTOR [facility] [place] [address] Transthoracic Echocardiographic Report Patient Name: RAFA FIELDS : 1940 (84y ) Gender: F Study Date: 05/29/2024 12:55:15 PM Ht(Inch): 59 Wt(Lb): 134.92 BSA: 1.6 Acid Bath Mixer: Cony Solomon RDCS Location: [id number] Order Provider: MARK CLAYTON Heart Rate: 79 BMI: 27.25 BP: 133/90 Quality: The study images were of technically good quality. Ref Provider: MARK CLAYTON PROCEDURES: Echocardiographic Report: [id number]) Transthoracic complete echo with strain imaging, 2D, [...] By: Rony Arroyo MD 05/29/2024 3:43:24 PM INDUSTRIAL TECH INSTRUCTOR Electronically Signed By: Jorge Zavaleta MD 05/29/2024 5:32:47 PM INDUSTRIAL TECH INSTRUCTOR Procedure Note Jorge Zavaleta MD - 05/29/2024 [facility] Cardiac [place] [address] [place] [address] Transthoracic Echocardiographic Report Patient Name: RAFA FIELDS : 1940 (84y ) Gender: F Study Date: 05/29/2024 12:55:15 PM Ht(Inch): 59 Wt(Lb): 134.92 BSA: 1.6 Acid Bath Mixer: Cony Solomon [facility] Location: [id number] Order Provider:MARK CLAYTON Heart Rate: 79 BMI: 27.25 BP: 133/90 Quality: The study images were oftechnically good quality. Ref Provider: MARK CLAYTON PROCEDURES: Echocardiographic Report: ([id number]) Transthoracic complete echo withstrain imaging, 2D, spectral [...] cm [ 2.5 - 4.2 ] MR PQD689.8 cm TAPSE 1.18 cm [ 1.71 - [...] mmHg Asc Ao Index 2.03 cm/m2 PI BNA256.10 sec - COMPARISONS: There was no previous [...] By: Rony Arroyo MD 05/29/2024 3:43:24 PM INDUSTRIAL TECH INSTRUCTOR Electronically Signed By: Jorge Zavaleta MD 05/29/2024 5:32:47 PM INDUSTRIAL TECH INSTRUCTOR us Mark Clayton MD CV ECHO PROCEDURES Final Result * eGFR (05/29/2024 12:08 AM INDUSTRIAL TECH INSTRUCTOR) eGFR 74 >=60 mL/min/1. 73 m2 Comment: [...] reviewed 2021. Blood 05/29/2024 12:0 8 AM INDUSTRIAL TECH INSTRUCTOR 05/29/2024 12:51 AM INDUSTRIAL TECH INSTRUCTOR us Mrak Clayton MD LAB BLOOD ORDERABLES Abbi l Result [facility] Department [place] [address] * Differential, auto (05/29/2024 12:08 AM INDUSTRIAL TECH INSTRUCTOR) Neutrophil abs 5.3 1.5 - 6.5 K/cumm Imm gran abs 0.0 0.0 - 0.1 K/cumm [facility] Lymphocyte abs 2.0 0.8 - 3.3 K/cumm [facility] Monocyte abs 0.5 0.2 - 0.8 K/cumm [facility] Eosinophil abs 0.1 0.0 - 0.5 K/cumm [facility] Basophil abs 0.0 0.0 - 0.1 K/cumm [facility] Neutrophil pct 65.9 % [facility] Comment: Interpretive Data Percent cell count reference ranges are not reported, since discordance with absolute values may lead to misinterpretation of CBC data. Current Interpretive Data was last revised on 2017. Imm gran pct 0.4 % [facility] Comment: Interpretive Data Percent cell count reference ranges are not reported, since discordance with absolute values may lead to misinterpretation of CBC data. Current Interpretive Data was last revised on 2017. Lymphocyte pct 25.3 % [facility] Comment: Interpretive Data Percent cell count reference ranges are not reported, since discordance with absolute values may lead to misinterpretation of CBC data. Current Interpretive Data was last revised on 2017. Monocyte pct 6.4 % [facility] Comment: Interpretive Data Percent cell count reference ranges are not reported, since discordance with absolute values may lead to misinterpretation of CBC data. Current Interpretive Data was last revised on 2017. Eosinophil pct 1.5 % [facility] Comment: Interpretive Data Percent cell count reference ranges are not reported, since discordance with absolute values may lead to misinterpretation of CBC data. Current Interpretive Data was last revised on 2017. Basophil pct 0.5 % [facility] Comment: Interpretive Data Percent cell count reference ranges are not reported, since discordance with absolute values may lead to misinterpretation of CBC data. Current Interpretive Data was last revised on 2017. Blood 05/29/2024 12:0 8 AM INDUSTRIAL TECH INSTRUCTOR 05/29/2024 12:51 AM INDUSTRIAL TECH INSTRUCTOR Mark Clayton MD LAB BLOOD ORDERABLES Abbi l Result [facility] [place] [address] * (ABNORMAL) CBC with auto differential (05/29/2024 12:08 AM INDUSTRIAL TECH INSTRUCTOR) Pathologist [facility] WBC 8.0 3.8 - 9.9 K/cumm Hgb 13.9 11.9 - 15.5 g/dL [facility] Hct 41.4 35.6 - 45.5 % [facility] Plt 246 150 - 400 K/cumm [facility] MPV 10.5 9.1 - 12.3 fL [facility] RBC 5.11 3.90 - 5.20 M/cumm [facility] MCV 81.0(L) 81.3 - 96.4 fL [facility] MCH 27.2 27.1 - 33.3 pg [facility] MCHC 33.6 32.3 - 35.7 g/dL [facility] RDW CV 13.8 11.1 - 14.9 % [facility] RDW SD 40.7 35.7 - 48.1 fL [facility] NRBC abs 0.00 0.00 - 0.01 K/cumm [facility] Blood 05/29/2024 12:0 8 AM INDUSTRIAL TECH INSTRUCTOR 05/29/2024 12:51 AM INDUSTRIAL TECH INSTRUCTOR us Mark Clayton MD LAB BLOOD ORDERABLES Abbi l Result [facility] [place] [address] * Magnesium (05/29/2024 12:08 AM INDUSTRIAL TECH INSTRUCTOR) Pathologist [facility] Magnesium 1.9 1.4 - 2.5 mg/dL Blood 05/29/2024 12:0 8 AM INDUSTRIAL TECH INSTRUCTOR 05/29/2024 12:51 AM INDUSTRIAL TECH INSTRUCTOR Mark Clayton MD LAB BLOOD ORDERABLES Abbi l Result [facility] Department [place] [address] * Hepatic function panel (05/29/2024 12:08 AM INDUSTRIAL TECH INSTRUCTOR) Pathologist [facility] Bilirubin, total 0.5 0.1 - 1.2 mg/dL Bilirubin, direct 0.2 0.1 - 0.3 mg/dL [facility] Protein, pl 7.7 6.5 - 8.5 g/dL [facility] Albumin 3.7 3.5 - 5.0 g/dL [facility] Alk phos 129 40 - 130 Units/L [facility] ALT 34 7 - 45 Units/L [facility] AST 42 10 - 45 Units/L [facility] Blood 05/29/2024 12:0 8 AM INDUSTRIAL TECH INSTRUCTOR 05/29/2024 12:51 AM INDUSTRIAL TECH INSTRUCTOR Mark Clayton MD LAB BLOOD ORDERABLES Abbi l Result [facility] Department [place] [address] * Basic metabolic panel (05/29/2024 12:08 AM INDUSTRIAL TECH INSTRUCTOR) Pathologist [facility] Sodium 141 135 - 145 mmol/L Potassium, pl 4.1 3.3 - 4.9 mmol/L [facility] Chloride 101 97 - 110 mmol/L [facility] CO2 30 22 - 32 mmol/L [facility] Anion gap 10 2 - 15 mmol/L [facility] BUN 9 6 - 25 mg/dL [facility] Creatinine 0.80 0.60 - 1.10 mg/dL [facility] Glucose 107 70 - 199 mg/dL [facility] Comment: Interpretive Data Fasting glucose >/= 126 [...] 2022. Calcium 9.8 8.5 - 10.3 mg/dL [facility] Blood 05/29/2024 12:0 8 AM INDUSTRIAL TECH INSTRUCTOR 05/29/2024 12:51 AM INDUSTRIAL TECH INSTRUCTOR Mark Clayton MD LAB BLOOD ORDERABLES Abbi vesna Result Performing Organization Address [facility] Co de Phone Number [facility] Department [place] [address] * (ABNORMAL) TSH receptor antibody (05/27/2024 8:59 PM INDUSTRIAL TECH INSTRUCTOR) Pathologist [facility] TSH receptor ab 8.08(H) 0.00 - 1.75 IUnits/L [facility] Comment: ADDITIONAL INFORMATION At a decision limit of 1.75 IU/L, this assay has 97% sensitivity and 99% specificity for detection of Graves' disease. In healthy individuals and in patients with thyroid disease without diagnosis of Graves' disease, the upper limit of anti-TSHR values are 1.22 IU/L and 1.58 IU/L, respectively (97.5th percentiles). Test Performed by: [facility] - [address] [address] Clinical Document Improvement Educator: Martínez Andre Ph.D.; CLIA# [id number] Blood 05/27/2024 8:59 PM INDUSTRIAL TECH INSTRUCTOR 05/28/2024 5:20 PM INDUSTRIAL TECH INSTRUCTOR Mark Clayton MD LAB BLOOD ORDERABLES Abbi l Result Performing Organization Address City/[facility] Co de Phone Number [facility] Department [place] [address] [facility] * eGFR (05/27/2024 8:58 PM INDUSTRIAL TECH INSTRUCTOR) Pathologist [facility] eGFR >90 >=60 mL/min/1. 73 m2 Comment: [...] last reviewed 2021. Blood 05/27/2024 8:58 PM INDUSTRIAL TECH INSTRUCTOR 05/27/2024 9:49 PM INDUSTRIAL TECH INSTRUCTOR us Mark Clayton MD LAB BLOOD ORDERABLES Abbi malagon Result [facility] Department [place] [address] * Differential, auto (05/27/2024 8:58 PM INDUSTRIAL TECH INSTRUCTOR) Pathologist [facility] Neutrophil abs 2.6 1.5 - 6.5 K/cumm Imm gran abs 0.0 0.0 - 0.1 K/cumm [facility] Lymphocyte abs 2.0 0.8 - 3.3 K/cumm [facility] Monocyte abs 0.5 0.2 - 0.8 K/cumm [facility] Eosinophil abs 0.2 0.0 - 0.5 K/cumm [facility] Basophil abs 0.1 0.0 - 0.1 K/cumm [facility] Neutrophil pct 49.1 % [facility] Comment: Interpretive Data Percent cell count reference ranges are not reported, since discordance with absolute values may lead to misinterpretation of CBC data. Current Interpretive Data was last revised on 2017. Imm gran pct 0.4 % [facility] Comment: Interpretive Data Percent cell count reference ranges are not reported, since discordance with absolute values may lead to misinterpretation of CBC data. Current Interpretive Data was last revised on 2017. Lymphocyte pct 37.8 % [facility] Comment: Interpretive Data Percent cell count reference ranges are not reported, since discordance with absolute values may lead to misinterpretation of CBC data. Current Interpretive Data was last revised on 2017. Monocyte pct 8.6 % [facility] Comment: Interpretive Data Percent cell count reference ranges are not reported, since discordance with absolute values may lead to misinterpretation of CBC data. Current Interpretive Data was last revised on 2017. Eosinophil pct 3.1 % [facility] Comment: Interpretive Data Percent cell count reference ranges are not reported, since discordance with absolute values may lead to misinterpretation of CBC data. Current Interpretive Data was last revised on 2017. Basophil pct 1.0 % [facility] Comment: Interpretive Data Percent cell count reference ranges are not reported, since discordance with absolute values may lead to misinterpretation of CBC data. Current Interpretive Data was last revised on 2017. Blood 05/27/2024 8:58 PM INDUSTRIAL TECH INSTRUCTOR 05/27/2024 9:50 PM INDUSTRIAL TECH INSTRUCTOR us Mark Clayton MD LAB BLOOD ORDERABLES Abbi malagon Result [facility] [place] [address] * (ABNORMAL) CBC with auto differential (05/27/2024 8:58 PM INDUSTRIAL TECH INSTRUCTOR) WBC 5.2 3.8 - 9.9 K/cumm Hgb 13.2 11.9 - 15.5 g/dL [facility] Hct 38.7 35.6 - 45.5 % [facility] Plt 241 150 - 400 K/cumm [facility] MPV 10.7 9.1 - 12.3 fL [facility] RBC 4.85 3.90 - 5.20 M/cumm [facility] MCV 79.8(L) 81.3 - 96.4 fL [facility] MCH 27.2 27.1 - 33.3 pg [facility] MCHC 34.1 32.3 - 35.7 g/dL [facility] RDW CV 14.0 11.1 - 14.9 % [facility] RDW SD 40.8 35.7 - 48.1 fL [facility] NRBC abs 0.00 0.00 - 0.01 K/cumm [facility] Blood 05/27/2024 8:58 PM INDUSTRIAL TECH INSTRUCTOR 05/27/2024 9:50 PM INDUSTRIAL TECH INSTRUCTOR Mark Clayton MD LAB BLOOD ORDERABLES Abbi l Result Performing Organization Address [facility] Co de Phone Number [facility] Department [place] [address] * (ABNORMAL) Thyroid peroxidase antibody (TPO) (05/27/2024 8:58 PM INDUSTRIAL TECH INSTRUCTOR) Anti Thyroid Peroxidase 105(H) <=34 IUnits/mL Comment: ATPO Interpretive Data Results may be up to 28% higher in patients receiving Itraconazole. Current interpretive data was last revised 2020. Blood 05/27/2024 8:58 PM INDUSTRIAL TECH INSTRUCTOR 05/27/2024 9:49 PM INDUSTRIAL TECH INSTRUCTOR us Mark Clayton MD LAB BLOOD ORDERABLES Abbi l Result [facility] [place] [address] * (ABNORMAL) Thyroid stimulating immunoglobulin (05/27/2024 8:58 PM INDUSTRIAL TECH INSTRUCTOR) [facility] TSIG 2.5(H) <=1.3 Walker ref Lab Comment: Test Performed by: [facility] [address] [place] [address] Clinical Document Improvement Educator: Martínez Andre Ph.D.; CLIA# [id number] Blood 05/27/2024 8:58 PM INDUSTRIAL TECH INSTRUCTOR 05/28/2024 4:58 PM INDUSTRIAL TECH INSTRUCTOR Mark Clayton MD LAB BLOOD ORDERABLES Abbi l Result [facility] [place] [address] [facility] * Magnesium (05/27/2024 8:58 PM INDUSTRIAL TECH INSTRUCTOR) [facility] Magnesium 1.7 1.4 - 2.5 mg/dL Blood 05/27/2024 8:58 PM INDUSTRIAL TECH INSTRUCTOR 05/27/2024 9:49 PM INDUSTRIAL TECH INSTRUCTOR Mark Clayton MD LAB BLOOD ORDERABLES Abbi l Result Performing Organization Address City/[facility]/ZIP Co de Phone Number [facility] [place] [address] * (ABNORMAL) Basic metabolic panel (05/27/2024 8:58 PM INDUSTRIAL TECH INSTRUCTOR) [facility] Sodium 142 135 - 145 mmol/L Potassium, pl 3.9 3.3 - 4.9 mmol/L [facility] Chloride 104 97 - 110 mmol/L [facility] CO2 28 22 - 32 mmol/L [facility] Anion gap 10 2 - 15 mmol/L [facility] BUN 9 6 - 25 mg/dL [facility] Creatinine 0.56(L) 0.60 - 1.10 mg/dL [facility] Glucose 152 70 - 199 mg/dL [facility] Comment: Interpretive Data Fasting glucose >/= 126 [...] 2022. Calcium 9.4 8.5 - 10.3 mg/dL [facility] Blood 05/27/2024 8:58 PM INDUSTRIAL TECH INSTRUCTOR 05/27/2024 9:49 PM INDUSTRIAL TECH INSTRUCTOR us Mark Clayton MD LAB BLOOD ORDERABLES Abbi malagon Result [facility] [place] [address] * eGFR (05/27/2024 5:05 AM INDUSTRIAL TECH INSTRUCTOR) eGFR 88 >=60 mL/min/1. 73 m2 Comment: [...] last reviewed 2021. Blood 05/27/2024 5:05 AM INDUSTRIAL TECH INSTRUCTOR 05/27/2024 5:56 AM INDUSTRIAL TECH INSTRUCTOR us Claribel SHARMA LAB BLOOD ORDERABL ES Final Result [facility] [place] [address] * (ABNORMAL) Thyroid Function [place] (05/27/2024 5:05 AM INDUSTRIAL TECH INSTRUCTOR) [facility] TSH <0.01(L) 0.30 - 4.20 mcIUnit/mL Blood 05/27/2024 5:05 AM INDUSTRIAL TECH INSTRUCTOR 05/27/2024 5:56 AM INDUSTRIAL TECH INSTRUCTOR us Mark Clayton MD LAB BLOOD ORDERABLES Abbi l Result Performing Organization Address City/[facility] Co de Phone Number [facility] [place] [address] * (ABNORMAL) CBC without differential (05/27/2024 5:05 AM INDUSTRIAL TECH INSTRUCTOR) [facility] WBC 4.5 3.8 - 9.9 K/cumm Hgb 12.4 11.9 - 15.5 g/dL [facility] Hct 36.6 35.6 - 45.5 % [facility] Plt 232 150 - 400 K/cumm [facility] MPV 10.4 9.1 - 12.3 fL [facility] RBC 4.55 3.90 - 5.20 M/cumm [facility] MCV 80.4(L) 81.3 - 96.4 fL [facility] MCH 27.3 27.1 - 33.3 pg [facility] MCHC 33.9 32.3 - 35.7 g/dL [facility] RDW CV 14.0 11.1 - 14.9 % [facility] RDW SD 40.8 35.7 - 48.1 fL [facility] NRBC abs 0.00 0.00 - 0.01 K/cumm [facility] Blood 05/27/2024 5:05 AM INDUSTRIAL TECH INSTRUCTOR 05/27/2024 5:56 AM INDUSTRIAL TECH INSTRUCTOR Claribel SHARMA LAB BLOOD ORDERABL ES Final Result Performing Organization Address [facility] Co de Phone Number [facility] [place] [address] * (ABNORMAL) T3, free (05/27/2024 5:05 AM INDUSTRIAL TECH INSTRUCTOR) Free T3 6.2(H) 2.0 - 4.4 pg/mL Blood 05/27/2024 5:05 AM INDUSTRIAL TECH INSTRUCTOR 05/27/2024 5:56 AM INDUSTRIAL TECH INSTRUCTOR Mark Clayton MD LAB BLOOD ORDERABLES Abbi l Result Performing Organization Address [facility] de Phone Number [facility] [place] [address] * (ABNORMAL) T4, free (05/27/2024 5:05 AM INDUSTRIAL TECH INSTRUCTOR) Free T4 2.83(H) 0.90 - 1.70 ng/dL Blood 05/27/2024 5:05 AM INDUSTRIAL TECH INSTRUCTOR 05/27/2024 5:56 AM INDUSTRIAL TECH INSTRUCTOR Narrative [facility] - 05/27/2024 9:51 AM INDUSTRIAL TECH INSTRUCTOR This test was reflexed from a TSH result. Mark Clayton MD LAB BLOOD ORDERABLES Edit ed Result - Final Performing Organization Address [facility] Co de Phone Number [facility] Department [place] [address] * Magnesium (05/27/2024 5:05 AM INDUSTRIAL TECH INSTRUCTOR) Magnesium 1.8 1.4 - 2.5 mg/dL Blood 05/27/2024 5:05 AM INDUSTRIAL TECH INSTRUCTOR 05/27/2024 5:56 AM INDUSTRIAL TECH INSTRUCTOR Mark Clayton MD LAB BLOOD ORDERABLES Abbi l Result Performing Organization Address City/[facility]/ZIP Co de Phone Number [facility] [place] [address] * (ABNORMAL) Renal function panel (05/27/2024 5:05 AM INDUSTRIAL TECH INSTRUCTOR) Sodium 144 135 - 145 mmol/L Potassium, pl 3.8 3.3 - 4.9 mmol/L [facility] Chloride 108 97 - 110 mmol/L [facility] CO2 29 22 - 32 mmol/L [facility] Anion gap 7 2 - 15 mmol/L [facility] BUN 7 6 - 25 mg/dL [facility] Creatinine 0.65 0.60 - 1.10 mg/dL [facility] Glucose 119 70 - 199 mg/dL [facility] Comment: Interpretive Data Fasting glucose >/= 126 [...] 9.6 8.5 - 10.3 mg/dL [facility] Phosphorus, pl 3.3 2.3 - 4.5 mg/dL [facility] Albumin 3.1(L) 3.5 - 5.0 g/dL [facility] Blood 05/27/2024 5:05 AM INDUSTRIAL TECH INSTRUCTOR 05/27/2024 5:56 AM INDUSTRIAL TECH INSTRUCTOR Claribel SHARMA LAB BLOOD ORDERABL ES Final Result Performing Organization Address [facility]/ZIP Co de Phone Number [facility] [place] [address] * XR Orthopantogram Panorex (05/26/2024 5:44 PM INDUSTRIAL TECH INSTRUCTOR) Anatomical Region Laterality Modality Head and Neck N/A Panoramic X-Ray 05/26/2024 6:49 PM INDUSTRIAL TECH INSTRUCTOR Impressions 05/26/2024 6:49 PM INDUSTRIAL TECH INSTRUCTOR 1. Periapical lucencies involving the 2 left most maxillary teeth and the right most maxillary tooth. Electronically signed by: Nathan Barrow D.O. Narrative 05/26/2024 6:49 PM INDUSTRIAL TECH INSTRUCTOR EXAMINATION: XR ORTHOPANTOGRAM/PANOREX HISTORY: dental pain/ abscess [...] Final Result * eGFR (05/26/2024 11:50 AM INDUSTRIAL TECH INSTRUCTOR) eGFR >90 >=60 mL/min/1. 73 m2 Comment: [...] reviewed 2021. Blood 05/26/2024 11:5 0 AM INDUSTRIAL TECH INSTRUCTOR 05/26/2024 12:05 PM INDUSTRIAL TECH INSTRUCTOR Claribel SHARMA LAB BLOOD ORDERABL ES Final Result Performing Organization Address [facility] de Phone Number [facility] [place] [address] * aPTT (05/26/2024 11:50 AM INDUSTRIAL TECH INSTRUCTOR) aPTT 28 28 - 38 sec Comment: Interpretive Data Heparin therapeutic range: 66.0 - 100.0 seconds. Range based on correlation with therapeutic heparin activity range of 0.3 - 0.7 Units/mL. Current interpretive data was last revised on 2023. Blood 05/26/2024 11:5 0 AM INDUSTRIAL TECH INSTRUCTOR 05/26/2024 11:57 AM INDUSTRIAL TECH INSTRUCTOR Narrative [facility] - 05/26/2024 12:27 PM INDUSTRIAL TECH INSTRUCTOR Baseline prior to enoxaparin initiation. Claribel SHARMA LAB BLOOD ORDERABL ES Final Result Performing Organization Address [facility] de Phone Number [facility] [place] [address] * (ABNORMAL) Protime-INR (05/26/2024 11:50 AM INDUSTRIAL TECH INSTRUCTOR) PT 15.8(H) 9.7 - 13.0 sec INR 1.45(H) 0.90 - 1.20 [facility] Comment: Interpretive data Oral anticoagulant therapeutic ranges: Venous thromboembolism prophylaxis or treatment: 2.0-3.0 CARDIOLOGY Standard range: 2.0-3.0 High-intensity range: 2.5-3.5 Refer to indication-specific guidelines for appropriate target ranges for prosthetic heart valve replacement. Current interpretive data was last revised on 2019. Blood 05/26/2024 11:5 0 AM INDUSTRIAL TECH INSTRUCTOR 05/26/2024 11:57 AM INDUSTRIAL TECH INSTRUCTOR Narrative [facility] - 05/26/2024 12:27 PM INDUSTRIAL TECH INSTRUCTOR Baseline prior to enoxaparin initiation. us Claribel SHARMA LAB BLOOD ORDERABL ES Final Result Performing Organization Address City/[facility]/ZIP Co de Phone Number [facility] Department [place] [address] * (ABNORMAL) CBC without differential (05/26/2024 11:50 AM INDUSTRIAL TECH INSTRUCTOR) WBC 4.5 3.8 - 9.9 K/cumm Hgb 13.1 11.9 - 15.5 g/dL [facility] Hct 38.3 35.6 - 45.5 % [facility] Plt 248 150 - 400 K/cumm [facility] MPV 10.5 9.1 - 12.3 fL [facility] RBC 4.84 3.90 - 5.20 M/cumm [facility] MCV 79.1(L) 81.3 - 96.4 fL [facility] MCH 27.1 27.1 - 33.3 pg [facility] MCHC 34.2 32.3 - 35.7 g/dL [facility] RDW CV 14.1 11.1 - 14.9 % [facility] RDW SD 40.5 35.7 - 48.1 fL [facility] NRBC abs 0.00 0.00 - 0.01 K/cumm [facility] Blood 05/26/2024 11:5 0 AM INDUSTRIAL TECH INSTRUCTOR 05/26/2024 12:05 PM INDUSTRIAL TECH INSTRUCTOR Narrative [facility] - 05/26/2024 12:12 PM INDUSTRIAL TECH INSTRUCTOR Baseline prior to enoxaparin initiation. Claribel SHARMA LAB BLOOD ORDERABL ES Final Result Performing Organization Address City/[facility]/ZIP Co de Phone Number [facility] [place] [address] * (ABNORMAL) Creatinine (05/26/2024 11:50 AM INDUSTRIAL TECH INSTRUCTOR) Pathologist [facility] Creatinine 0.57(L) 0.60 - 1.10 mg/dL Blood 05/26/2024 11:5 0 AM INDUSTRIAL TECH INSTRUCTOR 05/26/2024 12:05 PM INDUSTRIAL TECH INSTRUCTOR Narrative [facility] - 05/26/2024 12:35 PM INDUSTRIAL TECH INSTRUCTOR Baseline prior to enoxaparin initiation. us Claribel SHARMA LAB BLOOD ORDERABL ES Final Result Performing Organization Address [facility]/ZIP Co de Phone Number [facility] [place] [address] * Check Sample (05/26/2024 8:40 AM INDUSTRIAL TECH INSTRUCTOR) Pathologist [facility] ABO Rh A Positive [facility] HCLL OTHER 05/26/2024 8:40 AM INDUSTRIAL TECH INSTRUCTOR 05/26/2024 8:56 AM INDUSTRIAL TECH INSTRUCTOR us Audra Espinoza MD LAB BLOOD ORDERABLES Final Result Performing Organization Address [facility] de Phone Number [facility] Department [place] [address] [facility] * (ABNORMAL) aPTT (05/26/2024 8:09 AM INDUSTRIAL TECH INSTRUCTOR) Pathologist [facility] aPTT 27(L) 28 - 38 sec Comment: Interpretive Data Heparin therapeutic range: 66.0 - 100.0 seconds. Range based on correlation with therapeutic heparin activity range of 0.3 - 0.7 Units/mL. Current interpretive data was last revised on 2023. Blood 05/26/2024 8:09 AM INDUSTRIAL TECH INSTRUCTOR 05/26/2024 8:18 AM INDUSTRIAL TECH INSTRUCTOR us Audra Espinoza MD LAB BLOOD ORDERABLES Final Result Performing Organization Address City/[facility]/ZIP Co de Phone Number [facility] [place] [address] * (ABNORMAL) Protime-INR (05/26/2024 8:09 AM INDUSTRIAL TECH INSTRUCTOR) PT 15.4(H) 9.7 - 13.0 sec INR 1.42(H) 0.90 - 1.20 [facility] Comment: Interpretive data Oral anticoagulant therapeutic ranges: Venous thromboembolism prophylaxis or treatment: 2.0-3.0 CARDIOLOGY Standard range: 2.0-3.0 High-intensity range: 2.5-3.5 Refer to indication-specific guidelines for appropriate target ranges for prosthetic heart valve replacement. Current interpretive data was last revised on 2019. Blood 05/26/2024 8:09 AM INDUSTRIAL TECH INSTRUCTOR 05/26/2024 8:18 AM INDUSTRIAL TECH INSTRUCTOR us Audra Espinoza MD LAB BLOOD ORDERABLES Final Result Performing Organization Address [facility] Co de Phone Number [facility] [place] [address] * Type and screen (05/26/2024 8:09 AM INDUSTRIAL TECH INSTRUCTOR) Pathologist [facility] Jennifer, indirect Negative ABO Rh A Positive [facility] Blood 05/26/2024 8:09 AM INDUSTRIAL TECH INSTRUCTOR 05/26/2024 8:19 AM INDUSTRIAL TECH INSTRUCTOR Narrative [facility] - 05/26/2024 9:03 AM INDUSTRIAL TECH INSTRUCTOR Has the patient had Daratumumab or Isatuximab in the past 6 months?->Unknown us Audra Espinoza MD LAB BLOOD BANK TEST ORDERAB LES Final Result Performing Organization Address [facility]/[place] [address] * (ABNORMAL) ECG 12-LEAD (05/26/2024 7:31 AM INDUSTRIAL TECH INSTRUCTOR) Narrative [facility] - 05/26/2024 7:31 AM INDUSTRIAL TECH INSTRUCTOR Audra Espinoza MD 05/26/2024 7:32 AM ECG [...] Lechuga MD ECG ORDERABLES Final Res ult [facility] * Sepsis Lactate w/ Reflex (05/25/2024 11:18 PM INDUSTRIAL TECH INSTRUCTOR) Sepsis Lactate 0.9 0.7 - 2.0 mmol/L Blood 05/25/2024 11:1 8 PM INDUSTRIAL TECH INSTRUCTOR 05/25/2024 11:22 PM INDUSTRIAL TECH INSTRUCTOR us Tahs Fink MD LAB BLOOD ORDERABLES Abbi l Result Performing Organization Address City/[facility]/ZIP Co de Phone Number [facility] ([place]) [address] [facility] [place] [address] * (ABNORMAL) Protime-INR (05/25/2024 11:18 PM INDUSTRIAL TECH INSTRUCTOR) PT 15.7(H) 9.7 - 13.0 sec [facility] ([place]) INR 1.44(H) 0.90 - 1.20 [facility] ([place]) Comment: Interpretive data Oral anticoagulant therapeutic ranges: Venous thromboembolism prophylaxis or treatment: 2.0-3.0 CARDIOLOGY Standard range: 2.0-3.0 High-intensity range: 2.5-3.5 Refer to indication-specific guidelines for appropriate target ranges for prosthetic heart valve replacement. Current interpretive data was last revised on 2019. Blood 05/25/2024 11:1 8 PM INDUSTRIAL TECH INSTRUCTOR 05/25/2024 11:22 PM INDUSTRIAL TECH INSTRUCTOR Tash Fink MD LAB BLOOD ORDERABLES Abbi l Result Performing Organization Address [facility] Co de Phone Number [facility] ([place]) [address] [facility] [place] [address] * Blood culture Blood Peripheral (05/25/2024 10:52 PM INDUSTRIAL TECH INSTRUCTOR) Report Final Report: No growth Comment:Testing performed by : [facility], [address] [place] [address] Blood (Peripheral) 05/25/2024 10:52 PM INDUSTRIAL TECH INSTRUCTOR 05/26/2024 2:42 AM INDUSTRIAL TECH INSTRUCTOR Narrative [facility] ([place]) - 05/30/2024 7:01 AM INDUSTRIAL TECH INSTRUCTOR From a different site than #1. Draw [...] performance characteristics have been verified by the [facility] Microbiology Laboratory. For questions about this culture, contact the Microbiology Laboratory at [phone]. Interpretive data was last revised on 24. Tash Fink MD LAB MICROBIOLOGY - GENERA L ORDERABLES Final Result [facility] ([place]) 1 [facility] Department [place] [address] * Blood culture Blood Peripheral (05/25/2024 10:52 PM INDUSTRIAL TECH INSTRUCTOR) Report Final Report: No growth Comment:Testing performed by : [facility], [address] [place]., [address] Blood (Peripheral) 05/25/2024 10:52 PM INDUSTRIAL TECH INSTRUCTOR 05/26/2024 2:42 AM INDUSTRIAL TECH INSTRUCTOR Narrative [facility] ([place]) - 05/30/2024 7:01 AM INDUSTRIAL TECH INSTRUCTOR Draw Blood cultures before administration of Antibiotics [...] performance characteristics have been verified by the [facility]. For questions about this culture, contact the Microbiology Laboratory at [phone]. Interpretive data was last revised on 24. us Tash Fink MD LAB MICROBIOLOGY - GENERA L ORDERABLES Final Result [facility] [place]) 1 [facility] Department [place] [address] * CT Neck Soft Tissue W Contrast (05/25/2024 8:28 PM INDUSTRIAL TECH INSTRUCTOR) Anatomical Region Laterality Modality Head and Neck N/A Computed Tomogra phy 05/25/2024 9:19 PM INDUSTRIAL TECH INSTRUCTOR Narrative 05/25/2024 9:30 PM INDUSTRIAL TECH INSTRUCTOR EXAM DESCRIPTION: CT SOFT TISSUE NECK W [...] parotid glands are obscured by severe dental yarsanism related artifact. The bilateral submandibular glands enhance [...] immunosuppression, or patients with known primary cancer. http://pubs.rsna.org/doi/pdf/10.1148/radiol.[email or web address] THIS IS AN ELECTRONICALLY VERIFIED FINAL REPORT 05/25/2024 9:30 PM - Electronically signed by Isaiah Mcneil D.O. AP: AP Report ID: [id number] Reading Location: [place] [address] Procedure Note Isaiah Mcneil, DO - 05/25/2024 [...] parotid glands are obscured by severe dental yarsanism related artifact. The bilateral submandibular glands enhance [...] withimmunosuppression, or patients with known primary cancer. http://pubs.rsna.org/doi/pdf/10.1148/radiol.[email or web address] THIS IS AN ELECTRONICALLY VERIFIED FINAL REPORT 05/25/2024 9:30 PM - Electronically signed by Isaiah Mcneil D.O. AP: LIBIA Report ID: [id number] Reading Location: [place] [address] Tash Fink MD IMG CT PROCEDURES Final R esult * eGFR (05/25/2024 6:52 PM INDUSTRIAL TECH INSTRUCTOR) eGFR 82 >=60 mL/min/1. 73 m2 Comment: [...] last reviewed 2021. Blood 05/25/2024 6:52 PM INDUSTRIAL TECH INSTRUCTOR 05/25/2024 6:55 PM INDUSTRIAL TECH INSTRUCTOR us Tash Fink MD LAB BLOOD ORDERABLES Abbi malagon Result [facility] ([place]) 1 [facility] Department [place] [address] * Differential, auto (05/25/2024 6:52 PM INDUSTRIAL TECH INSTRUCTOR) Pathologist [facility] Neutrophil abs 3.1 1.5 - 6.5 K/cumm Imm gran abs 0.0 0.0 - 0.1 K/cumm [facility] ([place]) Lymphocyte abs 1.7 0.8 - 3.3 K/cumm [facility] ([place]) Monocyte abs 0.5 0.2 - 0.8 K/cumm [facility] ([place]) Eosinophil abs 0.1 0.0 - 0.5 K/cumm [facility] ([place]) Basophil abs 0.0 0.0 - 0.1 K/cumm [facility] ([place]) Neutrophil pct 56.8 % [facility] ([place]) Comment: Interpretive Data Percent cell count reference [...] revised on 2017. Blood 05/25/2024 6:52 PM INDUSTRIAL TECH INSTRUCTOR 05/25/2024 6:55 PM INDUSTRIAL TECH INSTRUCTOR Tash Fink MD LAB BLOOD ORDERABLES Abbi l Result [facility] ([place]) 1 [facility] Department of Laboratories [place], [place] [id number] * (ABNORMAL) CBC with auto differential (05/25/2024 6:52 PM INDUSTRIAL TECH INSTRUCTOR) WBC 5.4 3.8 - 9.9 K/cumm Hgb 13.0 11.9 - 15.5 g/dL [facility] ([place]) Hct 38.3 35.6 - 45.5 [...] RDW SD 41.2 35.7 - 48.1 fL [facility] NRBC abs 0.00 0.00 - 0.01 K/cumm [facility] ([place] Blood 05/25/2024 6:52 PM INDUSTRIAL TECH INSTRUCTOR 05/25/2024 6:55 PM INDUSTRIAL TECH INSTRUCTOR Tash Fink MD LAB BLOOD ORDERABLES Abbi malagon Result [facility] ([place]) 1 [facility] Department of Laboratories [place] [id number] * Comprehensive metabolic panel (05/25/2024 6:52 PM INDUSTRIAL TECH INSTRUCTOR) Sodium 136 135 - 145 mmol/L Potassium, pl 3.8 3.3 - 4.9 mmol/L [facility] Chloride 100 97 - 110 mmol/L [facility]) CO2 27 22 - 32 mmol/L [facility] ([place]) Anion gap 9 2 - 15 mmol/L [facility] ([place]) BUN 18 6 - 25 mg/dL [facility] ([place]) Creatinine 0.73 0.60 - 1.10 [...] [facility] ([place]) Blood 05/25/2024 6:52 PM INDUSTRIAL TECH INSTRUCTOR 05/25/2024 6:55 PM INDUSTRIAL TECH INSTRUCTOR us Tash Fink MD LAB BLOOD ORDERABLES Abbi l Result [facility] ([place]) 1 [facility] [place] [address] from Last 3 Months Insurance [facility] MEDICARE [facility] MEDICARE Address: [facility] [id number] [place] [id number] [employer] MEDICARE Advance Directives For more information, please contact: [phone] * LIMITED - No CPR (Latest Code Status on File) Date Activated Date Inactivated Comments 05/26/2024 11:11 AM 05/29/2024 6:50 PM Question Answer Comments Provide aggressive medical m anagement before a full cardiopulmonary arrest occurs. Use antibiotics, IV Fluids, and medical treatment unless specifically selected below: No intubation Care Teams Windows Software Engineer Relationship Specialty Start Date End Date Kuldip Watt DO [address] [place] [address] PCP - General Family Medicine 05/25/24
--- OUTSIDE RECORDS SUMMARY | 2024-08-06 08:35 | XMS_ITS | Clinical Summary ---
Author Organization [facility] Address [address] [place] [address] Care Team Providers Care Eight Arm Operator Name Role Phone Kuldip Wattrish Primary Care Provider Allergies Active Allergy Reactions Criticality Noted Date [...] by mouth daily 90 tablet 3 06/15/2024 6 Active Active Problems Problem Noted Date Diagnosed Date Low TSH level 05/27/2024 Assessment & Plan (05/29/2024 12:05 PM [employer]): - in workup for Afib noted TSH [...] 05/26/2024 Assessment & Plan (05/29/2024 12:01 PM [employer] OFF[employer]): - ENT was consulted from ED and [...] 05/26/2024 Assessment & Plan (05/26/2024 11:19 AM [employer] OFF[employer]ER): -continue home losartan hctz -ctm Atrial fibrillation 05/26/2024 Assessment & Plan (05/29/2024 12:03 PM [employer] OFF[employer]): - EKG with AF w rate 114 - Per daughter at bedside 05/26, this is not a new diagnosis but pt denies. On clarification 05/27, daughter says that it was another family member and the patient has not had prior dx of afib Patient has not been on anticoagulation in the past. Is agreeable to nursing home AC. No sig bleeding hx or hx [...] 05/26/2024 Assessment & Plan (05/26/2024 11:20 AM [employer]): Pulmonary nodules, for example right upper lobe [...] (05/26/2024): Added automatically from request for surgery [id number] Bilateral knee pain 02/04/2022 Encounters Date Type Department Care Team Description 06/26/2024 SHOP/CHAP Subsequent Outreach [facility] OP CASE MANAGEMENT [address] [place] [address] Audra Berry RN 06/19/2024 SHOP/CHAP Subsequent Outreach [facility] OP CASE MANAGEMENT [address] [place] [address] Audra Berry RN 06/15/2024 10:40 AM [employer] Office Visit [facility] Endocrinology Metabolism and Lipid [address] [facility] 13th [place] [address] [place] [address] Kika Goodman MD PhD Graves disease (Primary Dx); Other osteoporosis without current pathological fracture 06/15/2024 8:20 AM [employer] OFFICER Lab [facility] ([facility]) [address] [place] [address] Low TSH level 06/11/2024 SHOP/CHAP Subsequent Outreach [facility] OP CASE MANAGEMENT [address] [place] [address] Audra Berry RN 06/05/2024 SHOP/CHAP Subsequent Outreach [facility] OP CASE MANAGEMENT [address] [place] [address] Audra Berry, RN 05/30/2024 SHOP/CHAP Initial Outreach [facility] OP CASE MANAGEMENT [address] [place] [address] Audra Berry, RN 05/30/2024 SHOP/CHAP Initial Eligibility Review [facility] OP CASE MANAGEMENT [address] [place] [address] Audar Berry, RN 05/26/2024 6:57 AM [employer] - 05/29/2024 2:45 PM [employer] OFFIC[employer] Hospital Encounter [address] [address] Audra Espinoza MD Dao, MD Calos Steel Che[place] Ho Jeffrey, MD Pinkerton, MD Ayan Morin, Zaki Rich MD Submandibular abscess (Primary Dx); Chronic atrial fibrillation (HCC); Low TSH level Discharge Disposition: Discharge to home or self care 05/25/2024 9:22 PM [employer] - 05/26/2024 4:37 AM [employer] OFFICER Emergency [facility] Emergency Department 1 [place] [address] Tash Fink MD Wala, Brown Acuña MD [...] Tobacco: Unknown Tobacco Cessation:Counseling Given: Not Answered [facility] Utilities Answer Date Recorded In the past 12 months has th e electric, gas, oil, or water company threatened to [...] often do you attend chur ch or sabianist services? More than 4 times per year 05/30/2024 Do you belong to any clubs o r organizations such as religious groups, unions, fraternal or athletic groups, or [...] any time in the past 12 m [facility], were you homeless or living in [...] on file Legal Sex Female 5:17 PM [employer] Gender Identity Not on file Sexual Orientation Not on file Obstetrics History Last Filed Vital Signs Vital Sign Reading Time Taken Comments Blood Pressure 130/77 06/15/2024 10:17 AM [employer] Pulse 107 06/15/2024 10:17 AM [employer]IC[employer] Temperature 37 C (98.6 F) 06/15/2024 10:17 AM [employer] OFF[employer]ER Respiratory Rate 16 05/29/2024 2:25 PM [employer] OFFICER Oxygen Saturation 100% 05/29/2024 2:25 PM [employer] OFF[employer]ER Inhaled Oxygen Concentration - - Weight 54.3 kg (119 lb 12.8 oz) 025 10:17 AM [employer] Height 149.9 cm (4' 11 ) 06/15/2024 10: 17 AM [employer] OFFICER Body Mass Index 24.2 06/15/2024 10:17 AM [employer] OFFIC[employer] Plan of Treatment Health Maintenance Due Date Last Done Comments Depression Screening 1940 Osteoporosis Screening-Bone Density Scan 1940 DTaP/Tdap/Td Vaccine (1 - Tdap) 1953 Hepatitis B Screening 1960 Pneumococcal vaccine 65+ (1 of 2 - PCV) 1961 Well Visit 65+ 2007 Zoster Vaccine (2 of 3) 06/12/2013 04/17/2013 Influenza Vaccine (#1) 2023 Fall Risk Assessment 05/29/2025 05/29/2024 Procedures Procedure Name Priority Date/Time Associated Diagnosis Comments T4, FREE Routine 06/15/2024 8:15 AM [employer] Low TSH level THYROID FUNCTION CASCADE Routine 06/15/2024 8:15 AM [employer] OFFICER Low TSH level TRANSTHORACIC ECHO (TTE) COMPLETE W DOPPLER/CF WO CONTRAST Routine 05/29/2024 2:08 PM [employer] OFFIC[employer] EGFR Routine 05/29/2024 12:08 AM [employer] OFFICER DIFFERENTIAL AUTO Routine 05/29/2024 12: 08 AM [employer] OFFICER HEPATIC FUNCTION PANEL Routine 12:08 AM [employer] OFFICER MAGNESIUM Routine 05/29/2024 12:08 AM [employer] OFFICER CBC WITH AUTO DIFFERENTIAL Routine 05/29/2024 12:08 AM [employer] OFFICER BASIC METABOLIC PANEL Routine 05/29/2024 12:08 AM [employer] OFFICER TSH RECEPTOR ANTIBODY Routine 05/27/2024 8:59 PM [employer] OFFICER EGFR Routine 05/27/2024 8:58 PM [employer] OFFICER DIFFERENTIAL AUTO Routine 05/27/2024 8:5 8 PM [employer] OFFICER THYROID STIMULATING IMMUNOGLOBULIN Routine 05/27/2024 8:58 PM [employer] OFFICER THYROID PEROXIDASE ANTIBODY Routine 05/27/2024 8:58 PM [employer] OFFICER MAGNESIUM Routine 05/27/2024 8:58 PM [employer] OFFICER CBC WITH AUTO DIFFERENTIAL Routine 05/27/2024 8:58 PM [employer] OFFICER BASIC METABOLIC PANEL Routine 05/27/2024 8:58 PM [employer] OFFICER T3, FREE Routine 05/27/2024 5:05 AM [employer] OFFICER THYROID FUNCTION CASCADE Routine 05/27/2024 5:05 AM [employer] OFFICER T4, FREE Routine 05/27/2024 5:05 AM [employer] OFFICER MAGNESIUM Routine 05/27/2024 5:05 AM [employer] OFFICER EGFR Routine 05/27/2024 5:05 AM [employer] OFFICER RENAL FUNCTION PANEL Routine 05/27/2024 5:05 AM [employer] OFFICER CBC WITHOUT DIFFERENTIAL Routine 05/27/2024 5:05 AM [employer] OFFICER XR ORTHOPANTOGRAM/PANOREX IP Routine 05/26/2024 5:44 PM [employer] OFFICER EGFR STAT 05/26/2024 11:50 AM [employer] OFFICER CREATININE STAT 05/26/2024 11:50 AM [employer] OFFICER APTT STAT 05/26/2024 11:50 AM [employer] OFFICER CBC WITHOUT DIFFERENTIAL STAT 05/26/2024 11:50 AM [employer] OFFICER PROTIME-INR STAT 05/26/2024 11:50 AM [employer] OFFICER B CHECK SAMPLE STAT 05/26/2024 8:40 AM [employer] OFFICER APTT STAT 05/26/2024 8:09 AM [employer] OFFICER PROTIME-INR STAT 05/26/2024 8:09 AM [employer] OFFICER TYPE AND SCREEN STAT 05/26/2024 8:09 AM [employer] OFFICER ECG 12-LEAD Routine 05/26/2024 7:31 AM [employer] OFFICER PROTIME-INR STAT 05/25/2024 11:18 PM [employer] OFFICER SEPSIS LACTATE WITH REFLEX STAT 05/25/2024 11:18 PM [employer] OFFICER BLOOD CULTURE STAT 05/25/2024 10:52 PM [employer] OFFICER BLOOD CULTURE STAT 05/25/2024 10:52 PM [employer] OFFICER CT SOFT TISSUE NECK W CONTRAST ED 05/25/2024 8:28 PM [employer] OFFICER EGFR STAT 05/25/2024 6:52 PM [employer] OFFICER DIFFERENTIAL AUTO STAT 05/25/2024 6:5 2 PM [employer] OFFICER COMPREHENSIVE METABOLIC PANEL STAT 05/25/2024 6:52 PM [employer] OFFICER CBC WITH AUTO DIFFERENTIAL STAT 05/25/2024 6:52 PM [employer] OFFICER from Last 3 Months Results * (ABNORMAL) Thyroid Function [place] (06/15/2024 8:15 AM [employer] OFFICER) [facility] TSH <0.01(L) 0.30 - 4.20 mcIUnit/mL Blood 06/15/2024 8:15 AM [employer] OFFICER 06/15/2024 8:31 AM [employer] OFFICER Zaki Botello MD LAB BLOOD ORDERABLES F inal Result Performing Organization Address City/[facility]/ZIP Co de Phone Number [facility] Department [place] [address] * (ABNORMAL) T4, free (06/15/2024 8:15 AM [employer] OFFICER) [facility] Free T4 1.99(H) 0.90 - 1.70 ng/dL Blood 06/15/2024 8:15 AM [employer] OFFICER 06/15/2024 8:36 AM [employer] OFFICER Narrative [facility] - 06/15/2024 9:35 AM [employer] OFFICER This test was reflexed from a TSH result. us Zaki Botello MD LAB BLOOD ORDERABLES F inal Result [facility] Department [place] [address] * TRANSTHORACIC ECHO (TTE) COMPLETE W DOPPLER/CF WO CONTRAST (05/29/2024 2:08 PM [employer] OFFICER) LV EF % CONS SCIMAGE Anatomical Region Laterality Modality Ultrasound 05/29/2024 12:5 5 PM [employer] OFFICER Narrative 05/29/2024 5:33 PM [employer] OFFICER [facility] [place]iac [place] [address] [place] [address] Transthoracic Echocardiographic Report Patient Name: RAFA FIELDS : 1940 (84y ) Gender: F Study Date: 05/29/2024 12:55:15 PM Ht(Inch): 59 Wt(Lb): 134.92 BSA: 1.6 Hospital Nurse: Cony Solomon RDCS Location: [id number] Order Provider: MARK CLAYTON Heart Rate: 79 BMI: 27.25 BP: 133/90 Quality: The study images were of technically good quality. Ref Provider: MARK CLAYTON PROCEDURES: Echocardiographic Report: ([id number], [id number]) Transthoracic complete echo with strain imaging, 2D, [...] By: Rony Arroyo MD 05/29/2024 3:43:24 PM [employer] OFFICER Electronically Signed By: Jorge Zavaleta MD 05/29/2024 5:32:47 PM [employer] OFFICER Procedure Note Jorge Zavaleta MD - 05/29/2024 [facility] [place] [address] [place] [address] Transthoracic Echocardiographic Report Patient Name: RAFA FIELDS : 1940 (84y ) Gender: F Study Date: 05/29/2024 12:55:15 PM Ht(Inch): 59 Wt(Lb): 134.92 BSA: 1.6 Hospital Nurse: Cony Solomon RDCS Location: [place] [address] Order Provider:MARK CLAYTON Heart Rate: 79 BMI: 27.25 BP: 133/90 Quality: The study images were oftechnically good quality. Ref Provider: MARK CLAYTON PROCEDURES: Echocardiographic Report: ([id number], [id number]) Transthoracic complete echo withstrain imaging, 2D, spectral [...] cm [ 2.5 - 4.2 ] MR [id number] cm TAPSE 1.18 cm [ 1.71 - [...] mmHg Asc Ao Index 2.03 cm/m2 PI VCG459.10 sec - COMPARISONS: There was no previous [...] By: Rony Arroyo MD 05/29/2024 3:43:24 PM [employer] OFF[employer] Electronically Signed By: Jorge Zavaleta MD 05/29/2024 5:32:47 PM [employer] OFFICER us Mark Clayton MD CV ECHO PROCEDURES Final Result * eGFR (05/29/2024 12:08 AM [employer] OFFICER) eGFR 74 >=60 mL/min/1. 73 m2 Comment: [...] reviewed 2021. Blood 05/29/2024 12:0 8 AM [employer] OFFICER 05/29/2024 12:51 AM [employer] OFFICER us Mark Clayton MD LAB BLOOD ORDERABLES Abbi l Result [facility] One [facility] Department [place] [address] * Differential, auto (05/29/2024 12:08 AM [employer] OFFIC[employer]) Neutrophil abs 5.3 1.5 - 6.5 K/cumm Imm gran abs 0.0 0.0 - 0.1 K/cumm [facility] Lymphocyte abs 2.0 0.8 - 3.3 K[facility] Monocyte abs 0.5 0.2 - 0.8 K/cumm [facility] Eosinophil abs 0.1 0.0 - 0.5 K/cumm [facility] Basophil abs 0.0 0.0 - 0.1 K/cumm [facility] Neutrophil pct 65.9 % [facility] Comment: Interpretive Data Percent cell count reference ranges are not reported, since discordance with absolute values may lead to misinterpretation of CBC data. Current Interpretive Data was last revised on 2017. Imm gran pct 0.4 % [facility] Comment: Interpretive Data Percent cell count reference ranges are not reported, since discordance with absolute values may lead to misinterpretation of CBC data. Current Interpretive Data was last revised on 2017. Lymphocyte pct 25.3 % [facility] Comment: Interpretive Data Percent cell count reference ranges are not reported, since discordance with absolute values may lead to misinterpretation of CBC data. Current Interpretive Data was last revised on 2017. Monocyte pct 6.4 % [facility] Comment: Interpretive Data Percent cell count reference ranges are not reported, since discordance with absolute values may lead to misinterpretation of CBC data. Current Interpretive Data was last revised on 2017. Eosinophil pct 1.5 % [facility] Comment: Interpretive Data Percent cell count reference ranges are not reported, since discordance with absolute values may lead to misinterpretation of CBC data. Current Interpretive Data was last revised on 2017. Basophil pct 0.5 % [facility] Comment: Interpretive Data Percent cell count reference ranges are not reported, since discordance with absolute values may lead to misinterpretation of CBC data. Current Interpretive Data was last revised on 2017. Blood 05/29/2024 12:0 8 AM [employer] 05/29/2024 12:51 AM [employer] OFFICER Mark Clayton MD LAB BLOOD ORDERABLES Abbi malagon Result [facility] One [facility] Department [place] [address] * (ABNORMAL) CBC with auto differential (05/29/2024 12:08 AM [employer]) WBC 8.0 3.8 - 9.9 K/cumm Hgb 13.9 11.9 - 15.5 g/dL [facility] Hct 41.4 35.6 - 45.5 % [facility] Plt 246 150 - 400 K/cumm [facility] MPV 10.5 9.1 - 12.3 fL [facility] RBC 5.11 3.90 - 5.20 M/cumm [facility] MCV 81.0(L) 81.3 - 96.4 fL [facility] MCH 27.2 27.1 - 33.3 pg [facility] MCHC 33.6 32.3 - 35.7 g/dL [facility] RDW CV 13.8 11.1 - 14.9 % [facility] RDW SD 40.7 35.7 - 48.1 fL [facility] NRBC abs 0.00 0.00 - 0.01 K/cumm [facility] Blood 05/29/2024 12:0 8 AM [employer] 05/29/2024 12:51 AM [employer] OFFICER Mark Clayton MD LAB BLOOD ORDERABLES Abbi l Result Performing Organization Address City/[facility] Co de Phone Number [facility] [place] [address] * Magnesium (05/29/2024 12:08 AM [employer]) Pathologist [facility] Magnesium 1.9 1.4 - 2.5 mg/dL Blood 05/29/2024 12:0 8 AM [employer] OFF[employer] 05/29/2024 12:51 AM [employer] OFFIC[employer] us Mark Clayton MD LAB BLOOD ORDERABLES Abbi l Result Performing Organization Address [facility] de Phone Number [facility] [place] [address] * Hepatic function panel (05/29/2024 12:08 AM [employer]) Bilirubin, total 0.5 0.1 - 1.2 mg/dL Bilirubin, direct 0.2 0.1 - 0.3 mg/dL [facility] Protein, pl 7.7 6.5 - 8.5 g/dL [facility] Albumin 3.7 3.5 - 5.0 g/dL [facility] Alk phos 129 40 - 130 Units/L [facility] ALT 34 7 - 45 Units/L [facility] AST 42 10 - 45 Units/L [facility] Blood 05/29/2024 12:0 8 AM [employer] OFFIC[employer] 05/29/2024 12:51 AM [employer] OFFICER Mark Clayton MD LAB BLOOD ORDERABLES Abbi l Result Performing Organization Address [facility] Co de Phone Number [facility] [place] [address] * Basic metabolic panel (05/29/2024 12:08 AM [employer] OFF[employer]) Pathologist [facility] Sodium 141 135 - 145 mmol/L Potassium, pl 4.1 3.3 - 4.9 mmol/L [facility] Chloride 101 97 - 110 mmol/L [facility] CO2 30 22 - 32 mmol/L [facility] Anion gap 10 2 - 15 mmol/L [facility] BUN 9 6 - 25 mg/dL [facility] Creatinine 0.80 0.60 - 1.10 mg/dL [facility] Glucose 107 70 - 199 mg/dL [facility] Comment: Interpretive Data Fasting glucose >/= 126 [...] 2022. Calcium 9.8 8.5 - 10.3 mg/dL [facility] Blood 05/29/2024 12:0 8 AM [employer] 05/29/2024 12:51 AM [employer] OFFICER us Mark Clayton MD LAB BLOOD ORDERABLES Abbi malagon Result [facility] One [facility] [place] [address] * (ABNORMAL) TSH receptor antibody (05/27/2024 8:59 PM [employer]) Pathologist [facility] TSH receptor ab 8.08(H) 0.00 - 1.75 IUnits/L [facility] Comment: ADDITIONAL INFORMATION At a decision limit of 1.75 IU/L, this assay has 97% sensitivity and 99% specificity for detection of Graves' disease. In healthy individuals and in patients with thyroid disease without diagnosis of Graves' disease, the upper limit of anti-TSHR values are 1.22 IU/L and 1.58 IU/L, respectively (97.5th percentiles). Test Performed by: [facility] [address] [place] [address] Credit Verifier: Martínez Andre Ph.D.; CLIA# [id number] Blood 05/27/2024 8:59 PM [employer] 05/28/2024 5:20 PM [employer] OFFIC[employer] us Mark Clayton MD LAB BLOOD ORDERABLES Abbi malagon Result [facility] One [facility] [place] [address] [facility] * eGFR (05/27/2024 8:58 PM [employer] OFFIC[employer]) eGFR >90 >=60 mL/min/1. 73 m2 Comment: [...] last reviewed 2021. Blood 05/27/2024 8:58 PM [employer] OFFICER 05/27/2024 9:49 PM [employer] OFFICER us Mark Clayton MD LAB BLOOD ORDERABLES Abbi malagon Result [facility] One [facility] [place] [address] * Differential, auto (05/27/2024 8:58 PM [employer] OFFIC[employer]) Neutrophil abs 2.6 1.5 - 6.5 K/cumm Imm gran abs 0.0 0.0 - 0.1 K/cumm [facility] Lymphocyte abs 2.0 0.8 - 3.3 K/cumm [facility] Monocyte abs 0.5 0.2 - 0.8 K/cumm [facility] Eosinophil abs 0.2 0.0 - 0.5 K/cumm [facility] Basophil abs 0.1 0.0 - 0.1 K/cumm [facility] Neutrophil pct 49.1 % [facility] Comment: Interpretive Data Percent cell count reference ranges are not reported, since discordance with absolute values may lead to misinterpretation of CBC data. Current Interpretive Data was last revised on 2017. Imm gran pct 0.4 % [facility] Comment: Interpretive Data Percent cell count reference ranges are not reported, since discordance with absolute values may lead to misinterpretation of CBC data. Current Interpretive Data was last revised on 2017. Lymphocyte pct 37.8 % [facility] Comment: Interpretive Data Percent cell count reference ranges are not reported, since discordance with absolute values may lead to misinterpretation of CBC data. Current Interpretive Data was last revised on 2017. Monocyte pct 8.6 % [facility] Comment: Interpretive Data Percent cell count reference ranges are not reported, since discordance with absolute values may lead to misinterpretation of CBC data. Current Interpretive Data was last revised on 2017. Eosinophil pct 3.1 % [facility] Comment: Interpretive Data Percent cell count reference ranges are not reported, since discordance with absolute values may lead to misinterpretation of CBC data. Current Interpretive Data was last revised on 2017. Basophil pct 1.0 % [facility] Comment: Interpretive Data Percent cell count reference ranges are not reported, since discordance with absolute values may lead to misinterpretation of CBC data. Current Interpretive Data was last revised on 2017. Blood 05/27/2024 8:58 PM [employer] 05/27/2024 9:50 PM [employer] OFFICER Mark Clayton MD LAB BLOOD ORDERABLES Abbi l Result Performing Organization Address [facility] Co de Phone Number [facility] [place] [address] * (ABNORMAL) CBC with auto differential (05/27/2024 8:58 PM [employer]) Pathologist [facility] WBC 5.2 3.8 - 9.9 K/cumm Hgb 13.2 11.9 - 15.5 g/dL [facility] Hct 38.7 35.6 - 45.5 % [facility] Plt 241 150 - 400 K/cumm [facility] MPV 10.7 9.1 - 12.3 fL [facility] RBC 4.85 3.90 - 5.20 M/cumm [facility] MCV 79.8(L) 81.3 - 96.4 fL [facility] MCH 27.2 27.1 - 33.3 pg [facility] MCHC 34.1 32.3 - 35.7 g/dL [facility] RDW CV 14.0 11.1 - 14.9 % [facility] RDW SD 40.8 35.7 - 48.1 fL [facility] NRBC abs 0.00 0.00 - 0.01 K/cumm [facility] Blood 05/27/2024 8:58 PM [employer] 05/27/2024 9:50 PM [employer] us Mark Clayton MD LAB BLOOD ORDERABLES Abbi l Result Performing Organization Address [facility] Co de Phone Number [facility] Department [place] [address] * (ABNORMAL) Thyroid peroxidase antibody (TPO) (05/27/2024 8:58 PM [employer]) Pathologist [facility] [facility] Anti Thyroid Peroxidase 105(H) <=34 IUnits/mL Comment: ATPO Interpretive Data Results may be up to 28% higher in patients receiving Itraconazole. Current interpretive data was last revised 2020. Blood 05/27/2024 8:58 PM [employer] 05/27/2024 9:49 PM [employer] Mark Clayton MD LAB BLOOD ORDERABLES Abbi l Result Performing Organization Address City/[facility] Co de Phone Number [facility] [place] [address] * (ABNORMAL) Thyroid stimulating immunoglobulin (05/27/2024 8:58 PM [employer]) Pathologist [facility] TSIG 2.5(H) <=1.3 [place] ref [facility] Comment: Test Performed by: [facility] [address] [place] [address] Credit Verifier: Martínez Andre Ph.D.; CLIA# [id number] Blood 05/27/2024 8:58 PM [employer] 05/28/2024 4:58 PM [employer] Mark Clayton MD LAB BLOOD ORDERABLES Abbi l Result Performing Organization Address [facility] Co de Phone Number [facility] [place] [address] [place] ref [facility] * Magnesium (05/27/2024 8:58 PM [employer]) [facility] Magnesium 1.7 1.4 - 2.5 mg/dL Blood 05/27/2024 8:58 PM [employer] 05/27/2024 9:49 PM [employer] Mark Clayton MD LAB BLOOD ORDERABLES Abbi l Result Performing Organization Address City/[facility] Co de Phone Number [facility] [place] [address] * (ABNORMAL) Basic metabolic panel (05/27/2024 8:58 PM [employer]) Pathologist [facility] Sodium 142 135 - 145 mmol/L Potassium, pl 3.9 3.3 - 4.9 mmol/L [facility] Chloride 104 97 - 110 mmol/L [facility] CO2 28 22 - 32 mmol/L [facility] Anion gap 10 2 - 15 mmol/L [facility] BUN 9 6 - 25 mg/dL [facility] Creatinine 0.56(L) 0.60 - 1.10 mg/dL [facility] Glucose 152 70 - 199 mg/dL [facility] Comment: Interpretive Data Fasting glucose >/= 126 [...] 2022. Calcium 9.4 8.5 - 10.3 mg/dL [facility] Blood 05/27/2024 8:58 PM [employer] 05/27/2024 9:49 PM [employer] us Mark Clayton MD LAB BLOOD ORDERABLES Abbi malagon Result [facility] [place] [address] * eGFR (05/27/2024 5:05 AM [employer]) Pathologist [facility] eGFR 88 >=60 mL/min/1. 73 m2 Comment: [...] last reviewed 2021. Blood 05/27/2024 5:05 AM [employer] 05/27/2024 5:56 AM [employer] us Claribel SHARMA LAB BLOOD ORDERABL ES Final Result Performing Organization Address [facility]/ZIP Co de Phone Number [facility] Department of Laboratories [place], [place] [id number] * (ABNORMAL) Thyroid Function [place] (05/27/2024 5:05 AM [employer]) TSH <0.01(L) 0.30 - 4.20 mcIUnit/mL Blood 05/27/2024 5:05 AM [employer] 05/27/2024 5:56 AM [employer] us Mark Clayton MD LAB BLOOD ORDERABLES Abbi l Result Performing Organization Address City/[facility]/ZIP Co de Phone Number [facility] [place] [address] * (ABNORMAL) CBC without differential (05/27/2024 5:05 AM [employer]) WBC 4.5 3.8 - 9.9 K/cumm Hgb 12.4 11.9 - 15.5 g/dL [facility] Hct 36.6 35.6 - 45.5 % [facility] Plt 232 150 - 400 K/cumm [facility] MPV 10.4 9.1 - 12.3 fL [facility] RBC 4.55 3.90 - 5.20 M/cumm [facility] MCV 80.4(L) 81.3 - 96.4 fL [facility] MCH 27.3 27.1 - 33.3 pg [facility] MCHC 33.9 32.3 - 35.7 g/dL [facility] RDW CV 14.0 11.1 - 14.9 % [facility] RDW SD 40.8 35.7 - 48.1 fL [facility] NRBC abs 0.00 0.00 - 0.01 K/cumm [facility] Blood 05/27/2024 5:05 AM [employer] 05/27/2024 5:56 AM [employer] us Claribel SHARMA LAB BLOOD ORDERABL ES Final Result Performing Organization Address [facility]/ZIP Co de Phone Number [facility] [place] [address] * (ABNORMAL) T3, free (05/27/2024 5:05 AM [employer]) Free T3 6.2(H) 2.0 - 4.4 pg/mL Blood 05/27/2024 5:05 AM [employer] 05/27/2024 5:56 AM [employer] us Mark Clayton MD LAB BLOOD ORDERABLES Abbi l Result [facility] [place] [address] * (ABNORMAL) T4, free (05/27/2024 5:05 AM [employer]) Free T4 2.83(H) 0.90 - 1.70 ng/dL Blood 05/27/2024 5:05 AM [employer] 05/27/2024 5:56 AM [employer] Narrative [facility] - 05/27/2024 9:51 AM [employer] This test was reflexed from a TSH result. Mark Clayton MD LAB BLOOD ORDERABLES Edit ed Result - Final Performing Organization Address City/[facility]/ZIP Co de Phone Number [facility] Department [place] [address] * Magnesium (05/27/2024 5:05 AM [employer]) Pathologist [facility] Magnesium 1.8 1.4 - 2.5 mg/dL Blood 05/27/2024 5:05 AM [employer] 05/27/2024 5:56 AM [employer] Mark Clayton MD LAB BLOOD ORDERABLES Abbi l Result Performing Organization Address [facility] Co de Phone Number [facility] Department [place] [address] * (ABNORMAL) Renal function panel (05/27/2024 5:05 AM [employer]) Pathologist [facility] Sodium 144 135 - 145 mmol/L Potassium, pl 3.8 3.3 - 4.9 mmol/L [facility] Chloride 108 97 - 110 mmol/L [facility] CO2 29 22 - 32 mmol/L [facility] Anion gap 7 2 - 15 mmol/L [facility] BUN 7 6 - 25 mg/dL [facility] Creatinine 0.65 0.60 - 1.10 mg/dL [facility] Glucose 119 70 - 199 mg/dL [facility] Comment: Interpretive Data Fasting glucose >/= 126 [...] 2022. Calcium 9.6 8.5 - 10.3 mg/dL [facility] Phosphorus, pl 3.3 2.3 - 4.5 mg/dL [facility] Albumin 3.1(L) 3.5 - 5.0 g/dL [facility] Blood 05/27/2024 5:05 AM [employer] 05/27/2024 5:56 AM [employer] Claribel SHARMA LAB BLOOD ORDERABL ES Final Result [facility] [place] [address] * XR Orthopantogram Panorex (05/26/2024 5:44 PM [employer]) Anatomical Region Laterality Modality Head and Neck N/A Panoramic X-Ray 05/26/2024 6:49 PM [employer] Impressions 05/26/2024 6:49 PM [employer] 1. Periapical lucencies involving the 2 left most maxillary teeth and the right most maxillary tooth. Electronically signed by: Nathan Barrow D.O. Narrative 05/26/2024 6:49 PM [employer] EXAMINATION: XR ORTHOPANTOGRAM/PANOREX HISTORY: dental pain/ abscess [...] Final Result * eGFR (05/26/2024 11:50 AM [employer]) eGFR >90 >=60 mL/min/1. 73 m2 Comment: [...] reviewed 2021. Blood 05/26/2024 11:5 0 AM [employer] 05/26/2024 12:05 PM [employer] Claribel SHARMA LAB BLOOD ORDERABL ES Final Result [facility] [place] [address] * aPTT (05/26/2024 11:50 AM [employer]) aPTT 28 28 - 38 sec Comment: Interpretive Data Heparin therapeutic range: 66.0 - 100.0 seconds. Range based on correlation with therapeutic heparin activity range of 0.3 - 0.7 Units/mL. Current interpretive data was last revised on 2023. Blood 05/26/2024 11:5 0 AM [employer] 05/26/2024 11:57 AM [employer] Narrative [facility] [place] - 05/26/2024 12:27 PM [employer] Baseline prior to enoxaparin initiation. Claribel SHARMA LAB BLOOD ORDERABL ES Final Result Performing Organization Address [facility] Co de Phone Number [facility] [place] [address] * (ABNORMAL) Protime-INR (05/26/2024 11:50 AM [employer]) Pathologist [facility] PT 15.8(H) 9.7 - 13.0 sec INR 1.45(H) 0.90 - 1.20 [facility] Comment: Interpretive data Oral anticoagulant therapeutic ranges: Venous thromboembolism prophylaxis or treatment: 2.0-3.0 CARDIOLOGY Standard range: 2.0-3.0 High-intensity range: 2.5-3.5 Refer to indication-specific guidelines for appropriate target ranges for prosthetic heart valve replacement. Current interpretive data was last revised on 2019. Blood 05/26/2024 11:5 0 AM [employer] 05/26/2024 11:57 AM [employer] Narrative [facility] - 05/26/2024 12:27 PM [employer] Baseline prior to enoxaparin initiation. Claribel SHARMA LAB BLOOD ORDERABL ES Final Result Performing Organization Address [facility] de Phone Number [facility] [place] [address] * (ABNORMAL) CBC without differential (05/26/2024 11:50 AM [employer]) [facility] WBC 4.5 3.8 - 9.9 K/cumm Hgb 13.1 11.9 - 15.5 g/dL [facility] Hct 38.3 35.6 - 45.5 % [facility] Plt 248 150 - 400 K/cumm [facility] MPV 10.5 9.1 - 12.3 fL [facility] RBC 4.84 3.90 - 5.20 M/cumm [facility] MCV 79.1(L) 81.3 - 96.4 fL [facility] MCH 27.1 27.1 - 33.3 pg [facility] MCHC 34.2 32.3 - 35.7 g/dL [facility] RDW CV 14.1 11.1 - 14.9 % [facility] RDW SD 40.5 35.7 - 48.1 fL [facility] NRBC abs 0.00 0.00 - 0.01 K/cumm [facility] Blood 05/26/2024 11:5 0 AM [employer] 05/26/2024 12:05 PM [employer] Narrative [facility] - 05/26/2024 12:12 PM [employer] Baseline prior to enoxaparin initiation. us Claribel SHARMA LAB BLOOD ORDERABL ES Final Result Performing Organization Address City/[facility]/ZIP Co de Phone Number [facility] [place] [address] * (ABNORMAL) Creatinine (05/26/2024 11:50 AM [employer]) Creatinine 0.57(L) 0.60 - 1.10 mg/dL Blood 05/26/2024 11:5 0 AM [employer] 05/26/2024 12:05 PM [employer] Narrative [facility] - 05/26/2024 12:35 PM [employer] Baseline prior to enoxaparin initiation. us Claribel SHARMA LAB BLOOD ORDERABL ES Final Result Performing Organization Address City/[facility]/ZIP Co de Phone Number [facility] Department [place] [address] * Check Sample (05/26/2024 8:40 AM [employer]) ABO Rh A Positive [facility] OTHER 05/26/2024 8:40 AM [employer] 05/26/2024 8:56 AM [employer] us Audra Espinoza MD LAB BLOOD ORDERABLES Final Result [facility] Department [place] [address] [facility] * (ABNORMAL) aPTT (05/26/2024 8:09 AM [employer]) aPTT 27(L) 28 - 38 sec Comment: Interpretive Data Heparin therapeutic range: 66.0 - 100.0 seconds. Range based on correlation with therapeutic heparin activity range of 0.3 - 0.7 Units/mL. Current interpretive data was last revised on 2023. Blood 05/26/2024 8:09 AM [employer] 05/26/2024 8:18 AM [employer] Audra Espinoza MD LAB BLOOD ORDERABLES Final Result Performing Organization Address [facility] [place] [address] * (ABNORMAL) Protime-INR (05/26/2024 8:09 AM [employer]) Pathologist [facility] PT 15.4(H) 9.7 - 13.0 sec INR 1.42(H) 0.90 - 1.20 [facility] Comment: Interpretive data Oral anticoagulant therapeutic ranges: Venous thromboembolism prophylaxis or treatment: 2.0-3.0 CARDIOLOGY Standard range: 2.0-3.0 High-intensity range: 2.5-3.5 Refer to indication-specific guidelines for appropriate target ranges for prosthetic heart valve replacement. Current interpretive data was last revised on 2019. Blood 05/26/2024 8:09 AM [employer] 05/26/2024 8:18 AM [employer] Audra Espinoza MD LAB BLOOD ORDERABLES Final Result Performing Organization Address [facility] [place] [address] * Type and screen (05/26/2024 8:09 AM [employer]) Jennifer, indirect Negative ABO Rh A Positive [facility] Blood 05/26/2024 8:09 AM [employer] 05/26/2024 8:19 AM [employer] Narrative JCARLOS [facility] - 05/26/2024 9:03 AM [employer] Has the patient had Daratumumab or Isatuximab in the past 6 months?->Unknown Audra Espinoza MD LAB BLOOD BANK TEST ORDERAB LES Final Result Performing Organization Address City/State/[facility] Co de Phone Number [facility] [place] [address] * (ABNORMAL) ECG 12-LEAD (05/26/2024 7:31 AM [employer]) Narrative [facility] - 05/26/2024 7:31 AM [employer] Audra Espinoza MD 05/26/2024 7:32 AM ECG [...] Lechuga MD ECG ORDERABLES Final Res ult [facility] * Sepsis Lactate w/ Reflex (05/25/2024 11:18 PM [employer]) Sepsis Lactate 0.9 0.7 - 2.0 mmol/L Blood 05/25/2024 11:1 8 PM [employer] 05/25/2024 11:22 PM [employer] Tash Fink MD LAB BLOOD ORDERABLES Abbi l Result Performing Organization Address [facility]/ZIP Co de Phone Number [facility]IRE[facility] (SPENCER) [address] [facility] [employer] [place] [address] * (ABNORMAL) Protime-INR (05/25/2024 11:18 PM [employer]) PT 15.7(H) 9.7 - 13.0 sec [facility] (SPENCER) INR 1.44(H) 0.90 - 1.20 [facility] (SPENCER) Comment: Interpretive data Oral anticoagulant therapeutic ranges: Venous thromboembolism prophylaxis or treatment: 2.0-3.0 CARDIOLOGY Standard range: 2.0-3.0 High-intensity range: 2.5-3.5 Refer to indication-specific guidelines for appropriate target ranges for prosthetic heart valve replacement. Current interpretive data was last revised on 2019. Blood 05/25/2024 11:1 8 PM [employer] 05/25/2024 11:22 PM [employer] Tash Fink MD LAB BLOOD ORDERABLES Abbi l Result [facility] (SPENCER) 1 [facility] [employer] [place] [address] * Blood culture Blood Peripheral (05/25/2024 10:52 PM [employer]) Report Final Report: No growth Comment:Testing performed by : [facility], [address] [place]., [address] Blood (Peripheral) 05/25/2024 10:52 PM [employer] 05/26/2024 2:42 AM [employer] OFF[employer] Narrative [facility]IRE[facility] (SPENCER) - 05/30/2024 7:01 AM [employer] From a different site than #1. Draw [...] performance characteristics have been verified by the [facility] Microbiology Laboratory. For questions about this culture, contact the Microbiology Laboratory at [phone]. Interpretive data was last revised on 24. us Tash Fink MD LAB MICROBIOLOGY - GENERA L ORDERABLES Final Result [facility] (SPENCER) 1 [facility] Department [place] [address] * Blood culture Blood Peripheral (05/25/2024 10:52 PM [employer]) Report Final Report: No growth Comment:Testing performed by : [facility], [address] [place] [address] Blood (Peripheral) 05/25/2024 10:52 PM [employer] 05/26/2024 2:42 AM [employer] OFF[employer] Narrative [facility]IRE[facility] (SPENCER) - 05/30/2024 7:01 AM [employer] OFFIC[employer] Draw Blood cultures before administration of Antibiotics [...] performance characteristics have been verified by the [facility] Microbiology Laboratory. For questions about this culture, contact the Microbiology Laboratory at [phone]. Interpretive data was last revised on 24. Tash Fink MD LAB MICROBIOLOGY - GENERA L ORDERABLES Final Result [facility] (SPENCER) 1 [facility] Department [place] [address] * CT Neck Soft Tissue W Contrast (05/25/2024 8:28 PM [employer]) Anatomical Region Laterality Modality Head and Neck N/A Computed Tomogra phy 05/25/2024 9:19 PM [employer] Narrative 05/25/2024 9:30 PM [employer] EXAM DESCRIPTION: CT SOFT TISSUE NECK W [...] parotid glands are obscured by severe dental uatsdin related artifact. The bilateral submandibular glands enhance [...] immunosuppression, or patients with known primary cancer. http://pubs.rsna.org/doi/pdf/10.1148/radiol.8106821785 THIS IS AN ELECTRONICALLY VERIFIED FINAL REPORT 05/25/2024 9:30 PM - Electronically signed by Isaiah Mcneil D.O. AP: AP Report ID: [id number] Reading Location: [place] [address] Procedure Note Isaiah Mcneil, DO - 05/25/2024 [...] parotid glands are obscured by severe dental uatsdin related artifact. The bilateral submandibular glands enhance [...] withimmunosuppression, or patients with known primary cancer. http://pubs.rsna.org/doi/pdf/10.1148/radiol.1142676886 THIS IS AN ELECTRONICALLY VERIFIED FINAL REPORT 05/25/2024 9:30 PM - Electronically signed by Isaiah Mcneil D.O. AP: AP Report ID: [id number] Reading Location: [place] [address] Tash Fink MD IMG CT PROCEDURES Final R esult * eGFR (05/25/2024 6:52 PM [employer]) eGFR 82 >=60 mL/min/1. 73 m2 Comment: [...] last reviewed 2021. Blood 05/25/2024 6:52 PM [employer] 05/25/2024 6:55 PM [employer] Tash Fink MD LAB BLOOD ORDERABLES Abbi l Result [facility] [place] [facility] Department [place] [address] * Differential, auto (05/25/2024 6:52 PM [employer]) Neutrophil abs 3.1 1.5 - 6.5 K/cumm [...] revised on 2017. Blood 05/25/2024 6:52 PM [employer] 05/25/2024 6:55 PM [employer] OFF[employer] us Tash Fink MD LAB BLOOD ORDERABLES Abbi malagon Result [facility] RAMIREZ (SPENCER) 1 [facility] Department [place] [address] * (ABNORMAL) CBC with auto differential (05/25/2024 6:52 PM [employer]) WBC 5.4 3.8 - 9.9 K/cumm Hgb [...] RDW SD 41.2 35.7 - 48.1 fL [facility] (SPENCER) NRBC abs 0.00 0.00 - 0.01 K/cumm [facility] Blood 05/25/2024 6:52 PM [employer] OFF[employer] 05/25/2024 6:55 PM [employer] OFFIC[employer] us Tash Fink MD LAB BLOOD ORDERABLES Abbi malagon Result [facility] RAMIREZ (SPENCER) 1 [facility] Department [place] [address] * Comprehensive metabolic panel (05/25/2024 6:52 PM [employer]) Pathologist [facility] Sodium 136 135 - 145 mmol/L Potassium, [...] [facility] (SPENCER) Blood 05/25/2024 6:52 PM [employer] 05/25/2024 6:55 PM [employer] OFF[employer] us Tash Fink MD LAB BLOOD ORDERABLES Abbi malagon Result [facility] 1 [facility] Department [place] [address] from Last 3 Months Insurance [facility] MEDICARE [facility] MEDICARE Advance Directives For more information, please contact: [phone] * LIMITED - No CPR (Latest Code Status on File) Date Activated Date Inactivated Comments 05/26/2024 11:11 AM 05/29/2024 6:50 PM Question Answer Comments Provide aggressive medical m anagement before a full cardiopulmonary arrest occurs. Use antibiotics, IV Fluids, and medical treatment unless specifically selected below: No intubation Care Teams Eight Arm Operator Relationship Specialty Start Date End Date Kuldip Watt DO [address] [place] [address] PCP - General Family Medicine 05/25/24
--- OUTSIDE RECORDS SUMMARY | 2024-08-06 08:35 | XMS_ITS | Clinical Summary ---
Author Organization [facility] Address Critical access hospital[address] [place] [address] Care Team Providers Care Tugboat Engineer Name Role Phone Kuldip Watt Primary Care Provider [phone] Allergies Active Allergy Reactions Criticality Noted Date [...] (02/19/2022): Added automatically from request for surgery [id number] Bilateral knee pain 02/04/2022 Family History Medical [...] on file Legal Sex Female 5:57 PM LITIGATION MANAGER Gender Identity Not on file Sexual Orientation Not on file Last Filed Vital Signs Vital Sign Reading Time Taken Comments Blood Pressure 136/71 03/09/2022 1:14 PM LITIGATION MANAGER Pulse 69 03/09/2022 1:14 PM LITIGATION MANAGER Temperature 36.3 C (97.3 F) 03/09/2022 1:14 PM LITIGATION MANAGER Respiratory Rate 16 03/09/2022 1:14 PM LITIGATION MANAGER Oxygen Saturation 96% 03/09/2022 1:14 PM LITIGATION MANAGER Inhaled Oxygen Concentration - - Weight 64.4 kg (142 lb) 11/30/2022 9:56 AM CDT Height 149.9 cm (4' 11 ) 11/30/2022 9:56 AM CDT Body Mass Index 28.68 11/30/2022 9:56 AM CDT Plan of Treatment Health Maintenance Due Date Last Done Comments DTaP, Tdap and Td Vaccines ( 1 - Tdap) 1961 Pneumococcal Vaccine: 50+ Ye ars (1 of 1 - PCV) 1992 Annual Medicare Wellness Visit 2007 Dexa Scan (General) 2007 Zoster Vaccines (2 of 3) 06/12/2013 04/17/2013 RSV Immunization or 60+ Years (1 - 1-dose 75+ series) 2017 COVID-19 Vaccine (2023-2 5 season) 2023 Meningococcal B Vaccine Aged Out No l [...] in ADLs upon discharge from hospital Lifestyle Karina Kennedy, RN Medical Devices Implanted Type Area Manager Front Office Device Identifier Shelf Expiration Date Model / Serial / Lot Cement Simplex Hv W/Gentamicin - [id number] Implanted:Qty: 1 on 03/08/2022 by Franky Layton MD at [facility] [place] Cement Implant Left: Knee [employer] - DIV GUS TY 07/17/2023 [id number] D Cement Simplex Hv W/Gentamicin - [id number] Implanted:Qty: 1 on 03/08/2022 by Franky Layton MD at [facility] [place] Cement Implant Left: Knee [employer]Y 07/17/2023 [id number] D Attune Femoral Cruciate Retaining Implanted:Qty: 1 on 03/08/2022 by Franky Layton MD at [facility] [place] Left: Knee [employer] DAY[employer] DAY[employer] 09/16/2031 1504-00-1 05 / / [id number] Attune Knee System Revision Tibial Base Fixed Bearing Implanted:Qty: 1 on 03/08/2022 by Franky Layton MD at [facility] [place] Left: Knee [employer] [id number] 12/17/2031 1506-40-0 05 / / [id number] Attune Patella Medialized Dome Implanted:Qty: 1 on 03/08/2022 by Franky Layton MD at [facility] [place] Left: Knee [employer] 06/15/2026 1518-20-0 32 / / [id number] Attune Knee System Tibial Insert Fixed Bearing Cruciate Retaining Implanted:Qty: 1 on 03/08/2022 by Franky Layton MD at [facility] [place] Left: Knee 06/15/2026 1516-20-5 08 / / [id number] Insurance [employer] Advance Directives Documents on File Type Date Recorded Patient Seed Technician Expl anation Advance Directives and Living Will 03/10/2022 8:15 AM 06/25/2014 POA FOR HEALTH CARE Care Teams Tugboat Engineer Relationship Specialty Start Date End Date Kuldip Watt DO [address] [place] [address] PCP - General FAMILY PRACTICE 02/22/22
[2024-08-06 09:28] LABS: Free T4 Free Thyroxine 0.97 ng/dL (0.76-1.46)
[2024-08-06 09:29] LABS: Thyroid Stimulating Hormone < 0.01 uIU/mL (0.36-3.74)
== END 2024-08-06 08:10 | disposition home or self-care (01) ==
LOC: CHSLAB 08:12
PROVIDERS: PCP Family Medicine
DX: E05.00 Thyrotoxicosis with diffuse goiter without thyrotoxic crisis or storm (principal)
CPT/HCPCS: 36415; 84439; 84443

== ENCOUNTER 2024-09-11 08:23 | Outpatient (CLI) | payer MEDICARE, SELFPAY ==
--- OUTSIDE RECORDS SUMMARY | 2024-09-11 08:29 | XMS_ITS | Clinical Summary ---
Author Organization [facility] Address [address] [place] [address] Care Team Providers Care Refractory Furnace Designer Name Role Phone Kuldip Wattrish Primary Care Provider Allergies Active Allergy Reactions Criticality Noted Date Comments Amoxicillin Vomiting Low 05/26/2024 Medications losartan-hydroC HLOROthiazide (HYZAAR) 100-12.5 mg per tablet Take 1 tablet by mouth daily 06/08/2022 Active CHOLECALCIFEROL , VITAMIN D3, ORAL Take 1 tablet by mouth daily Active CYANOCOBALAMIN, VITAMIN B-12, ORAL Take 1 tablet by mouth daily Active amLODIPine (NORVASC) 5 mg tablet Take 1 tablet (5 mg total) by mouth daily Active TURMERIC ORAL Take 1 tablet by mouth daily Active vit C/vit E ac/selenium/gin kgo (MEMORY COMPLEX ORAL) Take 1 tablet by [...] a day 60 tablet 1 05/29/2024 Active metoprolol XL (TOPROL-XL) 50 mg extended release tabletIndicatio ns:Graves disease Take 1 tablet (50 mg total) by mouth daily 90 tablet 3 06/15/2024 Active methIMAzole (TAPAZOLE) 10 mg tabletIndicatio ns:Graves disease Take 1.5 tablets (15 mg total) by mouth daily 135 tablet 3 08/10/2024 Active Active Problems Problem Noted Date Diagnosed Date Low TSH level 05/27/2024 Assessment & Plan (05/29/2024 12:05 PM MACHINE BOSS): - in workup for Afib noted TSH [...] 05/26/2024 Assessment & Plan (05/29/2024 12:01 PM MACHINE BOSS): - ENT was consulted from ED and [...] 05/26/2024 Assessment & Plan (05/26/2024 11:19 AM MACHINE BOSS): -continue home losartan hctz -ctm Atrial fibrillation 05/26/2024 Assessment & Plan (05/29/2024 12:03 PM MACHINE BOSS): - EKG with AF w rate 114 - Per daughter at bedside 05/26, this is not a new diagnosis but pt denies. On clarification 05/27, daughter says that it was another family member and the patient has not had prior dx of afib Patient has not been on anticoagulation in the past. Is agreeable to halfway AC. No sig bleeding hx or hx [...] 05/26/2024 Assessment & Plan (05/26/2024 11:20 AM MACHINE BOSS): Pulmonary nodules, for example right upper lobe [...] (05/26/2024): Added automatically from request for surgery [id number] Bilateral knee pain 02/04/2022 Encounters Date Type Department Care Team Description 08/10/2024 Results Follow-Up [facility] Endocrinology Metabolism and Lipid [address] [facility] Medicine 13th [place] [address] [place] [address] Kika Goodman MD PhD TSH, T4, free 06/26/2024 SHOP/CHAP Subsequent Outreach [facility] OP CASE MANAGEMENT [address] [place] [address] Audra Berry RN 06/19/2024 SHOP/CHAP Subsequent Outreach [facility] OP CASE MANAGEMENT [address] [place] [address] Audra Berry RN 06/15/2024 10:40 AM MACHINE BOSS Office Visit [facility] Endocrinology Metabolism and Lipid [address] [facility] Advanced Medicine 13th [place] [address] [place] [address] Kika Goodman MD PhD Graves disease (Primary Dx); Other osteoporosis without current pathological fracture 06/15/2024 8:20 AM MACHINE BOSS Lab [facility] for [facility] ([facility]) [address] [place] [address] Low TSH level from Last 3 Months Immunizations Immunization Administration Dates Next Due ZOSTER LIVE 04/17/2013 Surgical History Surgery Date Site/Laterality Comments REPLACEMENT TOTAL KNEE 04/18/2021 - 04/17/2022 Left Family History Medical History Relation Name Comments Hyperthyroidism Daughter Carlene s/p MARTIN Relation Name Status Comments Daughter Carlene Alive Social History Tobacco Use Types Packs/Day Years Used Date Smoking Tobacco: Unknown Tobacco Cessation:Counseling Given: Not Answered [facility] Utilities Answer Date Recorded In the past 12 months has [employer], gas, oil, or water [facility] threatened to shut off services in your [...] often do you attend chur ch or anabaptist services? More than 4 times per year 05/30/2024 Do you belong to any clubs o r organizations such as druze groups, unions, fraternal or athletic groups, or [...] any time in the past 12 m [facility], were you homeless or living in a penitentiary (including now)? No 05/30/2024 Personal Safety Answer Date Recorded Have you ever been in or are you currently in a harmful physical or emotional relationship or is someone making you feel afraid or unsafe? Denies 05/26/2024 Comments Unknown Sex and Gender Information Value Date Recorded Sex Assigned at Not on file Legal Sex Female 5:17 PM MACHINE BOSS Gender Identity Not on file Sexual Orientation Not on file Obstetrics History Last Filed Vital Signs Vital Sign Reading Time Taken Comments Blood Pressure 130/77 06/15/2024 10:17 AM MACHINE BOSS Pulse 107 06/15/2024 10:17 AM MACHINE BOSS Temperature 37 C (98.6 F) 06/15/2024 10:17 AM MACHINE BOSS Respiratory Rate 16 05/29/2024 2:25 PM MACHINE BOSS Oxygen Saturation 100% 05/29/2024 2:25 PM MACHINE BOSS Inhaled Oxygen Concentration - - Weight 54.3 kg (119 lb 12.8 oz) 025 10:17 AM MACHINE BOSS Height 149.9 cm (4' 11) 06/15/2024 10: 17 AM MACHINE BOSS Body Mass Index 24.2 06/15/2024 10:17 AM MACHINE BOSS Plan of Treatment Health Maintenance Due Date Last Done Comments Depression Screening 1940 Osteoporosis Screening-Bone Density Scan 1942 DTaP/Tdap/Td Vaccine (1 - Tdap) 1953 Hepatitis B Screening 1960 Pneumococcal vaccine 65+ (1 of 2 - PCV) 1961 Well Visit 65+ 2007 Zoster Vaccine (2 of 3) 06/12/2013 04/17/2013 Influenza Vaccine (Season Ended) 2024 Fall Risk Assessment 05/29/2025 05/29/2024 Procedures Procedure Name Priority Date/Time Associated Diagnosis Comments T4, FREE Routine 08/06/2024 3:06 PM CDT Graves disease TSH Routine 08/06/2024 3:06 PM CDT Graves disease T4, FREE Routine 06/15/2024 8:15 AM MACHINE BOSS Low TSH level THYROID FUNCTION CASCADE Routine 06/15/2024 8:15 AM MACHINE BOSS Low TSH level from Last 3 Months Results * T4, free (08/06/2024 3:06 PM CDT) Blood us Kika Abrams MD PhD LAB BLOOD ORDERABLES Final Result EXTERNAL LAB * TSH (08/06/2024 3:06 PM CDT) Blood us Kika Abrams MD PhD LAB BLOOD ORDERABLES Final Result EXTERNAL LAB * (ABNORMAL) Thyroid Function [place] (06/15/2024 8:15 AM MACHINE BOSS) TSH <0.01(L) 0.30 - 4.20 mcIUnit/mL Blood 06/15/2024 8:15 AM MACHINE BOSS 06/15/2024 8:31 AM MACHINE BOSS us Zaki Botello MD LAB BLOOD ORDERABLES F inal Result [facility] Department [place] [address] * (ABNORMAL) T4, free (06/15/2024 8:15 AM MACHINE BOSS) Free T4 1.99(H) 0.90 - 1.70 ng/dL Blood 06/15/2024 8:15 AM MACHINE BOSS 06/15/2024 8:36 AM MACHINE BOSS Narrative [facility] - 06/15/2024 9:35 AM MACHINE BOSS This test was reflexed from a TSH result. us Zaki Botello MD LAB BLOOD ORDERABLES F inal Result [facility] Department [place] [address] from Last 3 Months Insurance [facility] MEDICARE [facility] MEDICARE Advance Directives For more information, please contact: [phone] * LIMITED - No CPR (Latest Code Status on File) Date Activated Date Inactivated Comments 05/26/2024 11:11 AM 05/29/2024 6:50 PM Question Answer Comments Provide aggressive medical m anagement before a full cardiopulmonary arrest occurs. Use antibiotics, IV Fluids, and medical treatment unless specifically selected below: No intubation Care Teams Refractory Furnace Designer Relationship Specialty Start Date End Date Kuldip Watt DO [address] [place] [address] PCP - General Family Medicine 05/25/24
--- OUTSIDE RECORDS SUMMARY | 2024-09-11 08:29 | XMS_ITS | Referral Summary ---
Author Organization [facility] Address [address] [place] [address] Care Team Providers Care Drive In Theater Attendant Name Role Phone Kuldip Watt DO Primary Care Provider Encounters Date Type Department Care Team Description 08/10/2024 Results Follow-Up [facility] Endocrinology Metabolism and Lipid [address] [facility] Advanced Medicine 13th [place] [address] [place] [address] Kika Goodman MD PhD TSH, T4, free 06/26/2024 SHOP/CHAP Subsequent Outreach [facility] CASE MANAGEMENT [address] [place] [address] Audra Berry RN 06/19/2024 SHOP/CHAP Subsequent Outreach [facility] CASE MANAGEMENT [address] [place] [address] Audra Berry, RN 06/15/2024 8:20 AM RAIL TRANSPORTATION OPERATOR Lab [facility] for [facility] ([facility]) [address] [place] [address] Low TSH level 06/15/2024 10:40 AM RAIL TRANSPORTATION OPERATOR Office Visit [facility] Endocrinology Metabolism and Lipid [address] [facility] Medicine 13th [place] [address] [place] [address] Kika Goodman MD PhD Graves disease (Primary Dx); Other osteoporosis without current pathological fracture from Last 3 Months Allergies Active Allergy [...] daily 90 tablet 3 06/15/2024 6 Active methIMAzole (TAPAZOLE) 10 mg tabletIndicatio ns:Graves disease Take 1.5 tablets (15 mg total) by mouth daily 135 tablet 3 08/10/2024 6 Active Active Problems Problem Noted Date Diagnosed Date Low TSH level 05/27/2024 Assessment & Plan (05/29/2024 12:05 PM RAIL TRANSPORTATION OPERATOR): - in workup for Afib noted TSH [...] 05/26/2024 Assessment & Plan (05/29/2024 12:01 PM RAIL TRANSPORTATION OPERATOR): - ENT was consulted from ED and [...] 05/26/2024 Assessment & Plan (05/26/2024 11:19 AM RAIL TRANSPORTATION OPERATOR): -continue home losartan hctz -ctm Atrial fibrillation 05/26/2024 Assessment & Plan (05/29/2024 12:03 PM RAIL TRANSPORTATION OPERATOR): - EKG with AF w rate 114 - Per daughter at bedside 05/26, this is not a new diagnosis but pt denies. On clarification 05/27, daughter says that it was another family member and the patient has not had prior dx of afib Patient has not been on anticoagulation in the past. 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 No sig bleeding hx or hx [...] 05/26/2024 Assessment & Plan (05/26/2024 11:20 AM RAIL TRANSPORTATION OPERATOR): Pulmonary nodules, for example right upper lobe [...] (05/26/2024): Added automatically from request for surgery [id number] Bilateral knee pain 02/04/2022 Immunizations Immunization Administration Dates Next Due ZOSTER LIVE 04/17/2013 Social History Tobacco Use Types Packs/Day Years Used Date Smoking Tobacco: Unknown Tobacco Cessation:Counseling Given: Not Answered [facility] Utilities Answer Date Recorded In the past 12 months has [employer], gas, oil, or water [employer] threatened to shut off services in your [...] often do you attend chur ch or oriental orthodox services? More than 4 times per year 05/30/2024 Do you belong to any clubs o r organizations such as yarsani groups, unions, fraternal or athletic groups, or [...] any time in the past 12 m [facility], were you homeless or living in a mcc (including now)? No 05/30/2024 Personal Safety Answer Date Recorded Have you ever been in or are you currently in a harmful physical or emotional relationship or is someone making you feel afraid or unsafe? Denies 05/26/2024 Comments Unknown Sex and Gender Information Value Date Recorded Sex Assigned at Not on file Legal Sex Female 5:17 PM RAIL TRANSPORTATION OPERATOR Gender Identity Not on file Sexual Orientation Not on file Last Filed Vital Signs Vital Sign Reading Time Taken Comments Blood Pressure 130/77 06/15/2024 10:17 AM RAIL TRANSPORTATION OPERATOR Pulse 107 06/15/2024 10:17 AM RAIL TRANSPORTATION OPERATOR Temperature 37 C (98.6 F) 06/15/2024 10:17 AM RAIL TRANSPORTATION OPERATOR Respiratory Rate 16 05/29/2024 2:25 PM RAIL TRANSPORTATION OPERATOR Oxygen Saturation 100% 05/29/2024 2:25 PM RAIL TRANSPORTATION OPERATOR Inhaled Oxygen Concentration - - Weight 54.3 kg (119 lb 12.8 oz) 025 10:17 AM RAIL TRANSPORTATION OPERATOR Height 149.9 cm (4' 11) 06/15/2024 10: 17 AM RAIL TRANSPORTATION OPERATOR Body Mass Index 24.2 06/15/2024 10:17 AM RAIL TRANSPORTATION OPERATOR Plan of Treatment Not on file Procedures Procedure Name Priority Date/Time Associated Diagnosis Comments T4, FREE Routine 08/06/2024 3:06 PM CDT Graves disease TSH Routine 08/06/2024 3:06 PM CDT Graves disease T4, FREE Routine 06/15/2024 8:15 AM RAIL TRANSPORTATION OPERATOR Low TSH level THYROID FUNCTION CASCADE Routine 06/15/2024 8:15 AM RAIL TRANSPORTATION OPERATOR Low TSH level from Last 3 Months Results * T4, free (08/06/2024 3:06 PM CDT) Blood Kika Abrams MD PhD LAB BLOOD ORDERABLES Final Result Performing Organization Address [facility] Co de Phone Number EXTERNAL LAB * TSH (08/06/2024 3:06 PM CDT) Blood Kika Abrams MD PhD LAB BLOOD ORDERABLES Final Result Performing Organization Address [facility] de Phone Number EXTERNAL LAB * (ABNORMAL) Thyroid Function [place] (06/15/2024 8:15 AM RAIL TRANSPORTATION OPERATOR) TSH <0.01(L) 0.30 - 4.20 mcIUnit/mL Blood 06/15/2024 8:15 AM RAIL TRANSPORTATION OPERATOR 06/15/2024 8:31 AM RAIL TRANSPORTATION OPERATOR Zaki Botello MD LAB BLOOD ORDERABLES F inal Result Performing Organization Address [facility] de Phone Number [facility] [place] [address] * (ABNORMAL) T4, free (06/15/2024 8:15 AM RAIL TRANSPORTATION OPERATOR) Free T4 1.99(H) 0.90 - 1.70 ng/dL Blood 06/15/2024 8:15 AM RAIL TRANSPORTATION OPERATOR 06/15/2024 8:36 AM RAIL TRANSPORTATION OPERATOR Narrative [facility] - 06/15/2024 9:35 AM RAIL TRANSPORTATION OPERATOR This test was reflexed from a TSH result. Zaki Botello MD LAB BLOOD ORDERABLES F inal Result Performing Organization Address [facility]/ZIP Co de Phone Number [facility] [place] [address] from Last 3 Months Insurance [facility] MEDICARE T MEDICARE Advance Directives For more information, please contact: [phone] * LIMITED - No CPR (Latest Code Status on File) Date Activated Date Inactivated Comments 05/26/2024 11:11 AM 05/29/2024 6:50 PM Question Answer Comments Provide aggressive medical m anagement before a full cardiopulmonary arrest occurs. Use antibiotics, IV Fluids, and medical treatment unless specifically selected below: No intubation Care Teams Drive In Theater Attendant Relationship Specialty Start Date End Date Kuldip Watt DO [address] [place] [address] PCP - General Family Medicine 05/25/24
--- OUTSIDE RECORDS SUMMARY | 2024-09-11 08:29 | XMS_ITS | Encounter Summary ---
Author Organization [facility] Address [address] [place] [address] Phone Care Team Providers Care Entry Level Sales Associate Name Role Phone Kuldip Watt DO Primary Care Provider Encounter Details Date Type Department Care Team (Late st Contact Info) Description 08/10/2024 Results Follow-Up [facility] Endocrinology Metabolism and Lipid [address] [facility] Advanced Medicine 13th [place] [address] [place] [address] Kika Goodman MD PhD [address] [place] [address] TSH, T4, free Social History Tobacco Use Types Packs/Day Years Used Date Smoking Tobacco: Unknown [facility] Utilities Answer Date Recorded In the past 12 months has [employer], gas, oil, or water company threatened to [...] How often do you attend chur or holiness services? More than 4 times per year 05/30/2024 Do you belong to any clubs o r organizations such as spiritism groups, unions, fraternal or athletic groups, or [...] in the past 12 m [facility], were you homeless or living in a care home (including now)? No 05/30/2024 Personal Safety Answer Date Recorded Have you ever been in or are you currently in a harmful physical or emotional relationship or is someone making you feel afraid or unsafe? Denies 05/26/2024 Comments Unknown Sex and Gender Information Value Date Recorded Sex Assigned at Not on file Legal Sex Female 5:17 PM THERAPIST ASST Gender Identity Not on file Sexual Orientation Not on file documented as of this encounter Ordered Prescriptions Prescription Sig Dispense Quantity Refills Last Filled Start Date End Date methIMAzole (TAPAZOLE) 10 mg tabletIndications: Graves disease Take 1.5 tablets (15 mg total) by mouth daily 135 tablet 3 08/10/2024 6 documented in this encounter Miscellaneous Notes * Result Encounter Note - Cherry Bolden CPhT - 08/10/2024 2:19 PM CDT Printed and mailed orders documented in this encounter Plan of Treatment Scheduled Orders Name Type Priority Associated Diagnoses Orde r Schedule TSH Lab Routine Graves disease Expected: 08/13/2024, Expires: 6 T4, free Lab Routine Graves disease Expected: 08/13/2024, Expires: 6 documented as of this encounter Visit Diagnoses Diagnosis Graves disease- Primary Toxic 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
[2024-09-11 09:49] LABS: Free T4 Free Thyroxine 0.53 ng/dL (0.78-2.19)
== END 2024-09-11 08:24 | disposition home or self-care (01) ==
LOC: CHSLAB 08:26
PROVIDERS: PCP Family Medicine
DX: E05.00 Thyrotoxicosis with diffuse goiter without thyrotoxic crisis or storm (principal)
CPT/HCPCS: 36415; 84439; 84443

== ENCOUNTER 2024-11-16 09:23 | Outpatient (CLI) | payer MEDICARE, SELFPAY ==
--- OUTSIDE RECORDS SUMMARY | 2024-11-16 09:31 | XMS_ITS ---
Author Organization [facility] Address [address] [place], [place] [address] Care Team Providers Care Java Lead Developer Name Role Phone DENIS MAKI Unavailable [phone] Kuldip Watt Unavailable Unavailable ADRIANE DOLL Unavailable [phone] Allergies Allergen (clinical drug ingredient) Drug/Non Drug [...] 09/20/2024 Encounters Encounter Location Date Provider Diagnosis [address] [id number] 09/20/2024 ADRIANE DOLL Primary osteoarthritis, left ankle [...] needed. Next Appt Details Provider Name:ADRIANE ODOM, 12/13/2024 12:50:00 PM, [address] [place] [address], [id number], Progress Notes * Taran FIELDSOB:[birth year] (84 yo F)Acc No.[id number]:09/20/2024 Patient: S CHUETTE, Christy Provider: Chetna DOLL :1940 A ge:84 Y S ex:Female Date:09/20/2024 Address:[address] [id number] Subjective: * Chief Complaints: * 1 [...] RT * Billing Information: * Visit Code: 21042 Office Visit, Est Pt., Level 3. * Procedure Codes: L1902 AFO ANK GAUNTLT PREFAB W/FIT&ADJ. Modifiers: RT * Electronic signature of CAMRON DOLL DPM on 11/16/2024 at 09:31 AM CDT Sign off status: Pending * Provider: Chetna DOLL Date: 0 09/20/2024 Generated for Eliseo woodruff/Justus/Alberto on: 0 11/16/2024 09:31 AM CDT History and Physical Notes * [...] and the swelling has gone. , MA: [facility] Examination Category Sub-Category Detail Notes Category Not [...]
--- OUTSIDE RECORDS SUMMARY | 2024-11-16 09:31 | XMS_ITS | Patient Health Record ---
Author Organization [facility] Address [address] [place], [place] [address] Care Team Providers Care Building Custodian Name Role Phone DENIS MAKI Unavailable [phone] Kuldip Watt Unavailable Unavailable ADRIANE DOLL Unavailable [phone] Allergies Allergen (clinical drug ingredient) Drug/Non Drug Allergy documented on EMR Reaction Allergy Type Onset Date Status amoxicillin Amoxicillin Unknown Drug Allergy Act aleida Reason For Referral No Information Medications Medication SIG (Take, Route, Frequency, Duration) [...] Eliquis 2.5 MG as directed Orally Active Immunizations Vaccine Route Administration Date Status Comme nts Zoster Unknown 04/17/2013 Administered Zoster Unknown 04/17/2013 Administered Zoster Unknown 04/17/2013 Administered Social History Tobacco Use: Social History Observation Description Date Details (start date - stop date) Never Smoker NA - NA Tobacco Control (Standard) Question Answer Notes Tobacco use: Nonsmoker Vital Signs Height-cm 152.4 cm 10/11/2024 Weight-kg 56.7 kg 10/11/2024 Height 60 in 10/11/2024 Weight 125 lbs 10/11/2024 BMI 24.41 kg/m2 10/11/2024 Encounters Encounter Location Date Provider Diagnosis [address] [id number] 09/13/2024 ADRIANE DOLL Primary osteoarthritis, left ankle and foot M19.072 ; 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), 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 and Localized edema R60.[address] [id number] 09/20/2024 ADRIANE DOLL Primary osteoarthritis, left ankle and foot M19.072 ; 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), 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 and Localized edema R60.[address] [id number] 10/11/2024 ADRIANE DOLL Primary osteoarthritis, left ankle and foot M19.072 ; Plantar fascial fibromatosis M72.2 ; 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), 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 and Localized edema R60.[address] [id number] 08/16/2024 DENIS MAKI Primary osteoarthritis, left ankle and foot M19.072 ; Pain in left ankle and joints of left foot M25.572 ; 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), right foot M21.41 ; 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), 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 and Pain in right foot M79.671 Assessments Encounter Date Diagnosis (ICD Code) Assessment Notes Treatment Notes Treatment Clinical Notes Section Notes 08/16/2024 Primary osteoarthritis, left ankle and foot (ICD-10 - M19.072) Sinus Tarsi Syndrome: I discussed anti-inflammatory treatment options and various means of immobilization with the patient. I educated the patient on icing and stretching, supportive shoegear, and the use of orthotic devices and bracing. Kenalog Injection: Following skin prep, a total of 3 ccs of a 1-1-1 mix of 0.5% marcaine plain, 1% lidocaine plain, and Kenalog was injected to the left sinus tarsi 08/16/2024 Pain in left ankle and joints of left foot (ICD-10 - M25.572) 09/13/2024 Primary osteoarthritis, left ankle and foot (ICD-10 [...] and apply compression socks and supportive shoes. 09/20/2024 Primary osteoarthritis, left ankle and foot (ICD-10 [...] unna boot was removed without incident. 10/11/2024 Primary osteoarthritis, left ankle and foot [...] for potential diuretic management if needed. 09/13/2024 Localized edema (ICD-10 - R60.0) Edema Recommendations: Advised patient on edema treatment recommendations. Recommendation for periodic elevation of feet and lower legs through the day. Recommend support compression hose. Recommend dietary restrictions salt intake. Followup with family physician for potential diuretic management if needed. 08/16/2024 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), right foot (ICD-10 - M21.41) Pes Planovalgus I discussed anti-inflammatory treatment options and various means of immobilization with the patient. I educated the patient on icing and stretching, supportive shoegear, and the use of orthotic devices and bracing. 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 Recommendation for periodic elevation of feet and lower legs through the day. Recommend support compression hose. Recommend dietary restrictions salt intake. Followup with family physician for potential diuretic management if needed. 08/16/2024 Pain in right foot (ICD-10 - M79.671) 09/13/2024 Other Pes Planovalgus I discussed anti-inflammatory treatment options and various means of immobilization with the patient. I educated the patient on icing and stretching, supportive shoegear, and the use of orthotic devices and bracing. Plan Of Treatment Next Appt Details Provider Name:ADRIANE ODOM, 12/13/2024 12:50:00 PM, [address] [place] [address], [id number], Insurance Providers Payer Name Payer Address Payer Phone Subscriber Number Group Number Insured Name Patient Relationship to Insured Coverage Start Date Coverage End Date [employer] [address] [place]EN [phone] [id number] Christy Taylor Self - patient is the insured Medical (General) History Medical History History ICD Code Leg/Feet cramps Arthritis high blood pressure Surgical History Surgery Date(Month/Year) appendectomy left knee
--- OUTSIDE RECORDS SUMMARY | 2024-11-16 09:31 | XMS_ITS ---
Author Organization [facility] Address [address] [place], [place] [address] Care Team Providers Care Structures Mechanic Name Role Phone DENIS MAKI Unavailable [phone] Kuldip Watt Unavailable Unavailable ADRIANE DOLL Unavailable [phone] Allergies Allergen (clinical drug ingredient) Drug/Non Drug [...] 09/13/2024 Encounters Encounter Location Date Provider Diagnosis [address] [id number] 09/13/2024 ADRIANE DOLL Primary osteoarthritis, left ankle [...] boot follow up, Reason: Provider Name:ADRIANE ODOM, 12/13/2024 12:50:00 PM, [address] [place] [address], [phone], Progress Notes * Taran FIELDSOB:[birth year] (84 yo F)Acc No.[id number]:09/13/2024 Patient: Christy GUZMAN Provider: Chetna DOLL :1940 A ge:84 Y S ex:Female Date:09/13/2024 Address:[address] [place], [place] [id number] Subjective: * Chief Complaints: * 1 . [...] up * Billing Information: * Visit Code: 75463 Office Visit, Est Pt., Level 3. * Procedure Codes: * Electronic signature of CAMRON DOLL DPM on 11/16/2024 at 09:30 AM CDT Sign off status: Pending * Provider: Chetna DOLL Date: 0 09/13/2024 Generated for Eliseo Conner/Alberto on: 0 11/16/2024 09:30 AM CDT History and Physical Notes * [...]
--- OUTSIDE RECORDS SUMMARY | 2024-11-16 09:31 | XMS_ITS | Clinical Summary ---
Author Organization [facility] Address [address] [place] [address] Care Team Providers Care Coring Machine Operator Name Role Phone Kuldip Wattrish Primary [...] 05/27/2024 Assessment & Plan (05/29/2024 12:05 PM REDUCING SYSTEM OPERATOR): - in workup for Afib noted [...] 05/26/2024 Assessment & Plan (05/29/2024 12:01 PM REDUCING SYSTEM OPERATOR): - ENT was consulted from ED [...] 05/26/2024 Assessment & Plan (05/26/2024 11:19 AM REDUCING SYSTEM OPERATOR): -continue home losartan hctz -ctm Atrial fibrillation 05/26/2024 Assessment & Plan (05/29/2024 12:03 PM REDUCING SYSTEM OPERATOR): - EKG with AF w rate 114 - Per daughter at bedside 05/26, this is not a new diagnosis but pt denies. On clarification 05/27, daughter says that it was another family member and the patient has not had prior dx of afib Patient has not been on anticoagulation in the past. Is agreeable to long term care phlebotomist AC. No sig bleeding hx or hx [...] 05/26/2024 Assessment & Plan (05/26/2024 11:20 AM REDUCING SYSTEM OPERATOR): Pulmonary nodules, for example right upper [...] (05/26/2024): Added automatically from request for surgery [id number] Bilateral knee pain 02/04/2022 Encounters Date Type Department Care Team Description 09/14/2024 8:00 AM CDT Office Visit [facility] Endocrinology Metabolism and Lipid [address] [facility] 13[address] [place] [address] [place] [address] Kika Goodman MD PhD Graves disease from Last 3 Months Immunizations Immunization Administration Dates Next Due ZOSTER LIVE 04/17/2013 Surgical History Surgery Date Site/Laterality Comments REPLACEMENT TOTAL KNEE 04/18/2021 - 04/17/2022 Left Family History Medical History Relation Name Comments Hyperthyroidism Daughter Carlene s/p MARTIN Relation Name Status Comments Daughter Carlene Alive Social History Tobacco Use Types Packs/Day Years Used Date Smoking Tobacco: Never [employer] Util[employer] Answer Date Recorded In the past 12 months has [employer], gas, oil, or water [employer] threatened to shut off services in your [...] often do you attend chur ch or anabaptism services? More than 4 times per year 05/30/2024 Do you belong to any clubs o r organizations such as sikh groups, unions, fraternal or athletic groups, or [...] any time in the past 12 [facility], were you homeless or living in a group home (including now)? No 05/30/2024 Personal Safety Answer Date Recorded Have you ever been in or are you currently in a harmful physical or emotional relationship or is someone making you feel afraid or unsafe? Denies 05/26/2024 Comments Unknown Sex and Gender Information Value Date Recorded Sex Assigned at Not on file Legal Sex Female 5:17 PM REDUCING SYSTEM OPERATOR Gender Identity Not on file Sexual Orientation Not on file Obstetrics History Last Filed Vital Signs Vital Sign Reading Time Taken Comments Blood Pressure 125/84 09/14/2024 7:51 AM CDT Pulse 87 09/14/2024 7:51 AM CDT Temperature 36.8 C (98.3 F) 09/14/2024 7:51 AM CDT Respiratory Rate 16 05/29/2024 2:25 PM REDUCING SYSTEM OPERATOR Oxygen Saturation 100% 05/29/2024 2:25 PM REDUCING SYSTEM OPERATOR Inhaled Oxygen Concentration - - Weight 60.8 kg (134 lb) 09/14/2024 7:51 AM CDT Height 149.9 cm (4' 11) 09/14/2024 7:51 AM CDT Body Mass Index 27.06 09/14/2024 7:51 AM CDT Plan of Treatment Health Maintenance Due Date Last Done Comments Depression Screening 1940 Osteoporosis Screening-Bone Density Scan 1940 DTaP/Tdap/Td Vaccine (1 - Tdap) 1953 Hepatitis B Screening 1960 Pneumococcal vaccine 65+ (1 of 2 - PCV) 1961 Well Visit 65+ 2007 Zoster Vaccine (2 of 3) 06/12/2013 04/17/2013 Influenza Vaccine (#1) 2024 Fall Risk Assessment 05/29/2025 05/29/2024 Procedures Procedure Name Priority Date/Time Associated Diagnosis Comments TSH Routine 09/11/2024 11:30 AM CDT Graves disease from Last 3 Months Results * TSH (09/11/2024 11:30 AM CDT) Blood us Kika Abrams MD PhD LAB BLOOD ORDERABLES Final Result EXTERNAL LAB from Last [address] [facility] MEDICARE T MEDICARE Advance Directives For more information, please contact: [phone] * LIMITED - No CPR (Latest Code Status on File) Date Activated Date Inactivated Comments 05/26/2024 11:11 AM 05/29/2024 6:50 PM Question Answer Comments Provide aggressive medical m anagement before a full cardiopulmonary arrest occurs. Use antibiotics, IV Fluids, and medical treatment unless specifically selected below: No intubation Care Teams Coring Machine Operator Relationship Specialty Start Date End Date Kuldip Watt DO [address] [place] [address] PCP - General Family Medicine 05/25/24
--- OUTSIDE RECORDS SUMMARY | 2024-11-16 09:31 | XMS_ITS | Referral Summary ---
Author Organization [facility] Address [address] [place] [address] Care Team Providers Care Gymnastics Instructor Name Role Phone HattieKuldip montoya Primary Care Provider Encounters Date Type Department Care Team Description 09/14/2024 8:00 AM CDT Office Visit [facility] Endocrinology Metabolism and Lipid [address] [facility] 13th [place] [address] [place] [address] Kika Goodman MD PhD Graves disease from Last 3 Months Allergies Active Allergy [...] 05/27/2024 Assessment & Plan (05/29/2024 12:05 PM CORRESPONDENCE SCHOOL INSTRUCTOR): - in workup for Afib noted [...] 05/26/2024 Assessment & Plan (05/29/2024 12:01 PM CORRESPONDENCE SCHOOL INSTRUCTOR): - ENT was consulted from ED [...] 05/26/2024 Assessment & Plan (05/26/2024 11:19 AM CORRESPONDENCE SCHOOL INSTRUCTOR): -continue home losartan hctz -ctm Atrial fibrillation 05/26/2024 Assessment & Plan (05/29/2024 12:03 PM CORRESPONDENCE SCHOOL INSTRUCTOR): - EKG with AF w rate 114 - Per daughter at bedside 05/26, this is not a new diagnosis but pt denies. On clarification 05/27, daughter says that it was another family member and the patient has not had prior dx of afib Patient has not been on anticoagulation in the past. Is agreeable to multi share program coordinator AC. No sig bleeding hx or hx [...] 05/26/2024 Assessment & Plan (05/26/2024 11:20 AM CORRESPONDENCE SCHOOL INSTRUCTOR): Pulmonary nodules, for example right upper [...] (05/26/2024): Added automatically from request for surgery [id number] Bilateral knee pain 02/04/2022 Immunizations Immunization Administration Dates Next Due ZOSTER LIVE 04/17/2013 Social History Tobacco Use Types Packs/Day Years Used Date Smoking Tobacco: Never [employer] Utilities Answer Date Recorded In the past 12 months has e [employer], gas, oil, or water Domains Income threatened to shut off services in your [...] often do you attend chur ch or nondenominational services? More than 4 times per year 05/30/2024 Do you belong to any clubs o r organizations such as anabaptism groups, unions, fraternal or athletic groups, or [...] any time in the past 12 m [facility], were you homeless or living in a skilled nursing (including now)? No 05/30/2024 Personal Safety Answer Date Recorded Have you ever been in or are you currently in a harmful physical or emotional relationship or is someone making you feel afraid or unsafe? Denies 05/26/2024 Comments Unknown Sex and Gender Information Value Date Recorded Sex Assigned at Not on file Legal Sex Female 5:17 PM CORRESPONDENCE SCHOOL INSTRUCTOR Gender Identity Not on file Sexual Orientation Not on file Last Filed Vital Signs Vital Sign Reading Time Taken Comments Blood Pressure 125/84 09/14/2024 7:51 AM CDT Pulse 87 09/14/2024 7:51 AM CDT Temperature 36.8 C (98.3 F) 09/14/2024 7:51 AM CDT Respiratory Rate 16 05/29/2024 2:25 PM CORRESPONDENCE SCHOOL INSTRUCTOR Oxygen Saturation 100% 05/29/2024 2:25 PM CORRESPONDENCE SCHOOL INSTRUCTOR Inhaled Oxygen Concentration - - Weight 60.8 kg (134 lb) 09/14/2024 7:51 AM CDT Height 149.9 cm (4' 11) 09/14/2024 7:51 AM CDT Body Mass Index 27.06 09/14/2024 7:51 AM CDT Plan of Treatment Not on file Procedures Procedure Name Priority Date/Time Associated Diagnosis Comments TSH Routine 09/11/2024 11:30 AM CDT Graves disease from Last 3 Months Results * TSH (09/11/2024 11:30 AM CDT) Blood us Kika Abrams MD PhD LAB BLOOD ORDERABLES Final Result EXTERNAL LAB from Last 3 Months Insurance T MEDICARE [facility] MEDICARE Address: [facility] [id number] [place] [id number] [employer] MEDICARE Advance Directives For more information, please contact: [phone] * LIMITED - No CPR (Latest Code Status on File) Date Activated Date Inactivated Comments 05/26/2024 11:11 AM 05/29/2024 6:50 PM Question Answer Comments Provide aggressive medical m anagement before a full cardiopulmonary arrest occurs. Use antibiotics, IV Fluids, and medical treatment unless specifically selected below: No intubation Care Teams Gymnastics Instructor Relationship Specialty Start Date End Date Kuldip Watt DO [address] [place] [address] PCP - General Family Medicine 05/25/24
--- OUTSIDE RECORDS SUMMARY | 2024-11-16 09:31 | XMS_ITS ---
Author Organization [facility] Address [address] [place], [place] [address] Care Team Providers Care Pmo Business Analyst Name Role Phone DENIS MAKI Unavailable [phone] Kuldip Watt Unavailable Unavailable ADRIANE DOLL Unavailable [phone] Allergies Allergen (clinical drug ingredient) Drug/Non Drug [...] 10/11/2024 Encounters Encounter Location Date Provider Diagnosis [address] [id number] 10/11/2024 ADRIANE DOLL Primary osteoarthritis, left ankle [...] Reason: heel pain check Provider Name:ADRIANE ODOM, 12/13/2024 12:50:00 PM, [address] [place] [address], [id number], Progress Notes * DIAMONDRegine CASTROAnmolOB:[birth year] (84 yo F)Acc No.[id number]:10/11/2024 Patient: Roque ANA MARIATania BLANCelyn Provider: Chetna DOLL :1940 A ge:84 Y S ex:Female Date:10/11/2024 Address:[address] [place], [place] [id number] Subjective: * Chief Complaints: * 1 . [...] Information: * Visit Code: * Procedure Codes: 87016 INJ TENDON SHEATH/LIGAMENT. Modifiers: LT * Electronic signature of CAMRON DOLL DPM on 11/16/2024 at 09:31 AM CDT Sign off status: Pending * Provider: Chetna DOLL Date: 0 10/11/2024 Generated for Eliseo Conner/Alberto on: 0 11/16/2024 09:31 AM CDT History [...]
[2024-11-16 11:10] LABS: Thyroid Stimulating Hormone Reflex 9.880 uIU/mL (0.465-4.68)
[2024-11-16 11:42] LABS: Free T4 Free Thyroxine Reflex 0.57 ng/dL (0.78-2.19)
== END 2024-11-16 09:24 | disposition home or self-care (01) ==
PROVIDERS: PCP Family Medicine
DX: E05.00 Thyrotoxicosis with diffuse goiter without thyrotoxic crisis or storm (principal)
CPT/HCPCS: 36415; 84439; 84443; 86376

== ENCOUNTER 2025-01-11 07:09 | Outpatient (CLI) | payer MEDICARE, SELFPAY ==
--- OUTSIDE RECORDS SUMMARY | 2024-09-13 07:40 | XMS_ITS ---
Author Organization [facility] Address [address] [place], [place] [id number] Care Team Providers Care Train Caller Name Role Phone DENIS MAKI Unavailable [phone] Kuldip Watt Unavailable Unavailable ADRIANE DOLL Unavailable [phone] Allergies Allergen (clinical drug ingredient) Drug/Non Drug Allergy documented on EMR Reaction Allergy Type Onset Date Status amoxicillin Amoxicillin Unknown Drug Allergy Act aleida REASON FOR VISIT *Ankle check Medications Medication SIG (Take, Route, Frequency, Duration) Notes Start Date End Date Status amLODIPine Besylate 5 MG 1 tablet Orally Once a day Active methIMAzole 5 MG 1 tablet Orally Once a day Active Metoprolol Succinate 25 MG 1 capsule Ora lly Once a day Active Losartan Potassium 100 MG 1 tablet Orall y Once a day Active Eliquis 2.5 MG as directed Orally Active Vital Signs Height 60 in 09/13/2024 Weight 125 lbs 09/13/2024 BMI 24.41 kg/m2 09/13/2024 Height-cm 152.4 cm 09/13/2024 Weight-kg 56.7 kg 09/13/2024 Encounters Encounter Location Date Provider Diagnosis [address] [id number] 09/13/2024 ADRIANE DOLL Primary osteoarthritis, left ankle [...] boot follow up, Reason: Provider Name:ADRIANE ODOM, 02/14/2025 12:50:00 PM, [address] [place] [address], [id number], Progress Notes * Taran FIELDSOB:[birth year] (84 yo F)Acc No.[id number]:09/13/2024 Patient: Christy GUZMAN Provider: Chetna DOLL :1940 A ge:84 Y S ex:Female Date:09/13/2024 Address:[address] [place], [place] [id number] Subjective: * Chief Complaints: * 1 . *Ankle check. * HPI: H PI: Follow Up Visit P emely presents for follow-up visit for left ankle. [...] confusion, difficulty speaking, dizziness. * Medical History: L eg/Feet cramps, Arthritis, High blood pressure. * Surgical History: a ppendectomy , left knee . * Family History: N o Family History documented.. * Medications: T aking Metoprolol Succinate 25 MG Capsule ER 24 Hour Sprinkle 1 capsule Orally Once a day , Taking methIMAzole 5 MG Tablet 1 tablet Orally Once a day , Taking Eliquis 2.5 MG Tablet as directed Orally , Taking Losartan Potassium 100 MG Tablet 1 tablet Orally Once a day , Taking amLODIPine Besylate 5 MG Tablet 1 tablet Orally Once a day , Medication List reviewed and reconciled with the patient * Allergies: A moxicillin: Allergy. Objective: * Vitals: S hoe Size: 7, [...] Week,2 Weeks,get otc orthotics,unna boot follow up * Billing Information: * Visit Code: 19057 Office Visit, Est Pt., Level 3. * Procedure Codes: * Electronic signature of CAMRON DOLL DPM on 01/11/2025 at 07:15 AM CDT Sign off status: Pending * Provider: Chetna DOLL Date: 0 09/13/2024 Generated for Eliseo Conner/Alberto on: 0 01/11/2025 07:15 AM CDT History and Physical Notes * HPI (History [...]
--- OUTSIDE RECORDS SUMMARY | 2024-09-20 07:40 | XMS_ITS ---
Author Organization [facility] Address [address] [place], [place] [address] Care Team Providers Care Brakes Inspector Name Role Phone DENIS MAKI Unavailable [phone] Kuldip Watt Unavailable Unavailable ADRIANE DOLL Unavailable [phone] Allergies Allergen (clinical drug ingredient) Drug/Non Drug Allergy documented on EMR Reaction Allergy Type Onset Date Status amoxicillin Amoxicillin Unknown Drug Allergy Act aleida REASON FOR VISIT unna boot follow up Medications Medication SIG (Take, Route, Frequency, Duration) Notes Start Date End Date Status Losartan Potassium 100 MG 1 tablet Orall y Once a day Active Eliquis 2.5 MG as directed Orally Active methIMAzole 5 MG 1 tablet Orally Once a day Active Metoprolol Succinate 25 MG 1 capsule Ora lly Once a day Active amLODIPine Besylate 5 MG 1 tablet Orally Once a day Active Social History Tobacco Use: Social History Observation Description Date Details (start date - stop date) Never Smoker NA - NA Tobacco Control (Standard) Question Answer Notes Tobacco use: Nonsmoker Vital Signs Height 60 in 09/20/2024 Weight 125 lbs 09/20/2024 BMI 24.41 kg/m2 09/20/2024 Height-cm 152.4 cm 09/20/2024 Weight-kg 56.7 kg 09/20/2024 Encounters Encounter Location Date Provider Diagnosis [address] [id number] 09/20/2024 ADRIANE DOLL Primary osteoarthritis, left ankle [...] if needed. Next Appt Details Provider Name:ADRIANE ODOM, 02/14/2025 12:50:00 PM, [address] [place] [address], [id number], Progress Notes * Taran FIELDSOB:[birth year] (84 yo F)Acc No.[id number]:09/20/2024 Patient: S CHUETTE, Christy Provider: Chetna DOLL :1940 A ge:84 Y S ex:Female Date:09/20/2024 Address:[address] [id number] Subjective: * Chief Complaints: * 1 . Unna boot follow up. * HPI: H PI: Follow Up Visit P emely presents for follow-up visit for left ankle pain, the unna boot helped. Patient states that the foot felt better for the 3 days she had the bandage on, but her pain has returned. She states that she has been wearing her compression socks and the swelling has gone. , MA: lissy. * ROS: G eneral / Constitutional: [...] a ppendectomy , left knee . * Social History: T obacco Use: T obacco Control (Standard) T obacco use: N onsmoker. * Medications: T aking Metoprolol Succinate 25 [...] updated. * Procedure Codes: L 1902 AFO IRENE GAUNTLT PREFAB W/FIT&ADJ, Modifiers: RT * Billing Information: * Visit Code: 59999 Office Visit, Est Pt., Level 3. * Procedure Codes: L1902 AFO ANK GAUNTLT PREFAB W/FIT&ADJ. Modifiers: RT * Electronic signature of CAMRON DOLL DPM on 01/11/2025 at 07:14 AM CDT Sign off status: Pending * Provider: Chetna DOLL Date: 0 09/20/2024 Generated for Eliseo woodruff/Justus/Elmoitting on: 0 01/11/2025 07:14 AM CDT History and Physical Notes * [...] socks and the swelling has gone. , MA: [facility] Examination Category Sub-Category Detail Notes Category Not [...]
--- OUTSIDE RECORDS SUMMARY | 2024-10-11 07:40 | XMS_ITS ---
Author Organization [facility] Address [address] [place], [place] [address] Care Team Providers Care Coal Wheeler Name Role Phone DENIS MAKI Unavailable [phone] Kuldip Watt Unavailable Unavailable ADRIANE DOLL Unavailable [phone] Allergies Allergen (clinical drug ingredient) Drug/Non Drug Allergy documented on EMR Reaction Allergy Type Onset Date Status amoxicillin Amoxicillin Unknown Drug Allergy Act aleida REASON FOR VISIT ARTHRITIS CHECK Medications Medication SIG (Take, Route, Frequency, Duration) Notes Start Date End Date Status Losartan Potassium 100 MG 1 tablet Orall y Once a day Active amLODIPine Besylate 5 MG 1 tablet Orally Once a day Active Metoprolol Succinate 25 MG 1 capsule Ora lly Once a day Active methIMAzole 5 MG 1 tablet Orally Once a day Active Eliquis 2.5 MG as directed Orally Active Social History Tobacco Use: Social History Observation Description Date Details (start date - stop date) Never Smoker NA - NA Tobacco Control (Standard) Question Answer Notes Tobacco use: Nonsmoker Vital Signs Height 60 in 10/11/2024 Weight 125 lbs 10/11/2024 BMI 24.41 kg/m2 10/11/2024 Height-cm 152.4 cm 10/11/2024 Weight-kg 56.7 kg 10/11/2024 Encounters Encounter Location Date Provider Diagnosis [address] [id number] 10/11/2024 ADRIANE DOLL Primary osteoarthritis, left ankle [...] Reason: heel pain check Provider Name:ADRIANE ODOM, 02/14/2025 12:50:00 PM, [address] [place] [address], [id number], Progress Notes * DIAMONDRegine CASTROAnmolOB:[birth year] (84 yo F)Acc No.[id number]:10/11/2024 Patient: Roque ANA MARIATania BLANCelyn Provider: Chetna DOLL :1940 A ge:84 Y S ex:Female Date:10/11/2024 Address:[address] [place], [place] [id number] Subjective: * Chief Complaints: * 1 . ARTHRITIS CHECK. * HPI: H PI: Follow Up Visit [...] Up: 2 Months (Reason: heel pain check) * Billing Information: * Visit Code: * Procedure Codes: 78436 INJ TENDON SHEATH/LIGAMENT. Modifiers: LT * Electronic signature of CAMRON DOLL DPM on 01/11/2025 at 07:15 AM CDT Sign off status: Pending * Provider: Chetna DOLL Date: 0 10/11/2024 Generated for Eliseo Conner/Alberto on: 0 01/11/2025 [...] she is not sure why. , MA: [facility] Examination Category Sub-Category Detail Notes Category Not [...]
--- OUTSIDE RECORDS SUMMARY | 2024-12-13 07:50 | XMS_ITS ---
Author Organization [facility] Address [address] [place], [place] [address] Care Team Providers Care Dramatic Teacher Name Role Phone DENIS MAKI Unavailable [phone] Kuldip Watt Unavailable Unavailable ADRIANE DOLL Unavailable [phone] Allergies Allergen (clinical drug ingredient) Drug/Non Drug Allergy documented on EMR Reaction Allergy Type Onset Date Status amoxicillin Amoxicillin Unknown Drug Allergy Act aleida REASON FOR VISIT ARTHRITIS FOLLOWUP Medications Medication SIG (Take, Route, Frequency, Duration) Notes Start Date End Date Status amLODIPine Besylate 5 MG 1 tablet Orally Once a day Active Losartan Potassium 100 MG 1 tablet Orall y Once a day Active Metoprolol Succinate 25 MG 1 capsule Ora lly Once a day Active Eliquis 2.5 MG as directed Orally Active methIMAzole 5 MG 1 tablet Orally Once a day Active Vital Signs Height 60 in 12/13/2024 Weight 125 lbs 12/13/2024 BMI 24.41 kg/m2 12/13/2024 Height-cm 152.4 cm 12/13/2024 Weight-kg 56.7 kg 12/13/2024 Encounters Encounter Location Date Provider Diagnosis [address] [id number] 12/13/2024 ADRIANE DOLL Primary osteoarthritis, left ankle [...] Months, Reason: heel pain check Provider Name:ADRIANE V MATIAS ODOM, 02/14/2025 12:50:00 PM, [address] [place] [address], [id number], Progress Notes * Taran FIELDSOB:[birth year] (84 yo F)Acc No.[id number]:12/13/2024 Patient: Christy GUZMAN Provider: Chetna DOLL :1940 A ge:84 Y S ex:Female Date:12/13/2024 Address:[address] [facility] Subjective: * Chief Complaints: * 1 . ARTHRITIS FOLLOWUP. * HPI: H PI: Follow Up Visit [...] a ppendectomy , left knee . * Hospitalization/Major Diagno stic Procedure: D enies Past Hospitalization. * Family History: N o Family History [...] for potential diuretic management if needed. * Follow Up: 2 Months (Reason: heel pain check) * Billing Information: * Visit Code: 02810 Office Visit, Est Pt., Level 3. * Procedure Codes: * Electronic signature of CAMRON DOLL DPM on 01/11/2025 at 07:15 AM CDT Sign off status: Pending * Provider: Chetna DOLL Date: 0 12/13/2024 Generated for Eliseo woodruff/Justus/Alberto on: 0 01/11/2025 07:15 AM CDT History [...]
--- OUTSIDE RECORDS SUMMARY | 2025-01-11 07:15 | XMS_ITS | Encounter Summary ---
Author Organization [facility] Address [address] [place] [address] Phone Care Team Providers Care Dedicated Driver Name Role Phone Kuldip Watt DO Primary Care Provider Encounter Details Date Type Department Care Team (Latest Contact Info) Description 11/19/2024 Results Follow-Up [facility] Metabolism and Lipid [address] [facility] 13th [place] [address] [place] [address] Kika Goodman MD PhD [address] [place] [address] Thyroid Function [place] Social History Tobacco Use Types Packs/Day Years Used Date Smoking Tobacco: Never [facility] Utilities Answer Date Recorded In the past 12 months has [employer], gas, oil, or water [employer] threatened to shut off services in your home? No 05/30/2024 Social Connection and Isolation Panel Answer Date Recorded In a typical week, how many times do you talk on the phone with family, friends, or neighbors? Twice a week 05/30/2024 How often do you get togethe r with friends or relatives? More than three times a week 05/30/2024 How often do you attend chur ch or confucianism services? More than 4 times per year 05/30/2024 Do you belong to any clubs o r organizations such as jewish groups, unions, fraternal or athletic groups, or [...] any time in the past 12 m [facility], were you homeless or living in a long-term (including now)? No 05/30/2024 Personal Safety Answer Date Recorded Have you ever been in or are you currently in a harmful physical or emotional relationship or is someone making you feel afraid or unsafe? 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 Decrease methimazole to 10 mg daily, repeat TFTs in 6-8 weeks. documented in this encounter Plan of Treatment Scheduled Orders Name Type Priority Associated Diagnoses Orde r Schedule TSH Lab Routine Graves disease Expected: 12/31/2024 (Approximate), Expires: 11/19/2025 T4, free Lab Routine Graves disease Expected: 12/31/2024 (Approximate), Expires: 11/19/2025 documented as of this encounter Visit Diagnoses Diagnosis Graves disease Toxic diffuse goiter without mention of thyrotoxic crisis or storm documented in this encounter Discontinued Medications Medication Sig Discontinue Reason Start Date End Da te methIMAzole (TAPAZOLE) 10 mg tabletIndications:Graves disease Take 1.5 tablets (15 mg total) by mouth daily Reorder 08/10/2024 11/19/2024 documented as of this encounter Care Teams Dedicated Driver Relationship Specialty Start Date End Date Kuldip Watt DO [address] [place] [address] PCP - General Family Medicine 05/25/24 documented as of this encounter
--- OUTSIDE RECORDS SUMMARY | 2025-01-11 07:15 | XMS_ITS | Patient Health Record ---
Author Organization [facility] Address [address] [place], [place] [address] Care Team Providers Care Counseling Program Leader Name Role Phone DENIS MAKI Unavailable [phone] Kuldip Watt Unavailable Unavailable ADRIANE DOLL Unavailable [phone] Allergies Allergen (clinical drug ingredient) Drug/Non Drug [...] 1 tablet Orally Once a day Active Immunizations Vaccine Route Administration Date Status Comme nts Zoster Unknown 04/17/2013 Administered Zoster Unknown 04/17/2013 Administered Zoster Unknown 04/17/2013 Administered Social History Tobacco Use: Social History Observation Description Date Details (start date - stop date) Never Smoker NA - NA Tobacco Control (Standard) Question Answer Notes Tobacco use: Nonsmoker Vital Signs Height-cm 152.4 cm 12/13/2024 Weight-kg 56.7 kg 12/13/2024 Height 60 in 12/13/2024 Weight 125 lbs 12/13/2024 BMI 24.41 kg/m2 12/13/2024 Encounters Encounter Location Date Provider Diagnosis [address] [id number] 09/13/2024 ADRIANE DOLL Primary osteoarthritis, left ankle and foot M19.072 ; 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), 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 and Localized edema R60.[address] [id number] 09/20/2024 ADRIANE DOLL Primary osteoarthritis, left ankle and foot M19.072 ; 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), 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 and Localized edema R60.[address] [id number] 10/11/2024 ADRIANE DOLL Primary osteoarthritis, left ankle and foot M19.072 ; Plantar fascial fibromatosis M72.2 ; 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 10/11/2024 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), left [...] physician for potential diuretic management if needed. 12/13/2024 Localized edema (ICD-10 - R60.0) Edema [...] Treatment Next Appt Details Provider Name:ADRIANE ODOM, 02/14/2025 12:50:00 PM, [address] [place] [address], [id number], Insurance Providers Payer Name Payer Address Payer Phone Subscriber Number Group Number Insured Name Patient Relationship to Insured Coverage Start Date Coverage End Date [employer] [address] [place] [phone] [id number] Christy Taylor Self - patient is the insured Medical (General) History Medical History History ICD Code Leg/Feet cramps Arthritis high blood pressure Surgical History Surgery Date(Month/Year) appendectomy left knee
--- OUTSIDE RECORDS SUMMARY | 2025-01-11 07:15 | XMS_ITS | Clinical Summary ---
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 Gender Identity Not on file Sexual Orientation Not on file Last Filed Vital Signs Vital Sign Reading Time Taken Comments Blood Pressure 136/71 03/09/2022 1:14 PM PARK MAINTAINER Pulse 69 03/09/2022 1:14 PM PARK MAINTAINER Temperature 36.3 C (97.3 F) 03/09/2022 1:14 PM PARK MAINTAINER Respiratory Rate 16 03/09/2022 1:14 PM PARK MAINTAINER Oxygen Saturation 96% 03/09/2022 1:14 PM PARK MAINTAINER Inhaled Oxygen Concentration - - Weight 64.4 kg (142 lb) 11/30/2022 9:56 AM CDT Height 149.9 cm (4' 11) 11/30/2022 9:56 AM CDT Body Mass Index [...] - 1-dose 75+ series) 2017 COVID-19 Vaccine ( - 2023-2 5 season) 2024 Meningococcal B Vaccine Aged Out No [...] Kennedy, RN Medical Devices Implanted Type Area Rivet Machine Operator Device Identifier Shelf Expiration Date Model / Serial / Lot Cement Simplex Hv W/Gentamicin - [id number] Implanted:Qty: 1 on 03/08/2022 by Franky Layton MD at [facility] Cement Implant Left: Knee [employer] - DIV GUS TY 07/17/2023 [id number] D Cement Simplex Hv W/Gentamicin - [id number] Implanted:Qty: 1 on 03/08/2022 by Franky Layton MD at [facility] Cement Implant Left: Knee [employer] - DIV GUS TY 07/17/2023 [id number] D Attune Femoral Cruciate Retaining Implanted:Qty: 1 on 03/08/2022 by Franky Layton MD at [facility] Left: Knee [employer] - [employer]A [employer] DAY[employer] 09/16/2031 1504-00-1 05 / / [id number] Attune Knee System Revision Tibial Base Fixed Bearing Implanted:Qty: 1 on 03/08/2022 by Franky Layton MD at [facility] Left: Knee [employer] [id number] 12/17/2031 1506-40-0 05 / / [id number] Attune Patella Medialized Dome Implanted:Qty: 1 on 03/08/2022 by Franky Layton MD at [facility] Left: Knee [employer] 06/15/2026 1518-20-0 32 / / [id number] Attune Knee System Tibial Insert Fixed Bearing Cruciate Retaining Implanted:Qty: 1 on 03/08/2022 by Franky Layton MD at [facility] Left: Knee 06/15/2026 1516-20-5 08 / / [id number] Insurance [employer] Advance Directives Documents on File Type Date Recorded 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
--- OUTSIDE RECORDS SUMMARY | 2025-01-11 07:15 | XMS_ITS | Clinical Summary ---
Author Organization [facility] Address [address] [place] [address] Care Team Providers Care Rectification Printer Name Role Phone Kuldip Wattrish Primary Care [...] 3 06/15/2024 Active methIMAzole (TAPAZOLE) 10 mg tabletIndication s:Graves disease Take 1 tablet (10 mg total) by mouth daily 90 tablet 3 11/19/2024 Active Active Problems Problem Noted Date Diagnosed Date Low TSH level 05/27/2024 Assessment & Plan (05/29/2024 12:05 PM SALES BROKER): - in workup for Afib noted TSH [...] 05/26/2024 Assessment & Plan (05/29/2024 12:01 PM SALES BROKER): - ENT was consulted from ED and [...] 05/26/2024 Assessment & Plan (05/26/2024 11:19 AM SALES BROKER): -continue home losartan hctz -ctm Atrial fibrillation 05/26/2024 Assessment & Plan (05/29/2024 12:03 PM SALES BROKER): - EKG with AF w rate 114 - Per daughter at bedside 05/26, this is not a new diagnosis but pt denies. On clarification 05/27, daughter says that it was another family member and the patient has not had prior dx of afib Patient has not been on anticoagulation in the past. 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 No sig bleeding hx or [...] 05/26/2024 Assessment & Plan (05/26/2024 11:20 AM SALES BROKER): Pulmonary nodules, for example right upper lobe [...] (05/26/2024): Added automatically from request for surgery [id number] Bilateral knee pain 02/04/2022 Encounters Date Type Department Care Team Description 11/19/2024 Results Follow-Up [facility] Endocrinology Metabolism and Lipid [address] [facility] [address] [place] [address] [place] [phone] Kika Goodman MD PhD Thyroid Function Yancey 11/19/2024 Orders Only [facility] Endocrinology Metabolism and Lipid [address] [facility] [address] [facility] [address] [place] [address] [place] [phone] Provider, MD Dawn from Last 3 Months Immunizations Immunization Administration Dates Next Due ZOSTER LIVE 04/17/2013 Surgical History Surgery Date Site/Laterality Comments REPLACEMENT TOTAL KNEE 04/18/2021 - 04/17/2022 Left Family History Medical History Relation Name Comments Hyperthyroidism Daughter Carlene s/p MARTIN Relation Name Status Comments Daughter Carlene Alive Social History Tobacco Use Types Packs/Day Years Used Date Smoking Tobacco: Never [facility] Utilities Answer Date Recorded In the past [...] often do you attend chur ch or religion services? More than 4 times per year [...] were you homeless or living in a usp (including now)? No 05/30/2024 Personal Safety Answer Date Recorded Have you ever been in or are you currently in a harmful physical or emotional relationship or is someone making you feel afraid or unsafe? 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 Gender Identity Not on file Sexual Orientation Not on file Obstetrics History Last Filed Vital Signs Vital Sign Reading Time Taken Comments Blood Pressure 125/84 09/14/2024 7:51 AM CDT Pulse 87 09/14/2024 7:51 AM CDT Temperature 36.8 C (98.3 F) 09/14/2024 7:51 AM CDT Respiratory Rate 16 05/29/2024 2:25 PM SALES BROKER Oxygen Saturation 100% 05/29/2024 2:25 PM SALES BROKER Inhaled Oxygen Concentration - - Weight 60.8 [...] Procedure Name Priority Date/Time Associated Diagnosis Comments TPO - THYROID PEROXIDASE ANTIBODY Routine 11/16/2024 2:11 PM CDT THYROID FUNCTION CASCADE Routine 11/16/2024 2:10 PM CDT Graves disease from Last 3 Months Results * TPO - Thyroid Peroxidase Antibody (11/16/2024 2:11 PM CDT) us Historical Provider LAB BLOOD ORDERABLES Abbi l Result EXTERNAL LAB * Thyroid Function Yancey (11/16/2024 2:10 PM CDT) Blood Kika Abrams MD PhD LAB BLOOD ORDERABLES Final Result Performing Organization Address City/[facility]/ZIP Co de Phone Number EXTERNAL LAB from Last 3 Months Insurance [employer] MEDICARE Advance Directives For more information, please contact: [phone] * LIMITED - No CPR (Latest Code Status on File) Date Activated Date Inactivated Comments 05/26/2024 11:11 AM 05/29/2024 6:50 PM Question Answer Comments Provide aggressive medical m anagement before a full cardiopulmonary arrest occurs. Use antibiotics, IV Fluids, and medical treatment unless specifically selected below: No intubation Care Teams Rectification Printer Relationship Specialty Start Date End Date Kuldip Watt DO [facility] [place] [address] PCP - General Family Medicine 05/25/24
[2025-01-11 08:36] LABS: Free T4 Free Thyroxine 0.46 ng/dL (0.78-2.19)
[2025-01-11 08:50] LABS: Thyroid Stimulating Hormone 30.900 uIU/mL (0.465-4.680)
== END 2025-01-11 07:10 | disposition home or self-care (01) ==
LOC: CHSLAB 07:12
PROVIDERS: PCP Family Medicine
DX: E05.00 Thyrotoxicosis with diffuse goiter without thyrotoxic crisis or storm (principal)
CPT/HCPCS: 36415; 84439; 84443

== ENCOUNTER 2025-03-05 08:14 | Outpatient (CLI) | payer MEDICARE, SELFPAY ==
[2025-03-05 09:11] LABS: Free T4 Free Thyroxine 0.52 ng/dL (0.78-2.19)
[2025-03-05 09:24] LABS: Thyroid Stimulating Hormone 35.800 uIU/mL (0.465-4.680)
== END 2025-03-05 08:15 | disposition home or self-care (01) ==
LOC: CHSLAB 08:17
PROVIDERS: PCP Family Medicine
DX: E05.00 Thyrotoxicosis with diffuse goiter without thyrotoxic crisis or storm (principal)
CPT/HCPCS: 36415; 84439; 84443

== ENCOUNTER 2025-04-16 08:22 | Outpatient (CLI) | payer MEDICARE, SELFPAY ==
--- OUTSIDE RECORDS SUMMARY | 2024-09-13 06:40 | XMS_ITS ---
Author Organization [facility] Address [address] [place], [place] [address] Care Team Providers Care Concentrator Operator Name Role Phone DENIS MAKI Unavailable [phone] Kuldip Watt Unavailable Unavailable ADRIANE DOLL Unavailable [phone] Allergies Allergen (clinical drug ingredient) Drug/Non Drug Allergy documented on EMR Reaction Allergy Type Onset Date Status amoxicillin Amoxicillin Unknown Drug Allergy Act aleida REASON FOR VISIT *Ankle check Medications Medication SIG (Take, Route, Frequency, Duration) Notes Start Date End Date Status amLODIPine Besylate 5 MG Tablet 1 tablet Orally Once a day Active methIMAzole 5 MG Tablet 1 tablet Orally Once a day Active Metoprolol Succinate 25 MG Capsule ER 24 Hour Sprinkle 1 capsule Orally Once a day Active Losartan Potassium 100 MG Tablet 1 tablet Orally Once a day Active Eliquis 2.5 MG Tablet as directed Orally Active Vital Signs Height 60 in 09/13/2024 Weight 125 lbs 09/13/2024 BMI 24.41 kg/m2 09/13/2024 Height-cm 152.4 cm 09/13/2024 Weight-kg 56.7 kg 09/13/2024 Encounters Encounter Location Date Provider Diagnosis [address] [id number] 09/13/2024 ADRIANE DOLL Primary osteoarthritis, left ankle and foot M19.072 ; 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 I educated the patient on icing and stretching, supportive shoegear, and the use of orthotic devices and bracing. She opted for unna boot today and will bring her supportive shoes next visit so we can dispense otc orthotics. 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 The patient was instructed to keep it dry for 3 days. Then remove and clean daily and apply compression socks and supportive shoes. 09/13/2024 Localized edema (ICD-10 - R60.0) Edema Recommendations: Advised patient on edema treatment recommendations. Recommendation for periodic elevation of feet and lower legs through the day. Recommend support compression hose. Recommend dietary restrictions salt intake. Followup with family physician for potential diuretic management if needed. 09/13/2024 Other Pes Planovalgus I discussed anti-inflammatory treatment options and various means of immobilization with the patient. I educated the patient on icing and stretching, supportive shoegear, and the use of orthotic devices and bracing. 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 I educated the patient on icing and stretching, supportive shoegear, and the use of orthotic devices and bracing. She opted for unna boot today and will bring her supportive shoes next visit so we can dispense otc orthotics. Flat foot [pes planus] (acqu ired), left foot Unna Boot: An unna boot was applied to the affected foot. The patient was instructed to keep it dry for 3 days. Then remove and clean daily and apply compression socks and supportive shoes. Localized edema Edema Recommendations: Advised patient on edema treatment recommendations. Recommendation for periodic elevation of feet and lower legs through the day. Recommend support compression hose. Recommend dietary restrictions salt intake. Followup with family physician for potential diuretic management if needed. Other Pes Planovalgus I discussed anti-inflammatory treatment options and various means of immobilization with the patient. I educated the patient on icing and stretching, supportive shoegear, and the use of orthotic devices and bracing. Next Appt Details Follow Up: 1 Week,2 Weeks,ge t otc orthotics,unna boot follow up, Reason: Provider Name:ADRIANE ODOM, 04/25/2025 12:50:00 PM, [address] [place] [address], [phone], History and Physical Notes * HPI (History of Present Illness) Category Sub-Category Detail Notes Category Not es HPI Follow Up Visit Patient presents for follow-up visit for left ankle. Patient states injection helped her pain for the first three days, but then pain returned. MA LB Examination Category Sub-Category Detail Notes Category Not es Dermatologic Skin findings: bilateral skin i s thin, atrophic and lacking pedal hair. Neurologic Gross sensation Gross sensation is intact to light touch Vascular Dorsalis pedis pulse: 2/4, bilateral Edema: left foot and ankle +2 pitting edema. calves loose and nontender bilateral. no heat. no fluctuance. no erythema. Capillary refill: less than 3 seconds Posterior tibial pulse: 2/4, bilateral Musculoskeletal Muscle Strength Muscle strength is 5/5 in regards to dorsiflexion, plantarflexion, inversion, and eversion in bilateral lower extremities Pain on palpation lateral portal of th e left sinus tarsi and with ROM of the subtalar joint Foot Structure The foot structure i s noted to be planus bilaterally. There is calcaneus valgus noted bilaterally Constitutional Constitutional The patient is a wake, alert, well developed, well groomed and well nourished Progress Notes * Taran FIELDSOB:[birth year] (84 yo F)Acc No.[id number]:09/13/2024 Patient: Christy Higgins Provider: Chetna DOLL :1940 Brittni ge:84 Y S ex:Female Date:09/13/2024 Address:[address] [place], [place] [id number] Subjective: * Chief Complaints: * * Ankle check * HPI: H PI: Follow Up Visit P atient presents for follow-up visit for left ankle. Patient states injection helped her pain for the first three days, but then pain returned. MA LB. * ROS: G eneral / Constitutional: Patient denies c hills, fever, weakness, night sweats. M usculoskeletal: Patient denies c hildhood foot problems, weakness. P atient complains of j oint pain, ankle pain. P eripheral Vascular: Patient denies u lceration of feet, cold extremities. ? S kin: Patient denies u lcerations, discoloration. ? N eurologic: Patient denies b alance difficulty, confusion, difficulty speaking, dizziness. * Medical History: Leg/Feet cramps Arthritis High blood pressure Medical History Verified * Surgical History: appendectomy left knee Surgical History verified. * Hospitalization/Major Diagno stic Procedure: No Hospitalization Documented. Hospitalization Verified. * Family History: N o Family History documented.. F amily History Verified.. * Social History: Social History Verified. No Social History documented. * Medications: T akingMetoprolol Succinate 25 MG Capsule ER 24 Hour Sprinkle 1 capsule Orally Once a day methIMAzole 5 MG Tablet 1 tablet Orally Once a day Eliquis 2.5 MG Tablet as directed Orally Losartan Potassium 100 MG Tablet 1 tablet Orally Once a day amLODIPine Besylate 5 MG Tablet 1 tablet Orally Once a day Medication List reviewed and reconciled with the patientTaking Metoprolol Succinate 25 MG Capsule ER 24 Hour Sprinkle 1 capsule Orally Once a day Taking methIMAzole 5 MG Tablet 1 tablet Orally Once a day Taking Eliquis 2.5 MG Tablet as directed Orally Taking Losartan Potassium 100 MG Tablet 1 tablet Orally Once a day Taking amLODIPine Besylate 5 MG Tablet 1 tablet Orally Once a day Medication List reviewed and reconciled with the patient * Allergies: A moxicillin: AllergyyesAllergies Verified. Objective: * Vitals: S hoe Size: 7, Wt: 125 lbs, Wt-k.7 kg, Ht: 60 in, Ht-cm: 152.4 cm, BMI: 24.41 Index, Body Surface Area: 1.55. * Examination: C onstitutional: Constitutional T he patient is awake, alert, well developed, well groomed and well nourished. D ermatologic: Skin findings: b ilateral s kin is thin, atrophic and lacking pedal hair.. V ascular: Dorsalis pedis pulse: 2 /4, bilateral. Posterior tibial pulse: 2 /4, bilateral. Capillary refill: l ess than 3 seconds. Edema: l eft f oot a nd a nkle + 2 p itting edema. calves loose and nontender bilateral. no heat. no fluctuance. no erythema.. ? N eurologic: Gross sensation G ross sensation is intact to light touch.? M usculoskeletal: Muscle Strength M uscle strength is 5/5 in regards to dorsiflexion, plantarflexion, inversion, and eversion in bilateral lower extremities. Pain on palpation l ateral portal of the left sinus tarsi and with ROM of the subtalar joint. Foot Structure T he foot structure is noted to be planus bilaterally. There is calcaneus valgus noted bilaterally. Assessment: * Assessment: 1. P rimary osteoarthritis, left ankle and foot - M19.072 (Primary) 2 . F lat 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), left foot - M21.42 3 . L ocalized edema - R60.0? Plan: * Treatment: 2. F lat 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), left foot Notes: Unna Boot: An unna boot was applied to the affected foot. The patient was instructed to keep it dry for 3 days. Then remove and clean daily and apply compression socks and supportive shoes. 3. L ocalized edema Notes: Edema Recommendations: Advised patient on edema treatment recommendations. Recommendation for periodic elevation of feet and lower legs through the day. Recommend support compression hose. Recommend dietary restrictions salt intake. Followup with family physician for potential diuretic management if needed. 4. O thers Notes: Pes Planovalgus I discussed anti-inflammatory treatment options and various means of immobilization with the patient. I educated the patient on icing and stretching, supportive shoegear, and the use of orthotic devices and bracing. * Immunizations: Immunization record has been reviewed and updated. * Follow Up: 1 Week,2 Weeks,get otc orthotics,unna boot follow up Billing Information: * Visit Code: 74946 Office Visit, Est Pt., Level 3. * Procedure Codes: * Electronic signature of CAMRON DOLL DPM on 04/16/2025 at 08:32 AM GREEN END WORKER Sign off status: Pending * Provider: Chetna DOLL Date: 0 09/13/2024 Generated for Eliseo woodruff/Justus/Alberto on: 1 08:32 AM GREEN END WORKER
--- OUTSIDE RECORDS SUMMARY | 2024-09-20 06:40 | XMS_ITS ---
Author Organization [facility] Address [address] [place], [place] [address] Care Team Providers Care Sustainability Project Coordinator Name Role Phone DENIS MAKI Unavailable [phone] Kuldip Watt Unavailable Unavailable ADRIANE DOLL Unavailable [phone] Allergies Allergen (clinical drug ingredient) Drug/Non Drug Allergy documented on EMR Reaction Allergy Type Onset Date Status amoxicillin Amoxicillin Unknown Drug Allergy Act aleida REASON FOR VISIT unna boot follow up Medications Medication SIG (Take, Route, Frequency, Duration) Notes Start Date End Date Status Losartan Potassium 100 MG Tablet 1 tablet Orally Once a day Active Eliquis 2.5 MG Tablet as directed Orally Active methIMAzole 5 MG Tablet 1 tablet Orally Once a day Active Metoprolol Succinate 25 MG Capsule ER 24 Hour Sprinkle 1 capsule Orally Once a day Active amLODIPine Besylate 5 MG Tablet 1 tablet Orally Once a day Active Social History Tobacco Use: Social History Observation Description Date Details (start date - stop date) Never Smoker NA - NA Social History Tobacco Use: Social Info Question Answer Notes Tobacco Control (Standard) Tobacco use: Nonsmoker Vital Signs Height 60 in 09/20/2024 Weight 125 lbs 09/20/2024 BMI 24.41 kg/m2 09/20/2024 Height-cm 152.4 cm 09/20/2024 Weight-kg 56.7 kg 09/20/2024 Encounters Encounter Location Date Provider Diagnosis [address] [id number] 09/20/2024 ADRIANE DOLL Primary osteoarthritis, left ankle and foot M19.072 ; 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), 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 and Localized edema R60.0 Assessments Encounter Date Diagnosis (ICD Code) Assessment Notes Treatment Notes Treatment Clinical Notes Section Notes 09/20/2024 Primary osteoarthritis , left ankle and foot (ICD-10 - M19.072) Sinus Tarsi Syndrome: I discussed anti-inflammatory treatment options and various means of immobilization with the patient. I educated the patient on icing and stretching, supportive shoegear, and the use of orthotic devices and bracing. She opted for trilock ankle support with compression and supportive shoes and otc orthotics. 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 09/20/2024 Localized edema (ICD-10 - R60.0) Edema Recommendations: Advised patient on edema treatment recommendations. Recommendation for periodic elevation of feet and lower legs through the day. Recommend support compression hose. Recommend dietary restrictions salt intake. Followup with family physician for potential diuretic management if needed. 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 I educated the patient on icing and stretching, supportive shoegear, and the use of orthotic devices and bracing. She opted for trilock ankle support with compression and supportive shoes and otc orthotics. Flat foot [pes planus] (acqu ired), left foot Unna Boot Removal: Following proper technique, the unna boot was removed without incident. Localized edema Edema Recommendations: Advised patient on edema treatment recommendations. Recommendation for periodic elevation of feet and lower legs through the day. Recommend support compression hose. Recommend dietary restrictions salt intake. Followup with family physician for potential diuretic management if needed. Next Appt Details Provider Name:ADRIANE Enio ODOM, 04/25/2025 12:50:00 PM, [address] [place] [address], [id number], History and Physical Notes * HPI (History of Present Illness) Category Sub-Category Detail Notes Category Not es HPI Follow Up Visit Patient presents for follow-up visit for left ankle pain, the unna boot helped. Patient states that the foot felt better for the 3 days she had the bandage on, but her pain has returned. She states that she has been wearing her compression socks and the swelling has gone. , KASANDRA: lissy Examination Category Sub-Category Detail Notes Category Not es Dermatologic Skin findings: bilateral skin i s thin, atrophic and lacking pedal hair. Neurologic Gross sensation Gross sensation is intact to light touch Vascular Dorsalis pedis pulse: 2/4, bilateral Edema: left foot and ankle no longer have edema. calves loose and nontender bilateral. no [...] groomed and well nourished Progress Notes * DIAMONDRegine LINDAAnmolOB:[birth year] (84 yo F)Acc No.[id number]:09/20/2024 Patient: Christy Higgins Provider: Chetna DOLL :1940 A ge:84 Y S ex:Female Date:09/20/2024 Address:[address] [place], [place] [id number] Subjective: * Chief Complaints: * U nna boot follow up * HPI: H PI: Follow Up Visit P emely presents for follow-up visit for left ankle pain, the unna boot helped. Patient states that the foot felt better for the 3 days she had the bandage on, but her pain has returned. She states that she has been wearing her compression socks and the swelling has gone. , KASANDRA: lissy. * ROS: G eneral / Constitutional: Patient [...] appendectomy left knee Surgical History verified. * Social History: T obacco Use: T obacco Control (Standard) T obacco use: N onsmoker. Social History Verified. * Medications: T akingMetoprolol Succinate 25 MG [...] eft f oot a nd a nkle n o longer have e bebeto. calves loose and nontender bilateral. no heat. [...] [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), left foot Notes: Unna Boot Removal: Following proper technique, the unna boot was removed without incident. 3. L ocalized edema Notes: Edema Recommendations: Advised patient on edema treatment recommendations. Recommendation for periodic elevation of feet and lower legs through the day. Recommend support compression hose. Recommend dietary restrictions salt intake. Followup with family physician for potential diuretic management if needed. * Immunizations: Immunization record has been reviewed and updated. * Procedure Codes: L 1902 AFO ANK GAUNTLT PREFAB W/FIT&ADJ, Modifiers: RT Billing Information: * Visit Code: 38906 Office Visit, Est Pt., Level 3. * Procedure Codes: L1902 AFO ANK GAUNTLT PREFAB W/FIT&ADJ. Modifiers: RT * Electronic signature of CAMRON DOLL DPM on 04/16/2025 at 08:32 AM GOLF BALL INSPECTOR Sign off status: Pending * Provider: Chetna DOLL Date: 0 09/20/2024 Generated for Eliseo woodruff/Justus/Alberto on: 1 08:32 AM GOLF BALL INSPECTOR
--- OUTSIDE RECORDS SUMMARY | 2024-10-11 06:40 | XMS_ITS ---
Author Organization [facility] Address [address] [place], [place] [address] Care Team Providers Care Senior Dentist Name Role Phone DENIS MAKI Unavailable [phone] Kuldip Watt Unavailable Unavailable ADIRANE DOLL Unavailable [phone] Allergies Allergen (clinical drug ingredient) Drug/Non Drug Allergy documented on EMR Reaction Allergy Type Onset Date Status amoxicillin Amoxicillin Unknown Drug Allergy Act aleida REASON FOR VISIT ARTHRITIS CHECK Medications Medication SIG (Take, Route, Frequency, Duration) Notes Start Date End Date Status Losartan Potassium 100 MG Tablet 1 tablet Orally Once a day Active amLODIPine Besylate 5 MG Tablet 1 tablet Orally Once a day Active Metoprolol Succinate 25 MG Capsule ER 24 Hour Sprinkle 1 capsule Orally Once a day Active methIMAzole 5 MG Tablet 1 tablet Orally Once a day Active Eliquis 2.5 MG Tablet as directed Orally Active Social History Tobacco Use: Social History Observation Description Date Details (start date - stop date) Never Smoker NA - NA Social History Tobacco Use: Social Info Question Answer Notes Tobacco Control (Standard) Tobacco use: Nonsmoker Vital Signs Height 60 in 10/11/2024 Weight 125 lbs 10/11/2024 BMI 24.41 kg/m2 10/11/2024 Height-cm 152.4 cm 10/11/2024 Weight-kg 56.7 kg 10/11/2024 Encounters Encounter Location Date Provider Diagnosis [address] [id number] 10/11/2024 ADRIANE DOLL Primary osteoarthritis, left ankle and foot M19.072 ; Plantar fascial fibromatosis M72.2 ; 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), 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 and Localized edema R60.0 Assessments Encounter Date Diagnosis (ICD Code) Assessment Notes Treatment Notes Treatment Clinical Notes Section Notes 10/11/2024 Primary osteoarthritis, left ankle and foot (ICD-10 - M19.072) Sinus Tarsi Syndrome: I discussed anti-inflammatory treatment options and various means of immobilization with the patient. I educated the patient on icing and stretching, supportive shoegear, and the use of orthotic devices and bracing. She utilized trilock ankle support with compression and supportive shoes and otc orthotics which have rsolved this source of pain 10/11/2024 Plantar fascial fibromatosis (ICD-10 - M72.2) Heel Pain: I discussed anti-inflammatory treatment options and various means of pronation control with the patient. I educated the patient on icing and stretching, supportive shoegear, and the use of orthotic devices. 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 10/11/2024 Localized edema (ICD-10 - R60.0) Edema Recommendations: [...] use of orthotic devices and bracing. She utilized trilock ankle support with compression and supportive shoes and otc orthotics which have rsolved this source of pain Plantar fascial fibromatosis Heel Pain: I discussed anti-inflammatory treatment options and various means of pronation control with the patient. I educated the patient on icing and stretching, supportive shoegear, and the use of orthotic devices. Kenalog Injection: Following skin prep, a total of 3 ccs of a 1-1-1 mix of 0.5% marcaine plain, 1% lidocaine plain, and Kenalog was injected left origin of plantar fascial band Flat foot [pes planus] (acqu ired), left [...] diuretic management if needed. Next Appt Details Follow Up: 2 Months, Reason: heel pain check Provider Name:ADRIANE ODOM, 04/25/2025 12:50:00 PM, [address] [place] [address], [id number], History and Physical Notes * HPI (History of Present Illness) Category Sub-Category Detail Notes Category Not es HPI Follow Up Visit Patient presents for follow-up visit for left ankle brace. Patient states that the brace has been helping her ankle pain since wearing it. She states that there has been some heel pain in the last week, and she is not sure why. , MA: [facility] Examination Category Sub-Category Detail Notes Category [...] and with ROM of the subtalar joint Plantar Fascia There is pain on pal pation along the plantar fascia. There are no masses or defects note to the ligament medial band of the left plantar fascia, near its attachment to the calcaneus Foot Structure The foot structure i s noted to be planus bilaterally. There is calcaneus valgus noted bilaterally Constitutional Constitutional The patient is a wake, alert, well developed, well groomed and well nourished Progress Notes * Taran FIELDSOB:[birth year] (84 yo F)Acc No.[id number]:10/11/2024 Patient: Christy Higgins Provider: Chetna DOLL :1940 A ge:84 Y S ex:Female Date:10/11/2024 Address:[address] [place], [place] [id number] Subjective: * Chief Complaints: * A RTHRITIS CHECK * HPI: H PI: Follow Up Visit P atient presents for follow-up visit for left ankle brace. Patient states that the brace has been helping her ankle pain since wearing it. She states that there has been some heel pain in the last week, and she is not sure why. , MA: lissy.? * ROS: G eneral / Constitutional: Patient [...] and with ROM of the subtalar joint. Plantar Fascia T here is pain on palpation along the plantar fascia. There are no masses or defects note to the ligament m edial band of the left plantar fascia, near its attachment to the calcaneus. Foot Structure T he foot structure is noted to be planus bilaterally. There is calcaneus valgus noted bilaterally. Assessment: * Assessment: 1. P lantar fascial fibromatosis - M72.2 (Primary) 2 . P rimary osteoarthritis, left ankle and foot - M19.072 3 . F lat 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), left foot - M21.42 4 . L ocalized edema - R60.0 Plan: * Treatment: 2. P rimary osteoarthritis, left ankle and foot Notes: Sinus Tarsi Syndrome: I discussed anti-inflammatory treatment options and various means of immobilization with the patient. I educated the patient on icing and stretching, supportive shoegear, and the use of orthotic devices and bracing. She utilized trilock ankle support with compression and supportive shoes and otc orthotics which have rsolved this source of pain 3. F lat 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), left foot Notes: Unna Boot Removal: Following proper technique, the unna boot was removed without incident. 4. L ocalized edema Notes: Edema Recommendations: Advised patient on edema treatment recommendations. Recommendation for periodic elevation of feet and lower legs through the day. Recommend support compression hose. Recommend dietary restrictions salt intake. Followup with family physician for potential diuretic management if needed. * Immunizations: Immunization record has been reviewed and updated. * Procedure Codes: 2 0550 INJ TENDON SHEATH/LIGAMENT, Modifiers: LT * Follow Up: 2 Months (Reason: heel pain check) Billing Information: * Procedure Codes: 00311 INJ TENDON SHEATH/LIGAMENT. Modifiers: LT * Electronic signature of CAMRON DOLL DPM on 04/16/2025 at 08:33 AM HORSE SHOW JUDGE Sign off status: Pending * Provider: Chetna DOLL Date: 0 10/11/2024 Generated for Eliseo woodruff/Justus/Elmoitting on: 1 08:33 AM HORSE SHOW JUDGE
--- OUTSIDE RECORDS SUMMARY | 2024-12-13 06:50 | XMS_ITS ---
Author Organization [facility] Address [address] [place], [place] [id number] Care Team Providers Care Mold Tooling Technician Name Role Phone DENIS MAKI Unavailable [phone] Kuldip Watt Unavailable Unavailable ADRIANE DOLL Unavailable [phone] Allergies Allergen (clinical drug ingredient) Drug/Non Drug Allergy documented on EMR Reaction Allergy Type Onset Date Status amoxicillin Amoxicillin Unknown Drug Allergy Act aleida REASON FOR VISIT ARTHRITIS FOLLOWUP Medications Medication SIG (Take, Route, Frequency, Duration) Notes Start Date End Date Status methIMAzole 5 MG Tablet 1 tablet Orally Once a day Active Metoprolol Succinate 25 MG Capsule ER 24 Hour Sprinkle 1 capsule Orally Once a day Active Losartan Potassium 100 MG Tablet 1 tablet Orally Once a day Active Eliquis 2.5 MG Tablet as directed Orally Active amLODIPine Besylate 5 MG Tablet 1 tablet Orally Once a day Active Vital Signs Height 60 in 12/13/2024 Weight 125 lbs 12/13/2024 BMI 24.41 kg/m2 12/13/2024 Height-cm 152.4 cm 12/13/2024 Weight-kg 56.7 kg 12/13/2024 Encounters Encounter Location Date Provider Diagnosis [address] [id number] 12/13/2024 ADRIANE DOLL Primary osteoarthritis, left ankle and foot M19.072 ; Plantar fascial fibromatosis M72.2 ; 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), 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 and Localized edema R60.0 Assessments Encounter Date Diagnosis (ICD Code) Assessment Notes Treatment Notes Treatment Clinical Notes Section Notes 12/13/2024 Primary osteoarthritis, left ankle and foot (ICD-10 - M19.072) Sinus Tarsi Syndrome: I discussed anti-inflammatory treatment options and various means of immobilization with the patient. I educated the patient on icing and stretching, supportive shoegear, and the use of orthotic devices and bracing. She utilized trilock ankle support with compression and supportive shoes and otc orthotics which have rsolved this source of pain 12/13/2024 Plantar fascial fibromatosis (ICD-10 - M72.2) Heel [...] injected left origin of plantar fascial band 12/13/2024 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), left foot (ICD-10 - M21.42) Unna Boot Removal: Following proper technique, the unna boot was removed without incident. 12/13/2024 Localized edema (ICD-10 - R60.0) Edema Recommendations: [...] check Provider Name:ADRIANE ODOM, 04/25/2025 12:50:00 PM, [address] [place] [address], [id number], History and Physical Notes * HPI (History of Present Illness) Category Sub-Category Detail Notes Category Not es HPI Follow Up Visit Patient presents for follow up visit for bilateral foot pain, Patient states their problem is improving MA: nd Examination Category Sub-Category Detail Notes Category Not [...] * Taran FIELDSOB:[birth year] (84 yo F)Acc No.[id number]:12/13/2024 Patient: Roque diamond Christy Provider: Chetna DOLL :1940 A ge:84 Y S ex:Female Date:12/13/2024 Address:[address] [place] [address], [facility] Subjective: * Chief Complaints: * A RTHRITIS FOLLOWUP * HPI: H PI: Follow Up Visit P emely presents for follow up visit for bilateral foot pain, Patient states their problem is i mproving M A: nd. * ROS: G eneral / Constitutional: Patient [...] History verified. * Hospitalization/Major Diagno stic Procedure: Denies Past Hospitalization. Hospitalization Verified. * Family History: N o [...] for potential diuretic management if needed. * Preventive Medicine: Screenings: F all risk screening F all Risk Assessment: N o falls in the past year. * Follow Up: 2 Months (Reason: heel pain check) Billing Information: * Visit Code: 33683 Office Visit, Est Pt., Level 3. * Procedure Codes: * Electronic signature of CAMRON DOLL DPM on 04/16/2025 at 08:33 AM BLEACHER PULP Sign off status: Pending * Provider: Chetna DOLL Date: 0 12/13/2024 Generated for Eliseo woodruff/Justus/Alberto on: 1 08:33 AM BLEACHER PULP
--- OUTSIDE RECORDS SUMMARY | 2025-02-14 06:50 | XMS_ITS ---
Author Organization [facility] Address [address] [place], [place] [id number] Care Team Providers Care Respiratory Support Technician Name Role Phone DENIS MAKI Unavailable [phone] Kuldip Watt Unavailable Unavailable ADRIANE DOLL Unavailable [phone] Allergies Allergen (clinical drug ingredient) Drug/Non Drug Allergy documented on EMR Reaction Allergy Type Onset Date Status amoxicillin Amoxicillin Unknown Drug Allergy Act aleida REASON FOR VISIT *General care Medications Medication SIG (Take, Route, Frequency, Duration) Notes Start Date End Date Status Metoprolol Succinate 25 MG Capsule ER 24 Hour Sprinkle 1 capsule Orally Once a day Active methIMAzole 5 MG Tablet 1 tablet Orally Once a day Active Eliquis 2.5 MG Tablet as directed Orally Active Losartan Potassium 100 MG Tablet 1 tablet Orally Once a day Active amLODIPine Besylate 5 MG Tablet 1 tablet Orally Once a day Active Vital Signs Height 60 in 02/14/2025 Weight 125 lbs 02/14/2025 BMI 24.41 kg/m2 02/14/2025 Height-cm 152.4 cm 02/14/2025 Weight-kg 56.7 kg 02/14/2025 Encounters Encounter Location Date Provider Diagnosis [address] [id number] 02/14/2025 ADRIANE DOLL Tinea unguium B35.1 ; Pain in left foot M79.672 ; Plantar fascial fibromatosis M72.2 ; Atherosclerosis of tangirnaq arteries of extremities with intermittent claudication, bilateral legs I70.213 ; Primary osteoarthritis, left ankle and foot M19.072 ; 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), 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 ; Localized edema R60.0 and Acquired keratosis [keratoderma] palmaris et plantaris L85.1 Assessments Encounter Date Diagnosis (ICD Code) Assessment Notes Treatment Notes Treatment Clinical Notes Section Notes 02/14/2025 Tinea unguium (ICD-10 - B35.1) NAIL DEBRIDEMENT: Nails 1-5 Bilateral were debrided extensively with nail nippers and emery board, reducing length and girth to pink healthy tissue with any subungual debris and necrotic tissue removed 02/14/2025 Pain in left foot (ICD-10 - M79.672) 02/14/2025 Plantar fascial fibromatosis (ICD-10 - M72.2) Heel Pain there is only a callus left foot that hurts now and no remaining heel pain 02/14/2025 Atherosclerosis of tangirnaq arteries of extremities with intermittent claudication, bilateral legs (ICD-10 - I70.213) Patient educated on risks and aggravating factors of PVD, including conservative treatment options such as a diet and exercise regimen to aid in slowing progression of vascular disease. Check and protect LE bilateral daily. Call if any changes or concerns. 02/14/2025 Primary osteoarthritis, left ankle and foot (ICD-10 - M19.072) Sinus Tarsi Syndrome: I discussed anti-inflammatory treatment options and various means of immobilization with the patient. I educated the patient on icing and stretching, supportive shoegear, and the use of orthotic devices and bracing. She utilized trilock ankle support with compression and supportive shoes and otc orthotics which have rsolved this source of pain When she tries to walk without the trilock she often gets return of pain. She suspects the bone on bone arthritis of her right knee puts pressure on her left ankle. She is considering right knee surgery in 02/14/2025 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), left foot (ICD-10 - M21.42) 02/14/2025 Localized edema (ICD-10 - R60.0) Edema Recommendations: Advised patient on edema treatment recommendations. Recommendation for periodic elevation of feet and lower legs through the day. Recommend support compression hose. Recommend dietary restrictions salt intake. Followup with family physician for potential diuretic management if needed. 02/14/2025 Acquired keratosis [keratoderma] palmaris et plantaris (ICD-10 - L85.1) Hyperkeratosis: The skin was prepped with isopropyl alcohol. Using a 15-blade scalpel, the hyperkeratotic skin lesions were sharply debrided down to healthy appearing skin. x 2 Plan Of Treatment Treatment Notes Assessment Notes Tinea unguium NAIL DEBRIDEMENT: Na ils 1-5 Bilateral were debrided extensively with nail nippers and emery board, reducing length and girth to pink healthy tissue with any subungual debris and necrotic tissue removed Plantar fascial fibromatosis Heel Pain t here is only a callus left foot that hurts now and no remaining heel pain Atherosclerosis of tangirnaq ar teries of extremities with intermittent claudication, bilateral legs Patient educated on risks and aggravatin g factors of PVD, including conservative treatment options such as a diet and exercise regimen to aid in slowing progression of vascular disease. Check and protect LE bilateral daily. Call if any changes or concerns. Primary osteoarthritis, left ankle and f oot Sinus Tarsi Syndrome: I discussed anti-inflammatory treatment options and various means of immobilization with the patient. I educated the patient on icing and stretching, supportive shoegear, and the use of orthotic devices and bracing. She utilized trilock ankle support with compression and supportive shoes and otc orthotics which have rsolved this source of pain When she tries to walk without the trilock she often gets return of pain. She suspects the bone on bone arthritis of her right knee puts pressure on her left ankle. She is considering right knee surgery in April Localized edema Edema Recommendations: Advised patient on edema treatment recommendations. Recommendation for periodic elevation of feet and lower legs through the day. Recommend support compression hose. Recommend dietary restrictions salt intake. Followup with family physician for potential diuretic management if needed. Acquired keratosis [keratode rma] palmaris et plantaris Hyperkeratosis: The skin was prepped with isopropyl alcohol. Using a 15-blade scalpel, the hyperkeratotic skin lesions were sharply debrided down to healthy appearing skin. x 2 Next Appt Details Follow Up: 3 Months, [facility] brace, Reason: Provider Name:ADRIANE ODOM, 04/25/2025 12:50:00 PM, [address] [place] [address], [phone], History and Physical Notes * HPI (History of Present Illness) Category Sub-Category Detail Notes Category Not es HPI General care Patient presents to the office for left ankle chronic pain and foot care. Patient states that their nails are thickened, elongated and painful. Patient states that it is aggravated by shoe gear. Onset is gradual., Patient is taking prescription blood thinners., Date last seen by Dr. Watt was 11/2024., Initials nd Examination Category Sub-Category Detail Notes Category Not es Dermatologic Skin findings: bilateral skin i s thin, atrophic and lacking pedal hair. Nail pathology: Nails 1-5 bilateral are elongated, thick, discolored, and dystrophic with subungual debris. They are painful to palpation Hypertrophic / hyperkeratotic lesion: bi lateral 2nd digit and left medial plantar heel Neurologic Gross sensation Gross sensation is intact to light touch Vascular Dorsalis pedis pulse: 2/4, bilateral Edema: left foot and ankle no longer have edema but does come back if she does not wear compression. calves loose and nontender bilateral. no heat. no fluctuance. no erythema. Capillary refill: less than 3 seconds Posterior tibial pulse: 1/4, bilateral Musculoskeletal Muscle Strength Muscle strength is [...] well developed, well groomed and well nourished Dermatologic Skin findings: Skin is thin, atrophic and lacking pedal hair. Progress Notes * Taran FIELDSOB:[birth year] (84 yo F)Acc No.[id number]:02/14/2025 Patient: Christy Higgins Provider: Chetna DOLL :1940 A ge:84 Y S ex:Female Date:02/14/2025 Address:[address] [place], [place] [id number] Subjective: * Chief Complaints: * * General care * HPI: H PI: General care P emely presents to the office for left ankle chronic pain and foot care. Patient states that their nails are thickened, elongated and painful. Patient states that it is aggravated by shoe gear. Onset is gradual., Patient is taking prescription blood thinners., Date last seen by Dr. Watt was 11/2024., Initials nd. * ROS: G eneral / Constitutional: Patient denies c hills, fever, weakness, night sweats. M usculoskeletal: Patient denies c hildhood foot problems, weakness. P emely complains of j oint pain, ankle pain. [...] is thin, atrophic and lacking pedal hair.. Hypertrophic / hyperkeratotic lesion: b ilateral 2nd digit and left medial plantar heel. Nail pathology: N ails 1-5 bilateral are elongated, thick, discolored, and dystrophic with subungual debris. They are painful to palpation. ? V ascular: Dorsalis pedis pulse: 2 /4, bilateral. Posterior tibial pulse: 1 /4, bilateral. Capillary refill: l ess than 3 seconds. Edema: l eft f oot a nd a nkle n o longer have e bebeto but does come back if she does not wear compression. calves loose and nontender bilateral. no heat. no fluctuance. no erythema.. N eurologic: Gross sensation G ross sensation [...] bilaterally. There is calcaneus valgus noted bilaterally. D ermatologic: Skin findings: S kin is thin, atrophic and lacking pedal hair.. Assessment: * Assessment: 1. T inea unguium - B35.1 (Primary) 2 . P ain in left foot - M79.672 ? 3 . P lantar fascial fibromatosis - M72.2 4 . A therosclerosis of tangirnaq arteries of extremities with intermittent claudication, bilateral legs - I70.213 5. P rimary osteoarthritis, left ankle and foot - M19.072 6 . F lat 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), left foot - M21.42 7 . L ocalized edema - R60.0 ? 8 . A cquired keratosis [keratoderma] palmaris et plantaris - L85.1 Plan: * Treatment: 2. P lantar fascial fibromatosis Notes: Heel Pain there is only a callus left foot that hurts now and no remaining heel pain ? 3. A therosclerosis of tangirnaq arteries of extremities with intermittent claudication, bilateral legs Notes: Patient educated on risks and aggravating factors of PVD, including conservative treatment options such as a diet and exercise regimen to aid in slowing progression of vascular disease. Check and protect LE bilateral daily. Call if any changes or concerns. 4. P rimary osteoarthritis, left ankle and foot Notes: Sinus Tarsi Syndrome: I discussed anti-inflammatory treatment options and various means of immobilization with the patient. I educated the patient on icing and stretching, supportive shoegear, and the use of orthotic devices and bracing. She utilized trilock ankle support with compression and supportive shoes and otc orthotics which have rsolved this source of pain When she tries to walk without the trilock she often gets return of pain. She suspects the bone on bone arthritis of her right knee puts pressure on her left ankle. She is considering right knee surgery in April 5. L ocalized edema Notes: Edema Recommendations: Advised patient on edema treatment recommendations. Recommendation for periodic elevation of feet and lower legs through the day. Recommend support compression hose. Recommend dietary restrictions salt intake. Followup with family physician for potential diuretic management if needed. 6. A cquired keratosis [keratoderma] palmaris et plantaris Notes: Hyperkeratosis: The skin was prepped with isopropyl alcohol. Using a 15-blade scalpel, the hyperkeratotic skin lesions were sharply debrided down to healthy appearing skin. x 2 * Follow Up: 3 Months, consider [place] Billing Information: * Visit Code: 98041 Office Visit, Est Pt., Level 3. * Procedure Codes: * Electronic signature of CAMRON DOLL DPM on 04/16/2025 at 08:33 AM TOOL AND DIE REPAIRER Sign off status: Pending * Provider: Chetna DOLL Date: Generated for Eliseo woodruff/Justus/Alberto on: 08:33 AM TOOL AND DIE REPAIRER
--- OUTSIDE RECORDS SUMMARY | 2025-04-16 08:33 | XMS_ITS | Clinical Summary ---
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 Gender Identity Not on file Sexual Orientation Not on file Last Filed Vital Signs Vital Sign Reading Time Taken Comments Blood Pressure 136/71 03/09/2022 1:14 PM TAX ACCOUNTING ASSISTANT Pulse 69 03/09/2022 1:14 PM TAX ACCOUNTING ASSISTANT Temperature 36.3 C (97.3 F) 03/09/2022 1:14 PM TAX ACCOUNTING ASSISTANT Respiratory Rate 16 03/09/2022 1:14 PM TAX ACCOUNTING ASSISTANT Oxygen Saturation 96% 03/09/2022 1:14 PM TAX ACCOUNTING ASSISTANT Inhaled Oxygen Concentration - - Weight 64.4 [...] 75+ series) 2017 COVID-19 Vaccine ( - 2024-2 6 season) 2024 Influenza Adult (#1) 2025 Hepatitis A Vaccines Aged Out No long er eligible based on patient's age to complete this topic Meningococcal B Vaccine Aged Out No l [...] ADLs upon discharge from hospital Lifestyle Karina Kennedy RN Medical Devices Implanted Type Area Landing Gear Mechanic Device Identifier Shelf Expiration Date Model / Serial / Lot Cement Simplex Hv W/Gentamicin - [id number] Implanted:Qty: 1 on 03/08/2022 by Franky Layton MD at [facility] Cement Implant Left: Knee [employer] 07/17/2023 6195-1-00 [id number] D Cement Simplex Hv W/Gentamicin - [id number] Implanted:Qty: 1 on 03/08/2022 by Franky Layton MD at [facility] Cement Implant Left: Knee [employer] 07/17/2023 6195-00 [id number] D Attune Femoral Cruciate Retaining Implanted:Qty: 1 on 03/08/2022 by Franky Layton MD at [facility] Left: Knee [employer] 09/16/2031 1504-00-1 05 / / [id number] Attune Knee System Revision Tibial Base Fixed Bearing Implanted:Qty: 1 on 03/08/2022 by Franky Layton MD at [facility] Left: Knee [employer] [id number] 12/17/2031 1506-40-0 05 / / [id number] Attune Patella Medialized Dome Implanted:Qty: 1 on 03/08/2022 by Franky Layton MD at [facility] Left: Knee [employer] 06/15/2026 1518-20-0 32 / / [id number] Attune Knee System Tibial Insert Fixed Bearing Cruciate Retaining Implanted:Qty: 1 on 03/08/2022 by Franky Layton MD at [facility] Left: Knee 06/15/2026 1516-20-5 08 / / [id number] Insurance [employer] MEDICARE Advance Directives Documents on File Type Date Recorded 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
--- OUTSIDE RECORDS SUMMARY | 2025-04-16 08:33 | XMS_ITS | Patient Health Record ---
Author Organization [facility] Address [address] [place], [place] [id number] Care Team Providers Care Director Of Curriculum And Instruction Name Role Phone DENIS MAKI Unavailable [phone] Kuldip Wtat Unavailable Unavailable ADRIANE DOLL Unavailable [phone] Allergies Allergen (clinical drug ingredient) Drug/Non Drug [...] Control (Standard) Tobacco use: Nonsmoker Vital Signs Height-cm 152.4 cm 02/14/2025 Weight-kg 56.7 kg 02/14/2025 Height 60 in 02/14/2025 Weight 125 lbs 02/14/2025 BMI 24.41 kg/m2 02/14/2025 Encounters Encounter Location Date Provider Diagnosis [address] [id number] 09/13/2024 ADRIANE DOLL Primary osteoarthritis, left ankle and foot M19.072 ; 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), 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 and Localized edema R60.[address] [id number] 09/20/2024 ADRIANE DOLL Primary osteoarthritis, left ankle and foot M19.072 ; 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), 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 and Localized edema R60.[address] [id number] 10/11/2024 ADRIANE DOLL Primary osteoarthritis, left ankle and foot M19.072 ; Plantar fascial fibromatosis M72.2 ; 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), 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 and Localized edema R60.[address] [id number] 12/13/2024 ADRIANE DOLL Primary osteoarthritis, left ankle and foot M19.072 ; Plantar fascial fibromatosis M72.2 ; 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), 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 and Localized edema R60.[address] [id number] 02/14/2025 ADRIANE DOLL Tinea unguium B35.1 ; Pain in left foot M79.672 ; Plantar fascial fibromatosis M72.2 ; Atherosclerosis of circle arteries of extremities with intermittent claudication, bilateral legs I70.213 ; Primary osteoarthritis, left ankle and foot M19.072 ; 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), 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 ; Localized edema R60.0 and 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 02/14/2025 Atherosclerosis of circle arteries of extremities with intermittent claudication, bilateral [...] She is considering right knee surgery in 08/16/2024 Pain in right foot (ICD-10 - M79.671) 02/14/2025 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), left [...] down to healthy appearing skin. x 2 09/13/2024 Other Pes Planovalgus I discussed anti-inflammatory treatment options and various means of immobilization with the patient. I educated the patient on icing and stretching, supportive shoegear, and the use of orthotic devices and bracing. Plan Of Treatment Next Appt Details Provider Name:ADRIANE ODOM, 04/25/2025 12:50:00 PM, [address] [place] [address], [phone], Insurance Providers Payer Name Payer Address Payer Phone Subscriber Number Group Number Insured Name Patient Relationship to Insured Coverage Start Date Coverage End Date [employer] [address] [place] OBRIEN [phone] [id number] Christy Taylor Self - patient is the insured Medical (General) History Medical History History ICD Code Leg/Feet cramps Arthritis high blood pressure Surgical History Surgery Date(Month/Year) appendectomy left knee
--- OUTSIDE RECORDS SUMMARY | 2025-04-16 08:33 | XMS_ITS | Clinical Summary ---
Author Organization [facility] Address [address] [place] [address] Care Team Providers Care Cell Tender Helper Name Role Phone Kuldip Wattrish Primary Care [...] times a day 120 mL 05/29/2024 Active metoprolol XL (TOPROL-XL) 50 mg extended release tabletIndication s:Graves disease Take 1 tablet (50 mg total) by mouth daily 90 tablet 3 06/15/2024 Active Eliquis 2.5 mg tablet Take 1 tablet (2.5 mg total) by mouth 2 (two) times a day 12/05/2024 Active methIMAzole (TAPAZOLE) 5 mg tabletIndication s:Graves disease Take 1 tablet (5 mg total) by mouth daily 30 tablet 11 03/08/2025 6 Active Active Problems Problem Noted Date Diagnosed Date Low TSH level 05/27/2024 Assessment & Plan (05/29/2024 12:05 PM [employer]): - in workup for Afib noted TSH [...] 05/26/2024 Assessment & Plan (05/29/2024 12:01 PM [employer]ING [employer]ER): - ENT was consulted from ED and [...] 05/26/2024 Assessment & Plan (05/26/2024 11:19 AM [employer]ING G[employer]ER): -continue home losartan hctz -ctm Atrial fibrillation 05/26/2024 Assessment & Plan (05/29/2024 12:03 PM [employer]ER): - EKG with AF w rate 114 [...] 05/26/2024 Assessment & Plan (05/26/2024 11:20 AM [employer]ING G[employer]ER): Pulmonary nodules, for example right upper lobe [...] (05/26/2024): Added automatically from request for surgery [id number] Bilateral knee pain 02/04/2022 Encounters Date Type Department Care Team Description 03/05/2025 Results Follow-Up [facility] Medicine Endocrinology Metabolism and Lipid [address] [facility] [address] [place] [address] [place] [address] Kika Goodman MD PhD TSH, T4, free 01/15/2025 8:48 AM CDT - 01/15/2025 11:59 PM CDT Hospital Encounter [facility] [address] [place] [address] Chronic atrial fibrillation (HCC) Discharge Disposition: Discharge to home or self care 01/15/2025 8:20 AM CDT Office Visit [facility] Medicine Endocrinology Metabolism and Lipid [address] [facility] [address] [place] [address] [place] [address] Kika Goodman MD PhD Graves disease (Primary Dx); Chronic atrial fibrillation (HCC); Hypertension, essential from Last 3 Months Immunizations Immunization Administration Dates Next Due ZOSTER LIVE 04/17/2013 Surgical History Surgery Date Site/Laterality Comments REPLACEMENT TOTAL KNEE 04/18/2021 - 04/17/2022 Left Family History Medical History Relation Name Comments Hyperthyroidism Daughter Carlene s/p MARTIN Relation Name Status Comments Daughter Carlene Alive Social History Tobacco Use Types Packs/Day Years Used Date Smoking Tobacco: Never Tobacco Cessation:Counseling Given: No [facility] Utilities Answer Date Recorded In the past 12 months has th e electric, gas, oil, or water [employer] threatened to shut off services in your home? No 05/30/2024 Social Connection and Isolation Panel Answer Date Recorded In a typical week, how many times do you talk on the phone with family, friends, or neighbors? Twice a week 05/30/2024 How often do you get togethe r with friends or relatives? More than three times a week 05/30/2024 How often do you attend [facility] or methodist services? More than 4 times per year 05/30/2024 Do you belong to any clubs o r organizations such as restoration groups, unions, fraternal or athletic groups, or [...] any time in the past [address] [facility], were you homeless or living in a fci (including now)? No 05/30/2024 Personal Safety Answer Date Recorded Have you ever been in or are you currently in a harmful physical or emotional relationship or is someone making you feel afraid or unsafe? Denies 05/26/2024 Comments Unknown Sex and Gender Information Value Date Recorded Sex Assigned at Not on file Legal Sex Female 5:17 PM [employer] Gender Identity Not on file Sexual Orientation Not on file Last Filed Vital Signs Vital Sign Reading Time Taken Comments Blood Pressure 130/89 01/15/2025 8:01 AM CDT Pulse 89 01/15/2025 8:01 AM CDT Temperature 36.9 C (98.4 F) 01/15/2025 8:01 AM CDT Respiratory Rate 16 05/29/2024 2:25 PM [employer] Oxygen Saturation 100% 05/29/2024 2:25 PM [employer] Inhaled Oxygen Concentration - - Weight 62.5 kg (137 lb 12.8 oz) 01/15/2025 8:01 AM CDT Height 148.6 cm (4' 10.5) 01/15/2025 8:01 AM CD T Body Mass Index 28.31 01/15/2025 8:01 AM CDT Plan of Treatment Health Maintenance Due Date Last Done Comments Depression Screening 1940 Osteoporosis Screening-Bone Density Scan 1942 Hepatitis B Screening 1960 Well Visit 65+ 2007 Zoster Vaccine (2 of 3) 06/12/2013 04/17/2013 Pneumococcal vaccine 65+ (2 of 2 - PPSV23, PCV20, or PCV21) 03/27/2019 01/30/2019 Influenza Vaccine (#1) 2024 Fall Risk Assessment 05/29/2025 05/29/2024 DTaP/Tdap/Td Vaccine (2 - Td or Tdap) 01/30/2029 Procedures Procedure Name Priority Date/Time Associated Diagnosis Comments T4, FREE Routine 03/05/2025 1:19 PM [employer] Graves disease TSH Routine 03/05/2025 1:19 PM [employer] Graves disease ECG 12-LEAD Routine 01/15/2025 9:00 AM CDT Chronic atrial fibrillation (HCC) from Last 3 Months Results * TSH (03/05/2025 1:19 PM [employer]) Blood us Kika Abrams MD PhD LAB BLOOD ORDERABLES Final Result EXTERNAL LAB * T4, free (03/05/2025 1:19 PM [employer]) Blood us Kika Abrams MD PhD LAB BLOOD ORDERABLES Final Result EXTERNAL LAB * ECG 12 lead (01/15/2025 9:00 AM CDT) Ventricular Rate EKG/Min 85 BPM [facility] Atrial Rate 267 BPM [facility] QRS-Interval (MSEC) 136 ms [facility] QT-Interval (MSEC) 372 ms [facility] QTc 442 ms [facility] R Parnell 46 degrees [facility] T Parnell 35 degrees [facility] Diagnosis Atrial fibrillation Right bundle branch block Possible Lateral infarct , age undetermined Abnormal ECG No previous ECGs available Confirmed by DELICIA LAGOS M.D ([id number]) on 01/15/2025 7:47:46 PM [facility] 01/15/2025 9:00 AM CDT 01/15/2025 7:47 PM CDT us Kika Abrams MD PhD ECG ORDER MCKAY Final Result [facility] from Last 3 Months Insurance T MEDICARE T MEDICARE Advance Directives For more information, please contact: [phone] * LIMITED - No CPR (Latest Code Status on File) Date Activated Date Inactivated Comments 05/26/2024 11:11 AM 05/29/2024 6:50 PM Question Answer Comments Provide aggressive medical m anagement before a full cardiopulmonary arrest occurs. Use antibiotics, IV Fluids, and medical treatment unless specifically selected below: No intubation Care Teams Cell Tender Helper Relationship Specialty Start Date End Date Kuldip Watt DO [address] [place] [address] PCP - General Family Medicine 05/25/24
[2025-04-16 09:45] LABS: Free T4 Free Thyroxine 0.80 ng/dL (0.78-2.19)
[2025-04-16 09:59] LABS: Thyroid Stimulating Hormone 9.360 uIU/mL (0.465-4.680)
== END 2025-04-16 08:23 | disposition home or self-care (01) ==
LOC: CHSLAB 08:25
PROVIDERS: PCP Family Medicine
DX: E05.00 Thyrotoxicosis with diffuse goiter without thyrotoxic crisis or storm (principal)
CPT/HCPCS: 36415; 84439; 84443